=== PATIENT | male | born 1960 | race Caucasian/White ===

== ENCOUNTER 2019-11-22 12:22 | Observation (INO) | payer MEDICARE, SELFPAY ==
[2019-11-22] VITALS (46 sets, daily range): BP systolic 130–198; BP diastolic 56–110; PULSE 43–106; RESP 11–23; TEMP 36.6–37; O2SAT 92–97
--- NOTE | 2019-11-22 12:45 | DI.RAD_ITS ---
EXAM: XR CHEST 2V PA LATERAL XR CHEST 2V PA LATERAL CLINICAL HISTORY: dizziness dizziness TECHNIQUE: 2D digital imaging was performed. COMPARISON: No exams were available for comparison FINDINGS: The heart is not enlarged. The lungs are clear and well expanded. No pleural effusion seen. Mediastin al contours appear intact. IMPRESSION: Normal chest
[2019-11-22] MEDS: Normal Saline 1,000 ML 1000 ML IV (13:15)
[2019-11-22] MEDS: Normal Saline Flush 10 ML SYR IVP ×2 (13:15→21:41)
[2019-11-22 13:19] LABS: Abs Immature Grans 0.02 k/cumm (0.0-0.09); Absolute Basophil Count 0.03 k/cumm (0.0-0.2); Absolute Eosinophil Count 0.03 k/cumm (0.0-0.7); Absolute Lymphocyte Count 1.17 k/cumm (1.2-3.4); Absolute Neutrophil Count 6.89 k/cumm (1.2-6.7); Basophils % 0.3; Eosinophils % 0.3; HCT 46.2 % (40.0-50.0); HGB 15.5 g/dL (13.5-17.5); Immature Grans % 0.2 %; Lymphocytes % 13.5; Mean Corp. HGB Concentration 33.5 g/dL (32.0-36.0); Mean Corpuscular Hemoglobin 29.8 pg (27.0-33.0); Mean Corpuscular Volume 88.7 fL (80-95); Mean Platelet Volume 8.9 fL (8.0-11.0); Monocytes % 5.8; Neutrophils % 79.9; Platelet Count 268 x1000/uL (130-400); RBC 5.21 m/cumm (4.50-6.00); RBC Distribution Width 13.5 % (11.8-14.1); White Blood Cell Count 8.64 k/cumm (4.4-10.8)
[2019-11-22 13:37] LABS: ALT 36 U/L (16-63); AST 24 U/L (15-37); Alkaline Phosphatase 62 U/L (46-116); Anion Gap 8.6 mmol/L (3-11); BUN 17 mg/dL (7-18); Bilirubin, Total 0.4 mg/dL (0.2-1.0); CO2 27.4 mmol/L (21.0-32.0); CREATININE 0.96 mg/dL (0.70-1.30); Calcium 8.6 mg/dL (8.5-10.1); Chloride 103 mmol/L (98-107); Glucose 113 mg/dL (74-106); Sodium 139 mmol/L (136-145); Total Protein 7.6 g/dL (6.4-8.2)
[2019-11-22 13:40] LABS: Troponin I < 0.05 ng/Ml (<0.06)
[2019-11-22 13:52] LABS: D-Dimer 523 ng/mlFEU (<500)
--- NOTE | 2019-11-22 14:30 | DI.CT_ITS ---
EXAM: CT CHEST PE CTA CLINICAL HISTORY: dizziness, elevated ddimer TECHNIQUE: COMPARISON: No exams were available for comparison FINDINGS: CT angiography of the chest was performed with bolus infusion of 100 cc of Omnipaque 350. Images obt ained through the upper abdomen show probable hepatic steatosis with unremarkable appearance the visu alized portions of the spleen pancreas and adrenals. No evidence of pulmonary embolic disease. Thoracic aorta appears intact. No mediastinal or hilar ad enopathy. Lungs are clear. No pleural effusion or pleural-based mass. IMPRESSION: Negative CT angiography of the chest.
[2019-11-22] MEDS: Omnipaque 350 MG/ML 100 ML BTL IV (15:33)
--- NOTE | 2019-11-22 16:04 | W.ED.GENAD ---
Discharge Plan Disposition Patient Disposition: [facility] INPATIENT Condition: Good Discharge Details Chief Complaint: Dizzy/Sync Clinical Impression: Atypical chest pain Admit Date/Time: 11/22/19 18:17 Admit Provider: Mehrdad Marrufo Attending Provider: Mehrdad Marrufo Primary Care Provider: Da Ospina ED Provider: Joy Lee Discharge Data Discharge Date/Time-TO BE ENTERED AT DEPARTURE: 11/22/19 19:10 Medical Decision Making <DALE Dotson - Last Filed: 11/22/19 21:07> Care transitioned to myself from Cherelle Ramires PA-C, with consultation with hospitalist pending. Please see her initial documentation for exam and history and initial work-up. 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 She reports that patient came in complaining of nausea, clamminess, dizziness after working outside. He denied any chest pain. Initial EKG was significant for 1 mm change. Patient does have significant history including hypertension which has been poorly controlled as well as smoking history. Patient is obese. Secondary to financial restrictions, patient has not been able to take his antihypertensives 1 month. He was given nitroglycerin on arrival which did improve his persistent symptoms of dizziness and nausea. Patient's d-dimer was 523, CT was ordered and negative for pulmonary embolism. Troponin x2 was less than 0.05. Repeat EKG was significant for bigeminy. Patient has been on the monitor and been intermittently in bigeminy rhythm. Consulted with hospitalist regarding admission. Patient to be admitted for atypical chest pain, continue monitoring and consultation with cardiology tomorrow. <DALE Rajput - Last Filed: 11/23/19 15:05> Is a 59-year-old patient presenting to the emergency room for evaluation of lightheadedness nausea and diaphoresis which occurred while he was exerting himself at home. Patient reports symptoms were abrupt in onset and quite obvious. Patient reports mild relief in symptoms when resting then had return of lightheadedness and nausea. This prompted his evaluation to the emergency room. Patient at this time denies chest pain or radiating symptoms. Patient does report persistent head pressure as well as lightheadedness and nausea. Patient denies any syncopal episode. Patient reports diaphoresis is somewhat improved at this time. Denies any palpitations. Denies abdominal pain or bowel changes. No recent upper respiratory symptoms or flulike illness. Patient is a former smoker, family history of heart disease, history of hypertension hyperlipidemia. Initial labs ordered as well as EKG obtained. EKG reveals a heart rate of 104, sinus tachycardia, ectopic ventricular beats present. [address] segment elevation noted in V1 and V2 new compared to previous, however not meeting criteria for ST elevation MD. This was reviewed with Dr. Haynes. Patient given nitro given hypertension noted as well as persistent symptoms. After nitro patient's symptoms did entirely resolve. Initial labs reveal normal troponin, no associated leukocytosis. Patient's d-dimer is mildly elevated therefore CT with PE protocol ordered. Patient's calculated heart score is 5. Given patient's risk factors and concerning story upon presentation I will recommend this patient is admitted to the hospital for further evaluation. Spoke with the hospitalist recommending admission for the hospital however would prefer to wait for second troponin prior to admission to be sure no transfer is warranted. Repeat troponin also returned normal. Reevaluation of the patient reveals no persistent symptoms at this time. Patient signed out pending disposition specifically admission to the hospitalist. HPI <DALE Dotson - Last Filed: 11/22/19 21:07> General Date/Time Provider Initiated Documentation: 11/22/19 12:27. Related Data Home Medications Medication Instructions Recorded Confirmed aspirin 1 tab PO every other day tab 01/11/13 inhalational spacing device 01/11/13 [Aerochamber] levalbuterol tartrate [Xopenex Hfa] 2 puff INHALATION QID PRN #3 01/11/13 11/22/19 inhaler amlodipine 5 mg PO DAILY #30 tab 11/23/19 losartan 100 mg PO DAILY #90 tab 11/23/19 metoprolol succinate [Toprol XL] 25 mg PO DAILY #90 tab 11/23/19 Previous Rx's Medication Instructions Recorded amlodipine 5 mg PO DAILY #30 tab 11/23/19 losartan 100 mg PO DAILY #90 tab 11/23/19 metoprolol succinate [Toprol XL] 25 mg PO DAILY #90 tab 11/23/19 Allergies Allergy/AdvReac Type Severity Reaction Status Date / Time Penicillins Allergy Unknown Unverified 11/22/19 12:34 lisinopril AdvReac Intermediate JOINT PAIN Unverified 11/22/19 12:34 <DALE Rajput - Last Filed: 11/23/19 15:05> HPI Narrative: Is a 59-year-old patient presenting to the emergency room for complaints of lightheadedness, nausea and 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 Patient reports he was exerting himself during onset of symptoms. Patient reports he needed to stop, sit down. He did have minimal relief of symptoms at this time. Patient reports another wave of significant nausea and diaphoresis which prompted his evaluation to the emergency room. Patient denies active chest pain. Patient denies back pain. Patient denies difficulty breathing or shortness of breath or wheezing. Patient denies abdominal pain. No diarrhea. Patient denies any recent upper respiratory symptoms. Patient denies any fevers or chills. Patient reports at this time he has persistent nausea and a pressure type lightheaded feeling in his head. Patient does report he has been noncompliant with his blood pressure medication both losartan and amlodipine. Patient was been out of his blood pressure medication for 1 month and has been unable to fill them due to finances. Patient does report a history of hypertension as well as hyperlipidemia. Patient does have a significant family history mother had heart attacks and several strokes. Patient is a former smoker. Denies any personal history of MD in the past. General Stated Complaint: Dizzy/Sync CHARLES: 3 <DALE Rajput - Last Filed: 11/23/19 15:05> All systems reviewed & are unremarkable except as noted in HPI and below Constitutional Constitutional: Denies chills, Denies fatigue, Denies fever(s), Denies headache(s) and Denies malaise ENT Ears, Nose, Mouth, and Throat: Denies headache(s), Denies sinus pain, Denies sinus pressure and Denies sore throat Cardiovascular Cardiovascular: Denies chest pain, Denies chest pain at rest, Denies chest pain with activity, Reports diaphoresis, Denies syncope, Reports lightheadedness, Denies radiating jaw, neck or arm pain, Denies palpitations, Denies dyspnea and Denies dyspnea on exertion Respiratory Respiratory: Denies cough, Denies dyspnea, Denies dyspnea on exertion and Denies wheezing Gastrointestinal Gastrointestinal: Denies abdominal pain, Reports nausea and Denies vomiting Genitourinary Genitourinary: Denies dysuria Neurologic Neurologic: Denies syncope and Denies headache(s) Endocrine Endocrine: Denies fatigue and Denies palpitations Allergic/Immunologic Allergic/Immunologic: Denies wheezing PFSH <DALE Dotson - Last Filed: 11/22/19 21:07> Medical History HTN (hypertension) (Chronic) Surgical History (Updated 11/22/19 @ 23:19 by Mehrdad Marrufo) Failed back surgical syndrome (Acute) Social History Smoking/Tobacco Use Status: Former Tobacco Use Alcohol Intake: current Alcohol Intake frequency: a few times a month Drug use: Never Substance use type: does not use Details: quit smoking many years ago Do you feel safe at home: Yes Do you feel safe in your relationship?: Yes <DALE Rajput - Last Filed: 11/23/19 15:05> Narrative Exam Narrative: CONST: Healthy appearing patient, in no acute distress. Well hydrated. Alert and alert. HENMT: Head nomocephalic, normal to inspection. Atraumatic. Hearing grossly normal. External ear canal no erythema or swelling. TM normal bilaterally. Nose normal to inspection. No rhinnorhea. Normal facial exam. Oral mucosa normal. Tounge normal. Dentition normal. Normal posterior oropharynx. Uvula midline. EYES: General normal appearance. Alignment normal. Eyelids normal. Conjunctiva normal. Sclera normal. PERRL. NECK: Normal visual inspection. FROM. No lymphadenopathy. Trachea midline. No Midline tenderness. CHEST: Normal insepection of the chest. RESP: Normal respiratory effort. Speaking full sentences. No cough. No wheezing. No retractions. Clear to auscaltation. Breath sound equal and present bilaterally. CARDIO: No JVD. Normal PMI. Regular Rate. Regular Rhythm. Normal peripheral pulses. GI: Normal inspection of abdomen. No distension. Soft. Nontender. Bowel sounds present in all 4 quadrants. No rebound. No gaurding. MUSCULOSKELETAL: Normal Gait. FROM of all extremities. Distal neurovascularly intact. Sensation intact distally. Edema noted of bilateral lower legs left mildly greater than right SKIN: Normal. Dry. No rashes. NEURO: Alert and awake. Speech clear. PSYCH: Normal affect. Cooperative. <DALE Rajupt - Last Filed: 11/23/19 15:05> Vital Signs Vital signs: Vital Signs Temperature 36.8 C 11/22/19 12:27 Pulse 106 H 11/22/19 12:27 Respiratory Rate 18 11/22/19 12:27 Blood Pressure 191/84 H 11/22/19 12:27 Pulse Oximetry 97 11/22/19 12:27 Temperature 36.8 C 11/22/19 12:27 Temperature Source Skin 11/22/19 12:27 Pulse 65 11/22/19 14:40 Pulse 85 11/22/19 14:21 Respiratory Rate 11 L 11/22/19 14:50 Respiratory Effort Non-Labored 11/22/19 13:24 Respiratory Depth Normal 11/22/19 13:24 Respiratory Pattern Normal 11/22/19 13:24 Blood Pressure 147/67 H 11/22/19 14:40 Blood Pressure Mean 85 11/22/19 14:40 Blood Pressure Position Sitting 11/22/19 12:27 Pulse Oximetry 97 11/22/19 14:50 Oxygen Delivery Method Room Air 11/22/19 12:27 Oxygen Flow Rate 0 11/22/19 12:27 Pain Level 1 11/22/19 12:27 Lab/Test Results Lab/Test Results: Laboratory Tests Range/Units 11/22/19 11/22/19 11/22/19 13:10 13:10 13:10 WBC (4.4-10.8) k/cumm 8.64 RBC (4.50-6.00) m/cumm 5.21 Hgb (13.5-17.5) g/dL 15.5 Hct (40.0-50.0) % 46.2 MCV (80-95) fL 88.7 MCH (27.0-33.0) pg 29.8 MCHC (32.0-36.0) g/dL 33.5 RDW (11.8-14.1) % 13.5 Plt Count (130-400) x1000/uL 268 MPV (8.0-11.0) fL 8.9 Immature Gran % % 0.2 Neutrophils % 79.9 Lymphocytes % 13.5 Monocytes % 5.8 Eosinophils % 0.3 Basophils % 0.3 Absolute Neutrophils (1.2-6.7) k/cumm 6.89 H Absolute Lymphocytes (1.2-3.4) k/cumm 1.17 L Absolute Monocytes (0.11-0.7) k/cumm 0.50 Absolute Eosinophils (0.0-0.7) k/cumm 0.03 Absolute Basophils (0.0-0.2) k/cumm 0.03 D-Dimer (<500) ng/mlFEU 523 H Sodium (136-145) mmol/L 139 Potassium (3.5-5.1) mmol/L 4.0 Chloride (98-107) mmol/L 103 Carbon Dioxide (21.0-32.0) mmol/L 27.4 Anion Gap (3-11) mmol/L 8.6 BUN (7-18) mg/dL 17 Creatinine (0.70-1.30) mg/dL 0.96 Estimated GFR/1.73 m2 (mL/min/1.73m2) >= 60.00 Glucose (74-106) mg/dL 113 H Calcium (8.5-10.1) mg/dL 8.6 Total Bilirubin (0.2-1.0) mg/dL 0.4 AST (15-37) U/L 24 ALT (16-63) U/L 36 Alkaline Phosphatase (46-116) U/L 62 Troponin I (<0.06) ng/Ml < 0.05 Total Protein (6.4-8.2) g/dL 7.6 Albumin (3.4-5.0) g/dL 4.0 Sign Out <DALE Dotson - Last Filed: 11/22/19 21:07> Sign Out Data: Sign Out Comment: Signout pending disposition to hospitalist. Second troponin negative. Noted run of bigeminy on EKG. Last updated by Rosa Momin PA at 11/22/19 16:53
[2019-11-22 16:06] LABS: Troponin I < 0.05 ng/Ml (<0.06)
--- NOTE | 2019-11-22 21:14 | W.PM.HP.N ---
Date of service: 11/22/19 Time of Service: 21:14 Assessment and Plan Assessment and plan (1) Atypical chest pain: Start date: 11/22/19 Status: Acute Assessment and plan: This is a 59-year-old gentleman who had exertional symptoms which resolved with nitroglycerin sublingually in the ED. He denied any chest pressure or chest pain but did have dizziness with diaphoresis and nausea. Since his symptoms did resolve with nitroglycerin sublingually and they were exertional with cardiovascular risk being elevated with uncontrolled hypertension and truncal obesity, the patient was admitted for observation for serial cardiac troponins and for exercise stress tests with nuclear studies in the morning. Cardiology consultation was also ordered. He is a full code. (2) HTN (hypertension): Status: Chronic Assessment and plan: Patient been off his antihypertensives recently and we will restart his amlodipine and losartan with first dose is to be given tonight. Also will start IV metoprolol for acute blood pressure control. Watch for exacerbation of his bronchospasm with use of beta-blockers. He will have his inhalers as ordered at home as well as as needed treatment during his hospital stay. His asthma appears to be stable. 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 Over the last several weeks he has not been able to take his antihypertensives because of cost. 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 He denies any history of previous cardiac disease, cerebrovascular events or diabetes. 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 He then had an onset of diaphoresis and nausea which persisted with EMS being called. He arrived at the ED with hypotension and tachycardia which appeared to be sinus. EKG did not show any acute ST-T changes though some mild ST elevation in the anterior leads which did not resolve with resolution of his symptoms with his second nitroglycerin sublingually in the ED. At the time I saw the patient he was comfortable without shortness of breath, his diaphoresis had resolved and he had no nausea. He does have a strong family history of heart disease with the mother having a heart attack when she was 40 and eventually dying of a stroke. He does have chronic hypertension presently untreated as stated. He denies any edema or PND with the patient sleeping flat in bed on his side. Review of Systems Narrative: 13 point review of systems otherwise unrevealing or stable. Patient is overweight and this is been chronic. He has no focal neurological symptoms with his event. [facility] Medical History (Updated 11/22/19 @ 23:22 by Mehrdad Marrufo) Asthma dependent on inhaled steroids (Acute) HTN (hypertension) (Chronic) Surgical History (Updated 11/22/19 @ 23:19 by Mehrdad Marrufo) Failed back surgical syndrome (Acute) Social History (Updated 06/23/18 @ 14:15 by Rito Restrepo) Smoking/Tobacco Use Status: Former Tobacco Use Alcohol Intake: current Alcohol Intake frequency: a few times a month Drug use: Never Substance use type: does not use Details: quit smoking many years ago Do you feel safe at home: Yes Do you feel safe in your relationship?: Yes Meds Home Medications and Allergies Home Medications Medication Instructions Recorded Confirmed Type aspirin 1 tab PO every other day tab 01/11/13 History fluticasone propion-salmeterol 1 puff INHALATION BID disk 01/11/13 11/22/19 History [Advair 250-50 Diskus] inhalational spacing device 01/11/13 History [Aerochamber] ipratropium-albuterol [Duoneb 0.5 1 amp UPD QID PRN 01/11/13 11/22/19 History Mg-3 Mg/3 Ml Soln] levalbuterol tartrate [Xopenex Hfa] 2 puff INHALATION QID PRN #3 01/11/13 11/22/19 History inhaler amlodipine 5 mg tablet 5 mg PO DAILY #90 tab-cap 02/24/19 11/22/19 Rx losartan 100 mg tablet 100 mg PO DAILY #90 tab-cap 09/14/19 11/22/19 Rx Allergies Allergy/AdvReac Type Severity Reaction Status Date / Time Penicillins Allergy Unknown Unverified 11/22/19 12:34 lisinopril AdvReac Intermediate JOINT PAIN Unverified 11/22/19 12:34 Exam Narrative Exam Narrative: General: Patient appears appropriate for age, in no acute distress and alert and oriented x3. He is moderately obese but mesomorphic. Neck: Supple without JVD. Lungs: Fair aeration with bronchovesicular breath sounds diffusely but no expiratory wheeze or inspiratory focal rales or rhonchi. Back: Stooped posture with no CVA tenderness. Loss of lumbar lordotic curve. Heart: Regular rate and rhythm with no murmurs appreciated. No gallops. Abdomen: Obese contour, soft and nontender with no palpable hepatosplenomegaly. Bowel sounds positive all quadrants. Genitalia/rectal: Exam deferred. Extremities: Nonpitting edema both lower extremities without cyanosis or clubbing. Joints have fair range of motion with no edema. Peripheral pulses are intact with good capillary refill. Skin: Pale, warm and dry with diffuse actinic changes with no suspicious lesions. Neuro: Cranial nerves II through XII grossly intact, no focalizing motor deficits with sensory grossly intact. Psych: Normal mood and affect, remote and recent memory intact. Results Imaging Imaging Studies: EXAM: CT CHEST PE CTA CLINICAL HISTORY: dizziness, elevated ddimer TECHNIQUE: COMPARISON: No exams were available for comparison FINDINGS: CT angiography of the chest was performed with bolus infusion of 100 cc of Omnipaque 350. Images obtained through the upper abdomen show probable hepatic steatosis with unremarkable appearance the visualized portions of the spleen pancreas and adrenals. No evidence of pulmonary embolic disease. Thoracic aorta appears intact. No mediastinal or hilar adenopathy. Lungs are clear. No pleural effusion or pleural-based mass. IMPRESSION: Negative CT angiography of the chest. EXAM: XR CHEST 2V PA LATERAL XR CHEST 2V PA LATERAL CLINICAL HISTORY: dizziness dizziness TECHNIQUE: 2D digital imaging was performed. COMPARISON: No exams were available for comparison FINDINGS: The heart is not enlarged. The lungs are clear and well expanded. No pleural effusion seen. Mediastinal contours appear intact. IMPRESSION: Normal chest Labs Result diagrams: 11/22/19 13:10 11/22/19 13:10 Labs: Laboratory Results - last 24 hr 11/22/19 11/22/19 11/22/19 13:10 13:10 13:10 WBC 8.64 RBC 5.21 Hgb 15.5 Hct 46.2 MCV 88.7 MCH 29.8 MCHC 33.5 RDW 13.5 Plt Count 268 MPV 8.9 Immature Gran % 0.2 Neutrophils % 79.9 Lymphocytes % 13.5 Monocytes % 5.8 Eosinophils % 0.3 Basophils % 0.3 Absolute Neutrophils 6.89 H Absolute Lymphocytes 1.17 L Absolute Monocytes 0.50 Absolute Eosinophils 0.03 Absolute Basophils 0.03 D-Dimer 523 H Sodium 139 Potassium 4.0 Chloride 103 Carbon Dioxide 27.4 Anion Gap 8.6 BUN 17 Creatinine 0.96 Estimated GFR/1.73 m2 >= 60.00 Glucose 113 H Calcium 8.6 Total Bilirubin 0.4 AST 24 ALT 36 Alkaline Phosphatase 62 Troponin I < 0.05 Total Protein 7.6 Albumin 4.0 11/22/19 15:40 WBC RBC Hgb Hct MCV MCH MCHC RDW Plt Count MPV Immature Gran % Neutrophils % Lymphocytes % Monocytes % Eosinophils % Basophils % Absolute Neutrophils Absolute Lymphocytes Absolute Monocytes Absolute Eosinophils Absolute Basophils D-Dimer Sodium Potassium Chloride Carbon Dioxide Anion Gap BUN Creatinine Estimated GFR/1.73 m2 Glucose Calcium Total Bilirubin AST ALT Alkaline Phosphatase Troponin I < 0.05 Total Protein Albumin Last Vital Signs Temp 36.6 C 11/22/19 19:34 Pulse 88 11/22/19 20:50 Resp 19 11/22/19 19:34 BP 165/110 H 11/22/19 19:34 Pulse Ox 96 11/22/19 19:34
[2019-11-22] MEDS: amLODIPine 5 MG TAB PO (21:33)
[2019-11-22] MEDS: Enoxaparin 40 MG/0.4 ML SYR SC (21:34)
[2019-11-22] MEDS: Losartan 50 MG TAB 100 MG PO (21:34)
[2019-11-22] MEDS: Metoprolol 5 MG/5 ML VIAL IVP (21:41)
[2019-11-22 22:30] LABS: Troponin I < 0.05 ng/Ml (<0.06)
--- NOTE | 2019-11-23 | DI.NM_ITS ---
APPROVED REPORT Exam: Exercise Treadmill Patient Location: In-Patient Room/Bed: 216 Stress Nurse: Nohemy Avendaño RN BMI: 46.80 Baseline Rhythm: Sinus Rhythm w/ multiform PVC's Comment: Also noted Ventricular Bigeminy when patient was standing prior to stress test. Indications: Patient testing today for further risk stratification. 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 Patient states he did not have chest pain with this episode. Troponins have been negative X3. Medical History Medical History: Obesity Cardiac Medications: Aspirin, Amlodipine, Losartan. Allergies: Penicillin, Lisinopril Cardiac Risk Factors: FHX of CAD, HTN, Asthma Previous Cardiac Procedures: None Pretest Chest Pain Characteristics: None Exercise History: Physically active Physical Disabilities: None Lung Sounds: Clear to auscultation and diminished Heart Sounds: Irregular Stress Test Details Test: Exercise stress testing was performed using a Jairo protocol. Rest Stress HR Resting HR Supine: 99 bpm Max Heart Rate (APMHR): 160 bpm Resting HR Standin bpm Target HR (85% APMHR): 136 bpm Max HR Achieved: 164 bpm % of APMHR: 102 HR response to stress: Normal HR response to stress Comment: 152 BP Resting BP Supine: 152/90 mmHg Resting BP Standin/72 mmHg Max BP: 190/82 mmHg BP response to stress: Normal blood pressure response to stress. ECG Resting ECG: Sinus Rhythm, Bigeminy Ectopy: Bigeminy Stress ECG: Sinus Tachycardia ST Change: Normal Arrhythmia: VPC's Recovery ECG: Sinus Rhythm, Multiple PVCs/couplets Recovery Arrhythmia: VPC Comment: Recovery period noted frequent PVC's, occasional unifocal PVC couplets, intermittent ventric ular bigeminy/trigeminy. Clinical Reason for Termination: Dyspnea Stress Symptoms: Dyspnea Exercise duration: 6 min32 sec Highest Stage Reached: Stage 3: 3.4 mph at 14% grade. Exercise capacity: 7.87 METs Functional Capacity: Mildly deminished capacity Stress ECG Conclusion 1. Patient exercised for 6 minutes and 30 seconds (8 METS). Rate-pressure product was 27,000. The p atient no symptoms associated with ischemia 2. The patient had multiple PVCs at baseline and occasional bigeminy. During exercise burden of PVCs decreased. During recovery again he had significant PVC burden. 3. There is no evidence of ischemia on the ECG portion of this exam. 4. The Rodriguez Score (6) estimates an annual cardiovascular mortality of 0% and a five year survival of 95%. Using the Rodriguez Score there is a low probability of any angiographic coronary disease. Protocol Used: Jairo Protocol Stress Test Summary STAGE Time (mins) Speed (mph) Grade (%) HR BP SYMPTOMS METS Supine 99 152/90 Standing 109 136/72 1 3 1.7 10 135 148/86 4.6 2 6 2.5 12 154 168/90 7 3 9 3.4 14 10.2 4 12 4.2 16 12.9 5 15 5.0 18 17.2 1 min recovery 148 190/82 3 min recovery 113 160/90 6 min recovery 103 148/92 9 min recovery 12 min recovery
[2019-11-23 00:24] VITALS: BP 148/78; PULSE 77; RESP 19; TEMP 36.8; O2SAT 96
[2019-11-23] MEDS: Aspirin 81 MG CHEW 162 MG PO ×2 (00:28→08:27)
[2019-11-23 04:08] VITALS: BP 145/83; PULSE 76; RESP 16; TEMP 36.6; O2SAT 94
[2019-11-23 06:40] LABS: Troponin I < 0.05 ng/Ml (<0.06)
[2019-11-23 07:21] VITALS: BP 128/77; PULSE 79; RESP 16; TEMP 36.7; O2SAT 96
[2019-11-23 07:52] LABS: HCT 45.8 % (40.0-50.0); HGB 15.3 g/dL (13.5-17.5); Mean Corp. HGB Concentration 33.4 g/dL (32.0-36.0); Mean Corpuscular Hemoglobin 29.9 pg (27.0-33.0); Mean Corpuscular Volume 89.5 fL (80-95); Mean Platelet Volume 9.2 fL (8.0-11.0); Platelet Count 245 x1000/uL (130-400); RBC 5.12 m/cumm (4.50-6.00); RBC Distribution Width 13.8 % (11.8-14.1); White Blood Cell Count 6.94 k/cumm (4.4-10.8)
[2019-11-23 08:11] LABS: ALT 35 U/L (16-63); AST 19 U/L (15-37); Albumin 3.6 g/dL (3.4-5.0); Alkaline Phosphatase 59 U/L (46-116); Anion Gap 7.7 mmol/L (3-11); BUN 15 mg/dL (7-18); Bilirubin, Total 0.5 mg/dL (0.2-1.0); CO2 28.3 mmol/L (21.0-32.0); CREATININE 0.96 mg/dL (0.70-1.30); Calcium 8.3 mg/dL (8.5-10.1); Chloride 104 mmol/L (98-107); Glucose 107 mg/dL (74-106); Potassium 3.9 mmol/L (3.5-5.1); Sodium 140 mmol/L (136-145); Total Protein 7.2 g/dL (6.4-8.2)
--- NOTE | 2019-11-23 08:11 | INITIAL_ITS ---
- If Service Date Differs Date of service: 11/23/19 Time of Service: 08:11 Care Management Initial Assess REASON FOR HOSPITALIZATION:: Atypical chest pain, HTN PAST MEDICAL HISTORY/PAST SURGICAL HISTORY:: HTN, back surgery PREVIOUS FUNCTIONAL STATUS/SOCIAL/FAMILY SUPPORTS:: Bean is he lives alone in [facility] he is disabled related to a back injury. 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 His children are local and supportive. His daughter is here with him today. Bean has no support services or equipment at home he states he is independent with ADL's CURRENT FUNCTIONAL STATUS:: Jose Ramon is sitting up in the chair he is alert and engaged during assessment. He states that he was confused about his insurance he thought he had medication assistance through [place] medicaid however CM verified this is not active. ADVANCE DIRECTIVES:: None on file Has patient been provided with information about the portal?: Yes Did the patient sign up for the portal?: No CODE STATUS:: Full Code INSURANCE COVERAGE / FINANCIAL ISSUES:: Medicare CURRENT HOME/COMMUNITY SERVICES/EQUIPMENT:: None PRIMARY CARE PHYSICIAN:: POTENTIAL DISCHARGE NEEDS:: Referral to [facility] assistance with [facility], primary care follow up scheduled 11/29/2019. Patient will need prescription assistance in the future. CM was able to have all the scripts faxed to [facility] in [place] and total of meds under 50.00 for one month supply. PATIENT/FAMILY EDUCATION NEEDS:: Education related to benefits, medications, coordination of dietary consult and review of referrals and resources in the community to assist with additional resources. ANTICIPATED BARRIERS TO DISCHARGE:: None TRANSPORTATION:: Via private car with daughter at time of discharge PLAN:: Jose Ramon is being discharged home today after his stress test. He will follow up with primary care and a referral to [facility] for insurance assistance and [facility]. He will have enough medications for 30 days and he and his daughter are aware he can obtain his prescriptions at [facility] pharmacy for less cost if he is unable to obtain prescription plan.
[2019-11-23] MEDS: amLODIPine 5 MG TAB PO (08:27)
[2019-11-23] MEDS: Losartan 50 MG TAB 100 MG PO (08:27)
[2019-11-23 11:10] VITALS: BP 118/79; PULSE 94; RESP 22; TEMP 36.6; O2SAT 96
--- NOTE | 2019-11-23 12:37 | W.NUTCONSULT ---
Date of service: 11/23/19 Time of Service: 12:37 Nutritional Consult ASSESSMENT: 59 year old male admitted with chest pain. PMH: HTN, morbid obesity. Currently NPO for procedure, diet will be advanced to heart healthy at dinner. Not considered at nutritional risk at this time. MONITORING AND EVALUATION: weight, po intake, labs Time Spent in Nutritional Counseling and Treatment: 0 time spent face to face
--- NOTE | 2019-11-23 13:02 | DSE_ITS ---
DS: Diagnosis Discharge Diagnosis (1) Atypical chest pain: Status: Resolved Asessment and Plan: Resume your home blood pressure medications of losartan 100 mg daily along with amlodipine 5 mg daily. New medications include Toprol XL 25 mg daily (metoprolol succinate 25 mg daily). continue aspirin 81 mg daily. get your cholesterol level and glycohemoglobin A1c checked in the next two weeks and follow up w/ Dr. Ospina in the next 2 weeks. If you have any recurrent chest pain or pressure or unusual shortness of breath, return to the emergency room or call 911. (2) HTN (hypertension): Status: Chronic Asessment and Plan: Your blood pressure has come under much better control since initiation of amlodipine and losartan. New prescriptions have been given to you to resume your blood pressure medications. You have also been started on metoprolol succinate 25 mg once a day for treatment of ectopic ventricular beats. (3) Ventricular ectopy: Status: Acute Asessment and Plan: Begin metoprolol succinate 25 mg daily. Follow-up with your primary care physician in the next 2 weeks. Consider obtaining a Holter monitor as an outpatient. Discharge Plan Disposition Patient Disposition: HOME Condition: Good Discharge Details Chief Complaint: Dizzy/Sync Clinical Impression: Atypical chest pain Reason For Visit: ATYPICAL EXERTINAL CHEST PAIN,UNCONTR HYPERTENSION Admit Date/Time: 11/22/19 18:17 Admit Provider: Mehrdad Marrufo Attending Provider: Mehrdad Marrufo Primary Care Provider: Da Ospina ED Provider: [facility] Course Hospital Course: 59-year-old carreon with history of hypertension who is been off his medications for the past month secondary to cost. He presented emergency department with lightheadedness and dizziness and diaphoresis and nausea associated with exertion. He was noted to be significantly hypertensive and tachycardic in the emergency department with blood pressures upwards of 198/96. Patient had serial troponins obtained which were negative and serial EKGs that did not show acute ischemic changes. His symptoms resolved with 2 nitroglycerin tablets. He was subsequently hospitalized overnight and blood pressures remained stable after resumption of his losartan and Norvasc. He underwent a treadmill gated exercise stress test which was supervised by Dr. Mehrdad Vides. According to Dr. Vides there was no acute ischemic changes. However his baseline ECG demonstrates sinus rhythm with ventricular bigeminy. His resting heart rate standing was 109 bpm and his maximum heart rate achieved was 164 bpm which is above his predicted maximal heart rate of 160 bpm his maximum blood pressure with exercise was 190/82. During the recovery. He had PVCs including couplets and unifocal and intermittent runs of ventricular bigeminy and trigeminy. He exercised for 12 6 minutes and 30 seconds achieving 8 METS. He demonstrated no evidence of ischemia on the ECG portion of exam. His Rodriguez risk score was 6 giving him an annual cardiovascular mortality of 0% and a 5-year survival of 95%. Based on this the patient was felt to be medically stable for discharge. Post stress test he felt fine and denied any shortness of breath or chest pain. He is advised to resume his home blood pressure medications including amlodipine 5 mg daily and losartan 100 mg daily and to add Toprol-XL 25 mg daily for his PVCs. An outpatient glycohemoglobin A1c and lipid profile will be obtained to help further risk stratify him and treat secondary causes of coronary artery disease. Home Meds and New Rx's Prescriptions: New amlodipine 5 mg Tablet 5 mg PO DAILY Qty: 30 RF: 1 metoprolol succinate [Toprol XL] 25 mg tablet extended release 24 hr 25 mg PO DAILY Qty: 90 RF: 0 losartan 100 mg tablet 100 mg PO DAILY Qty: 90 RF: 0 Continued aspirin 325 MG tablet 1 tab PO every other day RF: 0 Discontinued fluticasone propion-salmeterol [Advair Diskus] 1 EACH blister with device 1 puff Inhalation BID RF: 0 ipratropium-albuterol [DuoNeb] 3 ML solution for nebulization 1 amp UPD QID PRNRF: 0 amlodipine 5 mg tablet 5 mg PO DAILY Qty: 90 RF: 4 losartan 100 mg tablet 100 mg PO DAILY Qty: 90 RF: 3 No Action (DME) inhalational spacing device [Aerochamber Plus Flow-Vu,S Msk] 1 EACH spacer 1 ea Miscellaneous QID RF: 0 levalbuterol tartrate [Xopenex HFA] 15 GM HFA aerosol inhaler 2 puff Inhalation QID PRNQty: 3 RF: 4 Discharge Instructions Instructions: Chest Pain (DC), Hypertension (DC) Stand Alone Forms: Nursing Discharge Form Referrals: Da Ospina DO [Primary Care Provider] - Activity:: Activity as Tolerated Equipment/Supplies:: No Equipment Needed Diet:: Low-cholesterol Discharge Orders Discharge Orders: Discharge Order (Routine); Ordered 11/23/19 Ordered By: Pillo Queen Other Ambulatory Orders: Hemoglobin A1C (Routine) Timeframe: 2 Weeks Facility: [facility] - Location: Laboratory Ordered By: Pillo Queen Lipid 2 (Routine) Timeframe: 2 Weeks Facility: [facility] - Location: Laboratory Ordered By: Pillo Queen DS: Summary Status at Discharge Functional status at discharge: independent ambulation Overall status at discharge: patient is back to baseline Mental Status: mental status grossly normal Speech and Movement: speech and movement normal Mood: congruent mood Affect: normal affect Exam Narrative Exam Narrative: Obese male sitting up in his chair in no distress. He is alert and oriented person place time circumstance. Very pleasant to talk with. All questions were answered for the patient as well as the patient's daughter. Lungs are clear to auscultation. Heart is regular with frequent ectopic beats. No audible murmur or rub. Abdomen is obese and soft and nontender. Psych Mental Status: mental status grossly normal Speech and Movement: speech and movement normal Mood: congruent mood Affect: normal affect DS: Data Vitals/I&O Vitals and I&O: Vital Signs Temperature 36.6 C 11/23/19 11:10 Temperature Source Tympanic 11/23/19 11:10 Pulse 94 H 11/23/19 11:10 Pulse Rhythm Regular 11/23/19 08:30 Pulse 81 11/22/19 18:40 Respiratory Rate 22 11/23/19 11:10 Respiratory Effort Non-Labored 11/23/19 08:30 Respiratory Depth Normal 11/23/19 08:30 Respiratory Pattern Normal 11/23/19 08:30 Blood Pressure 118/79 11/23/19 11:10 Blood Pressure Mean 76 11/22/19 17:40 Blood Pressure Position Sitting 11/22/19 12:27 Pulse Oximetry 96 11/23/19 11:10 Oxygen Delivery Method Room Air 11/23/19 11:10 Oxygen Flow Rate 0 11/23/19 11:10 Pain Level 0 11/23/19 11:10 Intake & Output 11/22/19 11/23/19 11/23/19 23:59 11:59 23:59 Intake Total 10 Output Total 300 / 300 400 / 400 Balance -290 / -290 -400 / -400 Weight 140.8 kg 135.1 kg Intake: IV Output: Urine 300 / 300 400 / 400 Other: Urine Color Yellow Yellow Urine Appearance Clear Clear Stool Size Small Stool Characteristics Liquid Voiding Methods Toilet Data Completed and Pending Labs on day of discharge: Labs from last 24 hours 11/23/19 11/23/19 11/23/19 07:25 07:25 05:35 WBC 6.94 RBC 5.12 Hgb 15.3 Hct 45.8 MCV 89.5 MCH 29.9 MCHC 33.4 RDW 13.8 Plt Count 245 MPV 9.2 Immature Gran % Neutrophils % Lymphocytes % Monocytes % Eosinophils % Basophils % Absolute Neutrophils Absolute Lymphocytes Absolute Monocytes Absolute Eosinophils Absolute Basophils D-Dimer Sodium 140 Potassium 3.9 Chloride 104 Carbon Dioxide 28.3 Anion Gap 7.7 BUN 15 Creatinine 0.96 Estimated GFR/1.73 m2 >= 60.00 Glucose 107 H Calcium 8.3 L Total Bilirubin 0.5 AST 19 ALT 35 Alkaline Phosphatase 59 Troponin I < 0.05 Total Protein 7.2 Albumin 3.6 TSH 11/22/19 11/22/19 11/22/19 21:50 15:40 13:10 WBC RBC Hgb Hct MCV MCH MCHC RDW Plt Count MPV Immature Gran % Neutrophils % Lymphocytes % Monocytes % Eosinophils % Basophils % Absolute Neutrophils Absolute Lymphocytes Absolute Monocytes Absolute Eosinophils Absolute Basophils D-Dimer Sodium Potassium Chloride Carbon Dioxide Anion Gap BUN Creatinine Estimated GFR/1.73 m2 Glucose Calcium Total Bilirubin AST ALT Alkaline Phosphatase Troponin I < 0.05 < 0.05 Total Protein Albumin TSH 1.20 11/22/19 11/22/19 11/22/19 13:10 13:10 13:10 WBC 8.64 RBC 5.21 Hgb 15.5 Hct 46.2 MCV 88.7 MCH 29.8 MCHC 33.5 RDW 13.5 Plt Count 268 MPV 8.9 Immature Gran % 0.2 Neutrophils % 79.9 Lymphocytes % 13.5 Monocytes % 5.8 Eosinophils % 0.3 Basophils % 0.3 Absolute Neutrophils 6.89 H Absolute Lymphocytes 1.17 L Absolute Monocytes 0.50 Absolute Eosinophils 0.03 Absolute Basophils 0.03 D-Dimer 523 H Sodium 139 Potassium 4.0 Chloride 103 Carbon Dioxide 27.4 Anion Gap 8.6 BUN 17 Creatinine 0.96 Estimated GFR/1.73 m2 >= 60.00 Glucose 113 H Calcium 8.6 Total Bilirubin 0.4 AST 24 ALT 36 Alkaline Phosphatase 62 Troponin I < 0.05 Total Protein 7.6 Albumin 4.0 TSH [facility] Medical History (Updated 11/23/19 @ 13:06 by Pillo Queen) Asthma dependent on inhaled steroids (Acute) HTN (hypertension) (Chronic) Surgical History (Updated 11/22/19 @ 23:19 by Mehrdad Marrufo) Failed back surgical syndrome (Acute) Social History (Updated 06/23/18 @ 14:15 by Rito Restrepo) Smoking/Tobacco Use Status: Former Tobacco Use Alcohol Intake: current Alcohol Intake frequency: a few times a month Drug use: Never Substance use type: does not use Details: quit smoking many years ago Do you feel safe at home: Yes Do you feel safe in your relationship?: Yes
--- NOTE | 2019-11-23 13:58 | W.NUTRFU ---
Date of service: 11/23/19 Time of Service: 13:58 Nutritional Follow up NOTE: Educated Bean on DASH diet and provided him with my contact information to follow up in outpatient setting. Also, recommend referral to cardiac rehab and [facility] for weight loss. Bean is motivated to lose 40 lbs and improve his nutritional status by incorporating more lean protein, fruits, vegetables. Time Spent in Nutritional Counseling and Treatment: 20 min
== END 2019-11-23 14:30 | disposition home or self-care (01) ==
LOC: ER 18:53 → MS 19:11
PROVIDERS: Physician Assistant; Admitting Provider Family Medicine; Emergency Provider Physician Assistant; PCP Emergency Medicine; Visit Provider Internal Medicine
DX: R07.89 Other chest pain (principal); I10 Essential (primary) hypertension; I49.3 Ventricular premature depolarization; R00.0 Tachycardia, unspecified; T46.5X6A Underdosing of other antihypertensive drugs, initial encounter; T46.1X6A Underdosing of calcium-channel blockers, initial encounter; Z91.120 Patient's intentional underdosing of medication regimen due to financial hardship; Z87.891 Personal history of nicotine dependence; E66.9 Obesity, unspecified; Z68.42 Body mass index [BMI] 45.0-49.9, adult; Z82.49 Family history of ischemic heart disease and other diseases of the circulatory system; J45.909 Unspecified asthma, uncomplicated
CPT/HCPCS: 36415; 71275; 78452; 80053; 85027; 93005; 93016; 93018; 96360; 96361; 99220; 99239; 99285; J1650; 71046; 84443; 84484; 85025; 85379; 93010; 93017; 99217; G0378; J3490

== ENCOUNTER → 2020-01-21 02:02 | Outpatient (CLI) | payer MEDICARE, SELFPAY | PROVIDERS: PCP Emergency Medicine; Visit Provider Emergency Medicine | DX: R06.09 Other forms of dyspnea (principal) | CPT/HCPCS: 93225 ==

== ENCOUNTER → 2020-01-24 08:22 | Outpatient (CLI) | payer MEDICARE, SELFPAY ==
--- NOTE | 2020-01-24 08:48 | W.HOLTRPT ---
Date of service: 01/24/20 Time of Service: 08:48 Holter Monitor Report Holter Monitor Note: This is a 24-hour Holter monitor ordered for indication of dyspnea. ?The patient was in normal sinus rhythm for the majority of the recording. ?There were 0 episodes of supraventricular tachycardia and 0 episodes of ventricular tachycardia. ?There were occasional (4%) single ventricular ectopic beats. There were couplets as well as triplets. Total ventricular ectopic beat burden was 12%. ?There were no pauses greater than 3 seconds, no atrial fibrillation no evidence of high degree heart block. ?There were no patient triggered events.
== END ==
PROVIDERS: PCP Emergency Medicine; Visit Provider Emergency Medicine
DX: R06.00 Dyspnea, unspecified (principal); I49.3 Ventricular premature depolarization; I10 Essential (primary) hypertension
CPT/HCPCS: 93227; 99204; 99443; 93226

== ENCOUNTER 2020-01-27 00:53 | Outpatient (CLI) | payer MEDICARE, SELFPAY ==
--- NOTE | 2020-01-27 07:37 | DI.US_ITS ---
APPROVED REPORT EXAM: Comprehensive 2D, Doppler, and color-flow Echocardiogram Patient Location: Out-Patient [employer] Administrator: Carmella Dominguez RDCS (AE) Indications: Ventricular Bigeminy, MAX Other Information Study Quality: Adequate Conclusion Left Ventricle : Left ventricle is borderline dilated. The left ventricular systolic function is norm al. The left ventricular ejection fraction is within the normal range. Mild concentric left ventricul ar hypertrophy. There is normal LV segmental wall motion. Diastolic function is indeterminate. LVEF i s 45-50%. Right Ventricle : The right ventricle is normal size. The right ventricular systolic function is norm al. Atria : The left atrium size is normal. The right atrium size is normal. Valves: There are no hemodynamically significant valvular lesions. Great Vessels : IVC is normal in size and collapses >50% with inspiration. Please see the remainder of report for additional details. There is no prior echocardiogram available for comparison. Wall motion Left Ventricle Left ventricle is borderline dilated. The left ventricular systolic function is normal. The left vent ricular ejection fraction is within the normal range. Mild concentric left ventricular hypertrophy. T here is normal LV segmental wall motion. Diastolic function is indeterminate. There is no ventricular septal defect visualized. LVEF is 45-50%. Right Ventricle The right ventricle is normal size. The right ventricular systolic function is normal. Atria The left atrium size is normal. The right atrium size is normal. The interatrial septum is intact wit h no evidence for an atrial septal defect. Aortic Valve Aortic valve is trileaflet. There is no aortic valvular stenosis. No aortic regurgitation is present. Mitral Valve There is mitral annular calcification. No evidence of mitral valve stenosis. Trace mitral regurgitati on. Tricuspid Valve The tricuspid valve is normal in structure. There is no tricuspid valve stenosis. Mild tricuspid regu rgitation. Pulmonic Valve Pulmonic valve is not well visualized. There is no pulmonic valvular stenosis. Trace pulmonic regurgi tation. Great Vessels The aortic root is normal in size. The ascending aorta is normal in size. IVC is normal in size and c ollapses >50% with inspiration. Pericardium There is no pericardial effusion. There is no pleural effusion. 2D Dimensions IVSD d PLAX 1.25 cm M: 0.6-1.2 LV Vol A2C d MOD 162.7 mL LVPW d PLAX 1.26 cm M: 0.6 - 1.2 LV Vol A4C d MOD 184.5 mL LVID d PLAX 4.93 cm M: 4.2 - 5.8 LA vol/ BSA A2C s A-L 37.5 mL/m2 LVDs 3.75 cm M: 2.5 - 4.0 LA vol/ BSA A4C s A-L 35.3 mL/m2 Ao Root d 2.48 cm M: 3.1 - 3.7 LA Vol/ BSA Biplane s A-L 36.7 mL/m2 RA Area A4C 21.88 cm2 LA Area A4C s MOD 24.18 cm2 RA Vol/ BSA A4C s A-L 30.9 mL/m2 LA Area A2C s MOD 25.12 cm2 Ao Asc Diam d 2.75 cm M: 2.6 - 3.4 LV EF A4C MOD 47.4 % LV EF Teichholz 46.3 % LV EF A2C MOD 44.3 % LVEF (Lainez's) 45.14 % M: 52 - 72 LV EF Biplane MOD 45.1 % LV Volume 123.72 mL M: 62 - 150 LV Volume Index 52.87 mL/m2 M: 34 - 74 LV Vol Biplane MOD 173.4 mL FS 23.15 % M-Mode TAPSE 2.74 cm (M/F) >1.7 LV Diastology E/A Ratio 0.9 MV E Vmax 0.90 (0.4-1.3 m/s) MV A Vmax 0.95 (0.4-1.3 m/s) MV E/A Ratio 0.92 Aortic Valve LVOT Area 3.33 cm2 AoV Area Vmax 2.96 cm2 LVOT Vmax 1.18 m/s AoV Area/ BSA (Vmax) 1.26 cm2/m2 LVOT Mean Jason. 0.72 m/s CHAU Mean Jason. 2.60 cm2 LVOT Peak Grad 5.6 mmHg CHAU Mean Jason. Index 1.11 cm2/m2 LVOT Mean Grad 2.5 mmHg LVOT VTI 0.234 m LVOT Diam s 2.05 cm (M/F) 1.5-2.5 AoV Vmax 1.33 (0.5-1.3 m/s) Velocity Ratio 0.88 AoV Mean Jason. 0.92 m/s AoV Peak Grad 7.0 mmHg LVOT SV 78.13 mL AoV Mean Grad 3.8 (<5 mmHg) AoV VTI 0.264 (0.18-0.25 m) AoV Area VTI 2.96 (2.5-4.5 cm2) AoV Area/ BSA (VTI) 1.26 cm/m2 Mitral Valve MV DT 217 (160-240 msec) MV PHT 63 msec MV Area PHT 3.50 cm2 Pulmonary Valve PV Vmax 1.31 (0.5-1.5 m/s) RVOT Peak Gr. 2.89 mmHg PV Peak Grad 6.8 mmHg RVOT Mean Gr. 1.35 mmHg PV Mean Grad 3.6 mmHg RVOT VTI 0.169 m PV VTI 0.223 m RVOT Vmax 0.85 m/s Tricuspid Valve TR Peak Grad 28.9 mmHg TR Vmax 2.69 m/s RA Pressure 3.00 mmHg RVSP (TR) 31.9 mmHg
== END 2020-01-27 01:13 ==
PROVIDERS: PCP Emergency Medicine; Visit Provider Emergency Medicine
DX: R06.09 Other forms of dyspnea (principal); I49.3 Ventricular premature depolarization; I10 Essential (primary) hypertension
CPT/HCPCS: 93306

== ENCOUNTER → 2020-03-03 02:48 | Outpatient (CLI) | payer MEDICARE, SELFPAY | PROVIDERS: PCP Emergency Medicine; Visit Provider Emergency Medicine | DX: R06.09 Other forms of dyspnea (principal); I47.2 Ventricular tachycardia; I10 Essential (primary) hypertension; R06.00 Dyspnea, unspecified; I50.9 Heart failure, unspecified; E66.01 Morbid (severe) obesity due to excess calories | CPT/HCPCS: 36415; 80061; 83880; 93225 ==

== ENCOUNTER 2020-03-03 03:08 | Outpatient (CLI) | payer MEDICARE, SELFPAY ==
[2020-03-03 11:45] LABS: NT-proBNP 141 pg/mL (<300)
[2020-03-03 11:56] LABS: Calculated LDL 92 mg/dL (<100); Cholesterol 155 mg/dL (<200); HDL Cholesterol 45 mg/dL (40-60); Triglyceride 92 mg/dL (<150)
== END 2020-03-03 03:28 ==
PROVIDERS: PCP Emergency Medicine; Visit Provider Emergency Medicine
DX: I50.9 Heart failure, unspecified (principal); R06.00 Dyspnea, unspecified; I10 Essential (primary) hypertension; E66.01 Morbid (severe) obesity due to excess calories
CPT/HCPCS: 36415; 80061; 83880

== ENCOUNTER → 2020-03-06 11:27 | Outpatient (CLI) | payer MEDICARE, SELFPAY ==
--- NOTE | 2020-03-06 13:45 | W.HOLTRPT ---
Date of service: 03/06/20 Time of Service: 13:45 Holter Monitor Report Holter Monitor Note: There is a 48-hour Holter monitor ordered for the indication of dyspnea. ?The patient was in normal sinus rhythm for the majority of the recording. Mean heart rate was 93 bpm. ?There were 0 episodes of supraventricular tachycardia and rare (0.2%) premature atrial contractions. ?There were 2 episodes of NSVT with the longest lasting 4 beats. ?There were occasional PVCs (5.6%) ?There were no episodes of atrial fibrillation, no pauses grade 3 seconds and no evidence of high degree heart block.
== END ==
PROVIDERS: PCP Emergency Medicine; Visit Provider Emergency Medicine
DX: I47.2 Ventricular tachycardia (principal); R06.09 Other forms of dyspnea
CPT/HCPCS: 93227; 93226

== ENCOUNTER 2020-04-03 02:38 | Outpatient (CLI) | payer MEDICARE, SELFPAY ==
--- NOTE | 2020-04-03 14:00 | NS.NUTBLAN_ITS ---
60 year old male referred to me for Medical Nutrition Therapy for weight loss counseling with BMI of 52. Bean reports that his weight was 190 lbs when he finished high school and rapidly began to increase after he stopped smoking, and after divorce & both parents dying. . He was admitted to [facility] earlier this year with SOB and chest pain. He was r/o for DE. Meds include aspirin and losartan. 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 He reports no frequent stooling during evening after his dinner. 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 He does not eat breakfast or lunch and has a large dinner at night such as fried chicken and sweet potatoes. Educated Bean on importance of discussing bowel issues with PCP as he may need tests to r/o disease. I do think, however, that bowel frequency during day and not during evening after heavy meal points towards origin of loose bowels as anxiety/stress. I educated him on how to follow 1500 calorie lower carb, higher protein diet with 3 meals daily. Diet plan provided. He is agreeable to start trying to eat more often and walk daily for 20 minutes. Reviewed risks of obesity as he ages and discussed weight loss surgery as back up plan if unable to get to 250 lbs in next 6 months. Goal is for 10 lbs weight loss every 4 weeks. Wt today with boots was 321 lbs. Plan: follow up visit TBA- he will call back Bean will follow 1500 kcal meal plan with upto 100 g carbohydrate daily, at least 80-100 g protein and focus on non starchy vegetables, he will also walk continuously for 20 minutes daily to help raise metabolic rage. Bean will talk to MD about his bowel concerns
== END 2020-04-03 02:58 ==
PROVIDERS: PCP Emergency Medicine; Visit Provider Dietitian, Registered
DX: E66.8 Other obesity (principal); Z71.3 Dietary counseling and surveillance
CPT/HCPCS: 97802

== ENCOUNTER → 2020-04-20 14:14 | Outpatient (BNVA) | payer MEDICARE, SELFPAY | PROVIDERS: PCP Emergency Medicine; Referring Provider Emergency Medicine; Visit Provider Internal Medicine Cardiovascular Disease | DX: R06.00 Dyspnea, unspecified (principal); I49.3 Ventricular premature depolarization; R53.83 Other fatigue; I10 Essential (primary) hypertension; E66.9 Obesity, unspecified | CPT/HCPCS: 99213 ==

== ENCOUNTER → 2020-11-02 13:38 | Outpatient (BNVA) | payer MEDICARE, SELFPAY | PROVIDERS: PCP Emergency Medicine; Referring Provider Emergency Medicine; Visit Provider Internal Medicine Cardiovascular Disease | DX: I49.3 Ventricular premature depolarization (principal); E66.01 Morbid (severe) obesity due to excess calories; R06.00 Dyspnea, unspecified; I10 Essential (primary) hypertension; R53.83 Other fatigue | CPT/HCPCS: 99214 ==

== ENCOUNTER → 2021-06-25 11:33 | Outpatient (BNVA) | payer MEDICARE, SELFPAY | PROVIDERS: PCP Emergency Medicine; Referring Provider Emergency Medicine; Visit Provider Internal Medicine Cardiovascular Disease | DX: I49.3 Ventricular premature depolarization (principal); I10 Essential (primary) hypertension; R06.00 Dyspnea, unspecified; E66.01 Morbid (severe) obesity due to excess calories | CPT/HCPCS: 99214; 99213 ==

== ENCOUNTER 2021-12-19 00:35 | Outpatient (CLI) | payer MEDICARE, SELFPAY ==
--- NOTE | 2021-12-19 10:30 | DI.US_ITS ---
APPROVED REPORT EXAM: Comprehensive 2D, Doppler, and color-flow Echocardiogram Patient Location: Out-Patient [employer] Technician: Carmella Dominguez RDCS (AE) Indications: PVC, HTN, Ventricular ectopy, Dyspnea Other Information Study Quality: Fair. Technically limited study due to body habitus. Conclusion Normal left ventricular chamber size. There is mild to moderate concentric left ventricular hypertro phy. Left ventricular systolic function is borderline with an EF of 50 to 55%. There are no segment al wall motion abnormalities Normal right ventricular size and systolic function Both atria are normal in size Mildly sclerotic trileaflet aortic valve without stenosis or regurgitation Normal mitral valve with trace regurgitation Normal tricuspid valve with trace regurgitation. Estimated right ventricular systolic pressure is 29 mmHg Wall motion Left Ventricle The left ventricle is normal size. Left ventricular systolic function is borderline. Mild to moderate concentric left ventricular hypertrophy. No segmental wall motion abnormalities There is no ventricu lar septal defect visualized. LVEF is 50-55%. Right Ventricle Right ventricle is grossly normal in size. Right ventricular systolic function is grossly normal. The RVSP is 28.9 mmHg. Atria The left atrium size is normal. The right atrium size is normal. The interatrial septum is intact wit h no evidence for an atrial septal defect. Aortic Valve Mildly sclerotic aortic valve Aortic valve is trileaflet. There is no aortic valvular stenosis. No ao rtic regurgitation is present. Mitral Valve The mitral valve is normal in structure. No evidence of mitral valve stenosis. Trace mitral regurgita tion. Tricuspid Valve The tricuspid valve is normal in structure. There is no tricuspid valve stenosis. Trace tricuspid reg urgitation. Pulmonic Valve The pulmonary valve is normal in structure. There is no pulmonic valvular stenosis. Trace pulmonic re gurgitation. Great Vessels The aortic root is normal in size. The ascending aorta is normal in size. Ascending aorta is not well visualized. IVC is normal in size and collapses >50% with inspiration. Pericardium There is no pericardial effusion. 2D Dimensions IVSD d PLAX 1.24 cm M: 0.6-1.2 LV Vol A2C d MOD 192.4 mL LVPW d PLAX 1.27 cm M: 0.6 - 1.2 LV Vol A4C d MOD 187.8 mL LVID d PLAX 4.88 cm M: 4.2 - 5.8 LA vol/ BSA A4C s A-L 33.6 mL/m2 LVDs 3.70 cm M: 2.5 - 4.0 LA Area A4C s MOD 23.60 cm2 Ao Root d 2.79 cm M: 3.1 - 3.7 LV EF A4C MOD 48.6 % RA Area A4C 16.47 cm2 LV EF A2C MOD 47.0 % RA Vol/ BSA A4C s A-L 18.7 mL/m2 LV EF Biplane MOD 46.6 % Ao Asc Diam d 3.09 cm M: 2.6 - 3.4 SV 89.12 mL LV EF Teichholz 46.5 % SV Index 37.64 mL/m2 LVEF (Lainez's) 46.63 % M: 52 - 72 LV Volume 135.93 mL M: 62 - 150 LV Volume Index 57.35 mL/m2 M: 34 - 74 LV Vol Biplane MOD 191.1 mL FS 23.25 % M-Mode TAPSE 3.05 cm (M/F) >1.7 LV Diastology MV E' medial 0.068 (>0.07 m/s) E/A Ratio 0.9 LV E/e MED 11.25 (<14) MV E Vmax 0.77 (0.4-1.3 m/s) MV E' lateral 0.131 (>0.1 m/s) MV A Vmax 0.90 (0.4-1.3 m/s) LV E/e LAT 5.90 (<14) MV E/A Ratio 0.82 MV E/E' medial 11.29 MV E/E' lateral 5.91 Aortic Valve LVOT Area 3.73 cm2 AoV Area Vmax 3.00 cm2 LVOT Vmax 1.06 m/s AoV Area/ BSA (Vmax) 1.27 cm2/m2 LVOT Mean Jason. 0.67 m/s CHAU Mean Jason. 2.59 cm2 LVOT Peak Grad 4.5 mmHg CHAU Mean Jason. Index 1.10 cm2/m2 LVOT Mean Grad 2.2 mmHg LVOT VTI 0.210 m LVOT Diam s 2.15 cm AoV Vmax 1.32 m/s Velocity Ratio 0.80 AoV Mean Jason. 0.96 m/s AoV Peak Grad 6.9 mmHg LVOT SV 78.33 mL AoV Mean Grad 4.1 mmHg AoV VTI 0.253 m AoV Area VTI 3.10 cm2 AoV Area/ BSA (VTI) 1.31 cm/m2 Mitral Valve MV DT 263 (160-240 msec) MV PHT 76 msec MV Area PHT 2.89 cm2 MV VTI 0.270 m MV Area VTI 2.91 (4.0-6.0 cm2) Pulmonary Valve PV Vmax 1.27 (0.5-1.5 m/s) RVOT Peak Gr. 3.30 mmHg PV Peak Grad 6.5 mmHg RVOT Mean Gr. 1.45 mmHg PV Mean Grad 3.1 mmHg RVOT VTI 0.171 m PV VTI 0.202 m RVOT Vmax 0.91 m/s Tricuspid Valve TR Peak Grad 25.8 mmHg TR Vmax 2.54 m/s RA Pressure 3.00 mmHg RVSP (TR) 28.9 mmHg
== END 2021-12-19 00:55 ==
LOC: DI 00:35
PROVIDERS: PCP Family Medicine; Visit Provider Internal Medicine Cardiovascular Disease
DX: I10 Essential (primary) hypertension (principal); I49.3 Ventricular premature depolarization; R06.00 Dyspnea, unspecified
CPT/HCPCS: 93306

== ENCOUNTER → 2021-12-24 11:20 | Outpatient (BNVA) | payer MEDICARE, SELFPAY | PROVIDERS: PCP Family Medicine; Visit Provider Internal Medicine Cardiovascular Disease | DX: I49.3 Ventricular premature depolarization (principal); I10 Essential (primary) hypertension; E66.01 Morbid (severe) obesity due to excess calories | CPT/HCPCS: 99214; 99213 ==

== ENCOUNTER → 2022-08-08 13:36 | Outpatient (BNVA) | payer MEDICARE, SELFPAY | PROVIDERS: PCP Nurse Practitioner Family; Referring Provider Nurse Practitioner Family; Visit Provider Nurse Practitioner Adult Health | DX: G56.01 Carpal tunnel syndrome, right upper limb (principal) | CPT/HCPCS: 95908; 99203; 99214 ==

== ENCOUNTER → 2022-09-13 07:47 | Outpatient (BNVA) | payer MEDICARE, SELFPAY | PROVIDERS: PCP Nurse Practitioner Family; Referring Provider Nurse Practitioner Family; Visit Provider Student in an Organized Health Care Education/Training Program | DX: G56.01 Carpal tunnel syndrome, right upper limb (principal) | CPT/HCPCS: 99213 ==

== ENCOUNTER 2022-09-24 10:23 | Day surgery (SDC) | payer MEDICARE, SELFPAY ==
--- NOTE | 2022-09-24 08:02 | W.PM.DSUDISC ---
Date of service: 09/24/22 Time of Service: 11:41 Discharge Plan Disposition Patient Disposition: Home Condition: Good Discharge Details Reason For Visit: Right carpal tunnel syndrome Attending Provider: Mariano Bhakta Primary Care Provider: Aubrey Walker Home Meds and New Rx's Prescriptions: New acetaminophen 500 mg tablet 500 mg PO Q6H PRN (Reason: pain) Qty: 60 2RF hydrocodone-acetaminophen 5-325 mg tablet 1 tab PO Q6H PRN (Reason: severe pain) Qty: 3 0RF Rx Instructions: Take one tablet up to every 6 hours as needed for severe postoperative pain Continued aspirin 81 mg tablet,delayed release (DR/EC) 81 mg PO DAILY amlodipine 5 mg tablet 5 mg PO DAILY Qty: 90 3RF losartan 100 mg tablet 100 mg PO DAILY Qty: 90 3RF gabapentin 300 mg capsule 300 mg PO DAILY Qty: 30 0RF (DME) Aerochamber Plus Flow-Vu,S Msk 1 EACH spacer 1 ea Miscellaneous QID Rx Instructions: WITH LARGE MASK Discharge Instructions Stand Alone Forms: Yony Rockwell Tunnel Release Referrals: Mariano Bhakta MD [ [facility] STAFF PHYSICIAN] - Activity:: Elevate Remove Dressings/Wound Care:: 48 hours Shower/Bathe:: 48 hours Diet:: As Tolerated Discharge Orders Discharge Orders: Discharge Order (Routine); Ordered 09/24/22 Ordered By: Юлия More DS: Diagnosis Discharge Diagnosis (1) Right carpal tunnel syndrome: Status: Acute
[2022-09-24] MEDS: Lactated Ringers 1,000 ML 80 ML IV (10:56)
--- NOTE | 2022-09-24 11:42 | W.ANESPRE ---
General Info Date of Service Date Performed: 09/24/22 Height: 5 ft 6.5 in Weight: 139.706 kg Body Mass Index (BMI): 48.9 Surgical Procedure: Operation Date: 09/24/22 14:10 Proposed Procedure Side Surgeon p Wrist ECTR Right Mariano Bhakta MD Actual Procedure Side Surgeon p Wrist ECTR Right Mariano Bhakta MD Pre-Op Diagnosis Post-Op Diagnosis Right carpal tunnel syndrome Meds Allergies and Home Medications Allergies Allergy/AdvReac Type Severity Reaction Status Date / Time Penicillins Allergy Unknown Verified 09/24/22 10:33 lisinopril AdvReac Intermediate JOINT PAIN Verified 09/24/22 10:33 metoprolol AdvReac Intermediate Fatigue Verified 09/24/22 10:33 Home Medication Medication Instructions Recorded inhalational spacing device 01/11/13 (Aerochamber Plus Flow-Vu,Small Mask) aspirin 81 mg tablet,delayed 81 mg PO DAILY 11/29/19 release amlodipine 5 mg tablet 5 mg PO DAILY #90 tabs 06/04/22 gabapentin 300 mg capsule 300 mg PO DAILY #30 caps 06/04/22 losartan 100 mg tablet 100 mg PO DAILY #90 tabs 06/04/22 acetaminophen 500 mg tablet 500 mg PO Q6H PRN pain #60 tabs 09/24/22 hydrocodone 5 mg-acetaminophen 325 1 tab PO Q6H PRN severe pain #3 09/24/22 mg tablet tabs Current Visit Medications: Current Medications Generic Name Dose Route Start Last Admin Trade Name Freq PRN Reason Stop Dose Admin Acetaminophen 650 mg 09/24/22 08:01 Acetaminophen 325 Mg Tab PO Q4H PRN PRN Hydrocodone Bitart/Acetaminophen 0 tab 09/24/22 08:01 Hydrocodone 5/Acetaminophen 325 Tab PO Q3H PRN PRN Pain Ringer's Solution 1,000 mls @ 80 mls/hr 09/24/22 06:00 09/24/22 10:56 IV 10/21/22 23:59 80 mls/hr INFUSION HUNTER Administration Cefazolin Sodium 3,000 mg/ 100 mls @ 200 mls/hr 09/24/22 06:00 Sodium Chloride IVPB 09/24/22 18:00 PREOP HUNTER IV Miscellaneous Supplies 1 each 09/24/22 06:00 Iv Access IV 10/21/22 23:59 DIRECTED HUNTER Sodium Chloride 0 ml 09/24/22 06:00 Normal Saline Flush 10 Ml Syr IV 10/21/22 23:59 PRN PRN Sodium Chloride 0 ml 09/24/22 06:00 Normal Saline 10 Ml Vial IJ 10/21/22 23:59 DIRECTED PRN Sterile Water 0 ml 09/24/22 06:00 Water,Injection,Sterile 10 Ml Vial IJ 10/21/22 23:59 DIRECTED PRN PFSH Active Problems Active Problems: Problem Status Onset Code Right carpal tunnel syndrome G56.01 History of back surgery Z98.890 Numbness of right hand R20.0 Morbid obesity E66.01 MAX (dyspnea on exertion) R06.00 Ventricular ectopy I49.3 HTN (hypertension) I10 Surgical History Surgical History Failed back surgical syndrome Tobacco Smoking/Tobacco Use Status: Former Tobacco Use Alcohol Alcohol Intake: current Alcohol intake frequency: a few times a month Substance Use Substance use: Never Substance use type: does not use Details: quit smoking many years ago Vital Signs and Lab Results Lab Results Blood Type / Crossmatch: No Data to Display Complete Blood Count: No Data to Display Complete Metabolic Panel: No Data to Display Liver Function Panel: No Data to Display Coagulation Panel: No Data to Display Cardiac Panel: No Data to Display Arterial Blood Gas: No Data to Display Venous Blood Gas: No Data to Display Pancreas Panel: No Data to Display Thyroid Panel: No Data to Display Infectious Disease: No Data to Display Blood Cultures: No Data to Display Toxicology Panel: No Data to Display Anesthesia Assessment and Plan Anesthesia History Personal History: No History of Anesthesia Complications Family History: No Family History of Anesthesia Complications Exercise Tolerance Exercise Tolerance: Metabolic Equivalents>4 Pertinent Negatives Pertinent Negatives: No Symptoms of GERD, No Major Pulmonary Symptoms or Complaints (Quit smoking cigarettes in ) and No History of CVA/TIA Cardiac & Pulmonary Exam Cardiac Exam: Normal S1/S2 Heart Sounds Pulmonary Exam: Clear Bilateral Breath Sounds Implantable Cardiac Device Does patient have a Pacemaker or an ICD?: No Airway Exam Known Difficult Airway: No Mallampati Class: 2 Mouth Opening: Normal (> 3cm) Thyromental Distance: Greater than 3 cm Facial Hair: Full Burns Neck Range of Motion: Full ROM Neck Circumference: Thick Teeth Condition: Generalized Poor Dentition (Top front right loose, remaning teeth very fragile) ASA Classification ASA Score: ASA 3 Emergency Case?: No NPO Status NPO Status: NPO Clears >2 hours, Solids >8 hours Anesthesia Plan Resuscitation Status: Full Code Anesthesia Technique: General Anesthesia Airway Planned: Natural Airway Monitors Used: Standard Monitors Preoperative Comments:: See Cardiology note from 11/2021
[2022-09-24 11:50] VITALS: BMI 48.9
[2022-09-24] MEDS: ceFAZolin 3,000 MG in Normal Saline 100 ML 200 MG IVPB (12:07)
[2022-09-24] MEDS: Lidocaine 1% Pres-Free W/EPI 1/200,000 10 ML VIAL (12:19)
--- NOTE | 2022-09-24 12:29 | W.ANESPOSTOP ---
Postoperative Evaluation Date, Time and Location Date Performed: 09/24/22 Time Performed: 12:29 Patient Location: Day Surgery Unit Vital Signs Most Recent Manually Entered Vital Signs: Adult Blood Pressure: 102/79 Heart Rate: 95 Respirations: 12 Oxygen Saturation (%): 96 Temperature (C): 36.3 C Pain Score (0-10 Scale): 0 Assessment Mental Status: Awake (Alert & Oriented to Patient Baseline) Airway and Respiratory Function: Patent airway with normal (patient baseline) respiratory exam Cardiovascular Function: Hemodynamically Stable Hydration Status: Adequately Hydrated Nausea & Vomiting: No Nausea or Vomiting Pain: Pt. Denies Any Pain Peripheral Nerve Block: Patient did not receive a nerve block
[2022-09-24 12:30] VITALS: BP 102/79; PULSE 95; RESP 12; TEMPC 36.3; O2SAT 96
[2022-09-24 12:50] VITALS: BP 102/79; PULSE 89; RESP 16; TEMP 36.6; O2SAT 95
[2022-09-24 13:00] VITALS: BP 134/68; PULSE 82; RESP 16; TEMP 36.5; O2SAT 96
--- NOTE | 2022-09-24 14:25 | W.PM.OP ---
Date of service: 09/24/22 Time of Service: 12:20 Operative Note Operative Note DATE OF PROCEDURE: 09/24/22 PRE-OP DIAGNOSIS: Right Carpal Tunnel Syndrome POST-OP DIAGNOSIS: same PROCEDURE: Right Endoscopic Carpal Tunnel Release SURGEON: Mariano Bhakta ANESTHESIA TYPE: General:No Airway Refer to Anesthesia Record ESTIMATED BLOOD LOSS: 0 PATHOLOGY: none sent TOURNIQUET TIME: 4 COMPLICATIONS: None Patient was transported to: same day Patient's condition: stable Indications: I have seen Jose Ramon in clinic for symptoms of carpal tunnel syndrome. The numbness, tingling, and pain limited function. Clinical exam findings with nerve conduction tests confirmed the diagnosis of carpal tunnel syndrome. Nonoperative measures such as bracing, time, activity modifications had been tried but disability and pain persisted. I discussed carpal tunnel release with the patient. I reviewed the risks of the procedure to include, but not limited to, bleeding, infection, pain, stiffness, incomplete release, damage to nerves or vessels, persistent numbness, recurrence. Despite these risks, the patient elected to proceed. Findings: There was tightened carpal tunnel. This was dilated and released successfully with the endoscopic with increased space within the tunnel. The antebrachial fascia was released proximally freeing the median nerve at the wrist. Procedure Description: Jose Ramon was greeted in the preoperative holding area where the correct side was identified and marked. The consent was reviewed with the patient and signed. The history and physical was updated. All questions were answered. He was taken back to the operating room. The patient was placed into the supine position on the operating room table with the right arm on an arm board. A nonsterile tourniquet was placed high onto the arm. All bony prominences were well padded. Prophylactic antibiotics in the form of Cefazolin were administered. The right arm was then prepped with Chloraprep and draped in a standard fashion with stockinette and extremity drape. A timeout to confirm correct identity, side and site, procedure, allergies, anesthesia, and medical concerns was performed. The surgical site was marked in the volar wrist creases in line with the radial border of the fourth ray. This area was anesthetized with approximately 6cc of 1% Lidocaine. The limb was then exsanguinated with an Esmarch. The skin was incised with a 15 blade, approximately 1cm. The skin only was cut and the deeper tissue was dissected bluntly with a tenotomy scissor, avoiding passing nerve and venous structures. The fascia was penetrated and opened bluntly. A two-prong skin hook was placed under this proximal fascial edge. A series of hamate finders were used to identify and dilate the carpal tunnel. Synovial elevator was used to free synovial attachments to the underside of the transverse carpal ligament. My thumb was kept in the palm to meagan the distal extent of the carpal tunnel and correctly position the hand. The Microaire endoscope was inserted without difficulty and without resistance. Excellent visualization showed horizontally running fibers of the transverse carpal ligament (TCL). The distal extent of the TCL was visualized and the end of the scope palpated with the thumb. The blade was elevated and withdrawn from distal to proximal. The TCL was split into two flaps. The endoscope was reinserted to confirm complete release and any remnant ligament was incised. The scope was withdrawn and the proximal aspect of the carpal tunnel was grossly inspected and appeared release with the median nerve visible. The antebrachial fascia at the level of the wrist was then freed from the overlying skin and then the underlying median nerve with blunt dissection. This was transected longitudinally for about 3cm proximal to the wrist incision. The wound was then irrigated with easy flow of irrigant distally and proximally. The incision was closed with a single 4-0 Nylon suture. The wound was dressed with Xeroform, Gauze, Kerlix and Jcarlos. The tourniquet was deflated with the initial dressing and held with some pressure. Blood flow returned easily to all digits with capillary refill less than 2 seconds. The patient tolerated the procedure well and was returned to the Same Day Surgery area in a stable condition suffering no known complication.
== END 2022-09-24 13:15 | disposition home or self-care (01) ==
PROVIDERS: PCP Nurse Practitioner Family; Visit Provider Student in an Organized Health Care Education/Training Program
PROC: 01N54ZZ Release Median Nerve, Percutaneous Endoscopic Approach (ICD-10-PCS; CPT 29848; principal; 2022-09-24 14:00)
DX: G56.01 Carpal tunnel syndrome, right upper limb (principal); I10 Essential (primary) hypertension; E66.01 Morbid (severe) obesity due to excess calories; Z68.42 Body mass index [BMI] 45.0-49.9, adult
CPT/HCPCS: 29848; J0690; J1885; J2250; J2405; J2704

== ENCOUNTER → 2022-10-04 10:56 | Outpatient (BNVA) | payer MEDICARE, SELFPAY | PROVIDERS: PCP Nurse Practitioner Family; Referring Provider Nurse Practitioner Family; Visit Provider Student in an Organized Health Care Education/Training Program | DX: Z47.89 Encounter for other orthopedic aftercare (principal); G56.01 Carpal tunnel syndrome, right upper limb; G56.02 Carpal tunnel syndrome, left upper limb ==

== ENCOUNTER 2022-10-08 06:18 | Day surgery (SDC) | payer MEDICARE, SELFPAY ==
[2022-10-08 06:45] VITALS: BP 146/91; PULSE 94; RESP 18; TEMP 36.6; O2SAT 97
--- NOTE | 2022-10-08 06:54 | W.ANESPRE ---
General Info Date of Service Date Performed: 10/08/22 Height: 5 ft 6.5 in Weight: 139.5 kg Body Mass Index (BMI): 48.9 Surgical Procedure: Operation Date: 10/08/22 07:40 Proposed Procedure Side Surgeon p Wrist ECTR Left Mariano Bhakta MD Meds Allergies and Home Medications Allergies Allergy/AdvReac Type Severity Reaction Status Date / Time Penicillins Allergy Unknown Verified 10/08/22 06:39 lisinopril AdvReac Intermediate JOINT PAIN Verified 10/08/22 06:39 metoprolol AdvReac Intermediate Fatigue Verified 10/08/22 06:39 Home Medication Medication Instructions Recorded inhalational spacing device 01/11/13 (Aerochamber Plus Flow-Vu,Small Mask) aspirin 81 mg tablet,delayed 81 mg PO DAILY 11/29/19 release amlodipine 5 mg tablet 5 mg PO DAILY #90 tabs 06/04/22 gabapentin 300 mg capsule 300 mg PO DAILY #30 caps 06/04/22 losartan 100 mg tablet 100 mg PO DAILY #90 tabs 06/04/22 acetaminophen 500 mg tablet 500 mg PO Q6H PRN pain #60 tabs 09/24/22 cephalexin 500 mg tablet 500 mg PO TID #9 tabs 10/04/22 Current Visit Medications: Current Medications Generic Name Dose Route Start Last Admin Trade Name Freq PRN Reason Stop Dose Admin Ringer's Solution 1,000 mls @ 80 mls/hr 10/08/22 06:00 IV 11/06/22 23:59 INFUSION HUNTER Cefazolin Sodium 3,000 mg/ 100 mls @ 200 mls/hr 10/08/22 06:00 Sodium Chloride IVPB 10/08/22 16:00 PREOP HUNTER IV Miscellaneous Supplies 1 each 10/08/22 06:00 Iv Access IV 11/06/22 23:59 DIRECTED HUNTER Sodium Chloride 0 ml 10/08/22 06:00 Normal Saline Flush 10 Ml Syr IV 11/06/22 23:59 PRN PRN Sodium Chloride 0 ml 10/08/22 06:00 Normal Saline 10 Ml Vial IJ 11/06/22 23:59 DIRECTED PRN Sterile Water 0 ml 10/08/22 06:00 Water,Injection,Sterile 10 Ml Vial IJ 11/06/22 23:59 DIRECTED PRN PFSH Active Problems Active Problems: Problem Status Onset Code HTN (hypertension) I10 Ventricular ectopy I49.3 MAX (dyspnea on exertion) R06.00 Morbid obesity E66.01 Numbness of right hand R20.0 History of back surgery Z98.890 Right carpal tunnel syndrome G56.01 Left carpal tunnel syndrome G56.02 Surgical History Surgical History (Updated 10/08/22 @ 06:39 by Mya Mcintyre RN) Failed back surgical syndrome History of carpal tunnel release Tobacco Smoking/Tobacco Use Status: Former Tobacco Use Alcohol Alcohol Intake: current Alcohol intake frequency: a few times a month Substance Use Substance use: Never Substance use type: does not use Details: quit smoking many years ago Vital Signs and Lab Results Vital Signs Most Recent Vital Signs in EMR: Most Recent Vital Signs Temp Pulse Resp BP Pulse Ox 36.6 C 94 H 18 146/91 H 97 10/08/22 06:45 10/08/22 06:45 10/08/22 06:45 10/08/22 06:45 10/08/22 06:45 Lab Results Blood Type / Crossmatch: No Data to Display Complete Blood Count: No Data to Display Complete Metabolic Panel: No Data to Display Liver Function Panel: No Data to Display Coagulation Panel: No Data to Display Cardiac Panel: No Data to Display Arterial Blood Gas: No Data to Display Venous Blood Gas: No Data to Display Pancreas Panel: No Data to Display Thyroid Panel: No Data to Display Infectious Disease: No Data to Display Blood Cultures: No Data to Display Toxicology Panel: No Data to Display Anesthesia Assessment and Plan Anesthesia History Personal History: No History of Anesthesia Complications Family History: No Family History of Anesthesia Complications Exercise Tolerance Exercise Tolerance: Metabolic Equivalents>4 Pertinent Negatives Pertinent Negatives: No Symptoms of GERD Cardiac & Pulmonary Exam Cardiac Exam: Normal S1/S2 Heart Sounds Pulmonary Exam: Clear Bilateral Breath Sounds Implantable Cardiac Device Does patient have a Pacemaker or an ICD?: No Airway Exam Known Difficult Airway: No Mallampati Class: 3 Mouth Opening: Normal (> 3cm) Thyromental Distance: Greater than 3 cm Facial Hair: Full Burns Neck Range of Motion: Full ROM Neck Circumference: Thick Teeth Condition: Generalized Poor Dentition (Top front right loose, remaning teeth very fragile) ASA Classification ASA Score: ASA 3 Emergency Case?: No NPO Status NPO Status: NPO Clears >2 hours, Solids >8 hours Anesthesia Plan Resuscitation Status: Full Code Anesthesia Technique: General Anesthesia Airway Planned: Natural Airway Monitors Used: Standard Monitors
[2022-10-08 06:56] VITALS: BMI 48.9
[2022-10-08] MEDS: Lactated Ringers 1,000 ML 80 ML IV (07:15)
--- NOTE | 2022-10-08 07:22 | W.PM.DSUDISC ---
Date of service: 10/08/22 Time of Service: 07:36 Discharge Plan Disposition Patient Disposition: Home Condition: Good Discharge Details Reason For Visit: Left Carpal Tunnel Attending Provider: Mariano Bhakta Primary Care Provider: Aubrey Walker Home Meds and New Rx's Prescriptions: Continued aspirin 81 mg tablet,delayed release (DR/EC) 81 mg PO DAILY amlodipine 5 mg tablet 5 mg PO DAILY Qty: 90 3RF losartan 100 mg tablet 100 mg PO DAILY Qty: 90 3RF gabapentin 300 mg capsule 300 mg PO DAILY Qty: 30 0RF cephalexin 500 mg tablet 500 mg PO TID Qty: 9 0RF (DME) Aerochamber Plus Flow-Vu,S Msk 1 EACH spacer 1 ea Miscellaneous QID Rx Instructions: WITH LARGE MASK acetaminophen 500 mg tablet 500 mg PO Q6H PRN (Reason: pain) Qty: 60 2RF Discharge Instructions Stand Alone Forms: Yony Rockwell Tunnel Release Activity:: Elevate Remove Dressings/Wound Care:: 48 hours Shower/Bathe:: 48 hours Discharge Orders Discharge Orders: Discharge Order (Routine); Ordered 10/08/22 Ordered By: Mariano Bhakta
[2022-10-08] MEDS: ceFAZolin 3,000 MG in Normal Saline 100 ML 200 MG IVPB (07:23)
[2022-10-08] MEDS: Lidocaine 1% Pres-Free W/EPI 1/200,000 10 ML VIAL (07:39)
[2022-10-08 07:52] VITALS: BP 123/72; PULSE 70; RESP 16; TEMP 36.2; O2SAT 95
--- NOTE | 2022-10-08 07:56 | W.ANESPOSTOP ---
Postoperative Evaluation Date, Time and Location Date Performed: 10/08/22 Time Performed: 07:57 Patient Location: Day Surgery Unit Vital Signs Most Recent Imported Vital Signs: Most Recent Vital Signs Temp Pulse Resp BP Pulse Ox 36.2 C L 70 16 123/72 95 10/08/22 07:52 10/08/22 07:52 10/08/22 07:52 10/08/22 07:52 10/08/22 07:52 Pain Score Most Recent Pain Score: Most Recent Pain Score Pain Level 0 10/08/22 07:52 Assessment Mental Status: Awake (Alert & Oriented to Patient Baseline) Airway and Respiratory Function: Patent airway with normal (patient baseline) respiratory exam Cardiovascular Function: Hemodynamically Stable Hydration Status: Adequately Hydrated Nausea & Vomiting: No Nausea or Vomiting Pain: Pt. Denies Any Pain Peripheral Nerve Block: Patient did not receive a nerve block
[2022-10-08 08:19] VITALS: BP 141/79; PULSE 81; RESP 16; TEMP 36.4; O2SAT 96
--- NOTE | 2022-10-08 09:24 | W.PM.OP ---
Date of service: 10/08/22 Time of Service: 07:40 Operative Note Operative Note DATE OF PROCEDURE: 10/08/22 PRE-OP DIAGNOSIS: Left Carpal Tunnel Syndrome POST-OP DIAGNOSIS: same PROCEDURE: Left Endoscopic Carpal Tunnel Release SURGEON: Mariano Bhakta ANESTHESIA TYPE: General:No Airway Refer to Anesthesia Record ESTIMATED BLOOD LOSS: 0 PATHOLOGY: none sent TOURNIQUET TIME: 4 COMPLICATIONS: None Patient was transported to: same day Patient's condition: stable Indications: I have seen Jose Ramon in clinic for symptoms of carpal tunnel syndrome. The numbness, tingling, and pain limited function. Clinical exam findings with nerve conduction tests confirmed the diagnosis of carpal tunnel syndrome. Nonoperative measures such as bracing, time, activity modifications had been tried but disability and pain persisted. He had a successful carpal tunnel release on the right side. I discussed carpal tunnel release with the patient. I reviewed the risks of the procedure to include, but not limited to, bleeding, infection, pain, stiffness, incomplete release, damage to nerves or vessels, persistent numbness, recurrence. Despite these risks, the patient elected to proceed. Findings: There was tightened carpal tunnel. This was dilated and released successfully with the endoscopic with increased space within the tunnel. The antebrachial fascia was released proximally freeing the median nerve at the wrist. Procedure Description: Jose Ramon was greeted in the preoperative holding area where the correct side was identified and marked. The consent was reviewed with the patient and signed. The history and physical was updated. All questions were answered. Jose Ramon was taken back to the operating room. The patient was placed into the supine position on the operating room table with the left arm on an arm board. A nonsterile tourniquet was placed high onto the arm. All bony prominences were well padded. Prophylactic antibiotics in the form of Cefazolin were administered. The left arm was then prepped with Chloraprep and draped in a standard fashion with stockinette and extremity drape. A timeout to confirm correct identity, side and site, procedure, allergies, anesthesia, and medical concerns was performed. The surgical site was marked in the volar wrist creases in line with the radial border of the fourth ray. This area was anesthetized with approximately 6cc of 1% Lidocaine. The limb was then exsanguinated with an Esmarch. The skin was incised with a 15 blade, approximately 1cm. The skin only was cut and the deeper tissue was dissected bluntly with a tenotomy scissor, avoiding passing nerve and venous structures. The fascia was penetrated and opened bluntly. A two-prong skin hook was placed under this proximal fascial edge. A series of hamate finders were used to identify and dilate the carpal tunnel. Synovial elevator was used to free synovial attachments to the underside of the transverse carpal ligament. My thumb was kept in the palm to meagan the distal extent of the carpal tunnel and correctly position the hand. The Microaire endoscope was inserted without difficulty and without resistance. Excellent visualization showed horizontally running fibers of the transverse carpal ligament (TCL). The distal extent of the TCL was visualized and the end of the scope palpated with the thumb. The blade was elevated and withdrawn from distal to proximal. The TCL was split into two flaps. The endoscope was reinserted to confirm complete release and any remnant ligament was incised. The scope was withdrawn and the proximal aspect of the carpal tunnel was grossly inspected and appeared release with the median nerve visible. The antebrachial fascia at the level of the wrist was then freed from the overlying skin and then the underlying median nerve with blunt dissection. This was transected longitudinally for about 3cm proximal to the wrist incision. The wound was then irrigated with easy flow of irrigant distally and proximally. The incision was closed with a single 4-0 Nylon suture. The wound was dressed with Xeroform, Gauze, Kerlix and Jcarlos. The tourniquet was deflated with the initial dressing and held with some pressure. Blood flow returned easily to all digits with capillary refill less than 2 seconds. The patient tolerated the procedure well and was returned to the Same Day Surgery area in a stable condition suffering no known complication.
== END 2022-10-08 08:35 | disposition home or self-care (01) ==
PROVIDERS: PCP Nurse Practitioner Family; Visit Provider Student in an Organized Health Care Education/Training Program
PROC: 01N54ZZ Release Median Nerve, Percutaneous Endoscopic Approach (ICD-10-PCS; CPT 29848; principal; 2022-10-08 07:30)
DX: G56.02 Carpal tunnel syndrome, left upper limb (principal)
CPT/HCPCS: 29848; J0690; J2704

== ENCOUNTER → 2022-10-17 09:21 | Outpatient (BNVA) | payer MEDICARE, SELFPAY | PROVIDERS: PCP Nurse Practitioner Family; Referring Provider Nurse Practitioner Family; Visit Provider Physician Assistant | DX: Z47.89 Encounter for other orthopedic aftercare (principal) ==

== ENCOUNTER 2022-11-11 09:02 | Outpatient (CLI) | payer MEDICARE, SELFPAY | END 2022-11-11 09:03 | disposition home or self-care (01) | LOC: DI.CARD 09:03 | PROVIDERS: PCP Nurse Practitioner Family; Visit Provider Internal Medicine Cardiovascular Disease | CPT/HCPCS: 93010 ==

== ENCOUNTER → 2022-11-14 09:28 | Outpatient (BNVA) | payer MEDICARE, SELFPAY | PROVIDERS: PCP Nurse Practitioner Family; Referring Provider Nurse Practitioner Family; Visit Provider Student in an Organized Health Care Education/Training Program | DX: R20.0 Anesthesia of skin (principal); Z47.89 Encounter for other orthopedic aftercare; R20.2 Paresthesia of skin ==

== ENCOUNTER 2023-08-12 01:14 | Outpatient (CLI) | payer MEDICARE, SELFPAY ==
[2023-08-12 12:31] LABS: Anion Gap 9.5 mmol/L (3-11); BUN 23 mg/dL (7-18); CO2 25.5 mmol/L (21.0-32.0); CREATININE 1.1 mg/dL (0.70-1.30); Calcium 9.2 mg/dL (8.5-10.1); Chloride 103 mmol/L (98-107); Estimated GFR 74.96 (mL/min/1.73m2); Glucose 123 mg/dL (74-106); Potassium 3.9 mmol/L (3.5-5.1); Sodium 138 mmol/L (136-145)
[2023-08-13 09:14] LABS: HIV-1/2 Ag & Ab Screen Negative (Negative)
[2023-08-13 09:43] LABS: Hepatitis C Ab w Rflx HCV PCR Negative (Negative)
== END 2023-08-12 01:15 | disposition home or self-care (01) ==
LOC: LOS 01:18
PROVIDERS: PCP Nurse Practitioner Family; Visit Provider Nurse Practitioner Family
DX: Z13.1 Encounter for screening for diabetes mellitus (principal); Z11.4 Encounter for screening for human immunodeficiency virus [HIV]; Z11.59 Encounter for screening for other viral diseases
CPT/HCPCS: 36415; 80048; 86803; 87389

== ENCOUNTER 2023-08-27 18:09 | Emergency (ER) | payer MEDICARE, SELFPAY ==
[2023-08-27] VITALS (9 sets, daily range): BP systolic 149–195; BP diastolic 84–90; PULSE 92–101; RESP 14–22; TEMP 36.9; O2SAT 94–96
--- NOTE | 2023-08-27 18:36 | W.ED.GENAD ---
Discharge Plan Disposition Patient Disposition: Home Condition: Improving Discharge Details Clinical Impression: Acute left flank pain Primary Care Provider: Aubrey Walker ED Provider: Pillo Avalos Home Meds and New Rx's Prescriptions: Continued aspirin 81 mg tablet,delayed release (DR/EC) 81 mg PO DAILY gabapentin 300 mg capsule 300 mg PO DAILY Qty: 90 4RF (DME) Aerochamber Plus Flow-Vu,S Msk 1 EACH spacer 1 ea Miscellaneous QID Rx Instructions: WITH LARGE MASK amlodipine 5 mg tablet 5 mg PO DAILY Qty: 90 3RF losartan 100 mg tablet 100 mg PO DAILY Qty: 90 3RF Discharge Instructions Instructions: Flank Pain (ED) Additional Instructions: Your workup is very concerning for an acute kidney stone; however, unfortunately our CT machine is not working and I cannot obtain the test to prove this. You have responded very well to typical kidney stone medication. At this time you are feeling better and are requesting to go home. Using shared decision making, plan to discharge home with a take-home pack of Zofran and hydrocodone. Hydrocodone may cause drowsiness and constipation. I would like you to contact the ER tomorrow morning at 7 AM to confirm that the CT machine is back up and running. If so I would like you to return immediately to the ER for CT imaging to confirm stone, if no stone present, additional workup may be indicated. If at [address] machine is not up and running I recommend going to the nearest local hospital like [place] or [facility] to have the CT obtained as I do not want you to delay therapy any longer. Please watch for new or worsening symptoms and return to the ER immediately. Discharge Data Discharge Date/Time-TO BE ENTERED AT DEPARTURE: 08/27/23 22:01 Medical Decision Making 63-year-old gentleman with a past medical history of hypertension, obesity, back surgery, presents for sudden onset of left flank pain that 1 hour ago associated with nausea. He is unable to find a comfortable position. Denies fever, chest pain, shortness of breath, anterior abdominal pain, any ripping or tearing sensation. Patient has never had symptoms like this previously. Clinically it appears as though his most likely diagnosis is that of a kidney stone. Plan to obtain IV access, provide IV morphine, Toradol, Zofran, IV fluids, obtain routine screening laboratory values and urinalysis. Unfortunately we are in a code black CT downtime for the next 5 or 6 hours minimally. Unable to obtain stat CT. Discussed limitations immediately with patient and family. Using shared decision making, patient would prefer to be treated for presumptive kidney stone and see how he responds to medications as well as what his workup reveals. He is not interested in acute transfer to another facility for CT imaging at this time. Upon reevaluation he is now resting comfortably and reports significant improvement of his overall discomfort. Laboratory values do reveal mild leukocytosis of 13.20, electrolytes unremarkable, BUN 28 creatinine 1.4 GFR 56.13. LFTs unremarkable, lipase 32. Urinalysis reveals moderate blood without evidence of infection. Discussed evaluation, workup, treatment plan in length with patient and family. Single dose of Flomax given for presumptive kidney stone. Patient has no documented history of kidney stone and we discussed it being prudent to prove that this is a kidney stone and that his left flank pain is not coming from another etiology. Patient feels well now and is requesting discharge home. Plan to provide take-home pack of Zofran and oxycodone. I will have him contact the ER tomorrow morning at 7 AM. He will inquire whether or not our CT is back up and running. If so he will return immediately to the ER for noncontrast CT imaging renal colic for further evaluation of the symptoms. If CT is unavailable then he will present likely to [facility] for [facility] imaging. He does understand that he could return here and we could then transfer him for CT if necessary. Patient and family are comfortable with this plan and had no additional questions or concerns. Discussed the importance of returning immediately to the ER for new or evolving symptoms. Medical Records Medical records reviewed: Yes I reviewed the patient's medical records. Lab Data Lab results reviewed: Yes I reviewed the patient's lab results. Labs: 08/27/23 20:19 Urine - Reflex from Ua Urine Culture - Pending Laboratory Tests Range/Units 08/27/23 08/27/23 18:33 20:19 WBC (4.4-10.8) 10^3/uL 13.20 H RBC (4.36-5.78) 10^6/uL 5.05 Hgb (13.5-17.5) g/dL 14.9 Hct (40.0-50.0) % 44.9 MCV (80-95) fL 89 MCH (27.0-33.0) pg 29.5 MCHC (32.0-36.0) % 33.2 RDW (11.8-14.1) % 13.1 Plt Count (130-400) 10^3/uL 372 MPV (8.0-11.0) fL 9.0 Immature Gran % 0.4 Neutrophils % 79.8 Lymphocytes % 12.3 Monocytes % 6.4 Eosinophils % 0.5 Basophils % 0.6 Nucleated RBC % (0.0-0.3) % 0.0 Absolute Neutrophils (1.2-6.7) 10^3/uL 10.53 H Absolute Lymphocytes (1.2-3.4) 10^3/uL 1.62 Absolute Monocytes (0.1-0.8) 10^3/uL 0.84 H Absolute Eosinophils (0.0-0.7) 10^3/uL 0.07 Absolute Basophils (0.0-0.2) 10^3/uL 0.08 Sodium (136-145) mmol/L 139 Potassium (3.5-5.1) mmol/L 4.0 Chloride (98-107) mmol/L 103 Carbon Dioxide (21.0-32.0) mmol/L 23.9 Anion Gap (3-11) mmol/L 12.1 H BUN (7-18) mg/dL 28 H Creatinine (0.70-1.30) mg/dL 1.4 H Est GFR (CKD-EPI 2020) (mL/min/1.73m2) 56.13 Glucose (74-106) mg/dL 145 H Calcium (8.5-10.1) mg/dL 9.0 Total Bilirubin (0.2-1.0) mg/dL 0.3 AST (15-37) U/L 21 ALT (16-63) U/L 37 Alkaline Phosphatase (46-116) U/L 73 Total Protein (6.4-8.2) g/dL 8.5 H Albumin (3.4-5.0) g/dL 4.0 Lipase (16-77) U/L 32 Urine Color (Yellow) Yellow Urine Clarity (Clear) Clear Urine pH (5-8) 5.0 Ur Specific Kemp (1.005-1.025) >= 1.030 H Urine Protein (Negative) mg/dL Negative Urine Ketones (Negative) mg/dL Negative Urine Blood (Negative) Moderate H Urine Nitrite (Negative) Negative Urine Bilirubin (Negative) Negative Urine Urobilinogen (Up to 0.2) mg/dL 0.2 Ur Leukocyte Esterase (Negative) Negative Urine RBC (0-2) HPF 5-10 H Urine WBC (0-5) HPF 3-5 Ur Epithelial Cells (Negative) HPF Rare Urine Crystals (Negative) HPF Negative Urine Bacteria (Negative) HPF Few Urine Casts (Negative) LPF Negative Urine Mucus (Negative) Trace Ur Culture Indicated? Yes Urine Glucose (Negative) mg/dL Negative HPI General Mode of arrival: ambulatory. Date/Time Provider Initiated Documentation: 08/27/23 18:36. Limitations to Documentation: no limitations. Information obtained by: patient and family. History of Present Illness 63 year old M presents to the emergency department with the chief complaint of Left flank pain, described as severe, with intensity rated at 9. Quality is described as sharp, and is localized to the abdomen and left. Patient reports radiation to back and flank. Patient started experiencing this hour(s) (1) and it has been constant. No relieving factors improve symptom(s), No exacerbating factors reported . Patient notes nausea/vomiting (Nausea, no vomiting). Patient did receive the following treatments prior to arrival, none Related Data Home Medications Medication Instructions Recorded Confirmed inhalational spacing device 01/11/13 08/27/23 (Aerochamber Plus Flow-Vu,Small Mask) aspirin 81 mg tablet,delayed 81 mg PO DAILY 11/29/19 08/27/23 release amlodipine 5 mg tablet 5 mg PO DAILY #90 tabs 06/06/23 08/27/23 losartan 100 mg tablet 100 mg PO DAILY #90 tabs 06/06/23 08/27/23 gabapentin 300 mg capsule 300 mg PO DAILY #90 caps 08/05/23 08/27/23 Previous Rx's Medication Instructions Recorded amlodipine 5 mg tablet 5 mg PO DAILY #90 tabs 06/06/23 losartan 100 mg tablet 100 mg PO DAILY #90 tabs 06/06/23 gabapentin 300 mg capsule 300 mg PO DAILY #90 caps 08/05/23 Allergies Allergy/AdvReac Type Severity Reaction Status Date / Time Penicillins Allergy Unknown Verified 07/28/23 14:10 lisinopril AdvReac Intermediate JOINT PAIN Verified 07/28/23 14:10 metoprolol AdvReac Intermediate Fatigue Verified 07/28/23 14:10 General Stated Complaint: FlankPain CHARLES: 3 Review of Systems Constitutional Constitutional: Denies fever(s) and Denies weakness Cardiovascular Cardiovascular: Denies chest pain and Denies dyspnea Respiratory Respiratory: Denies dyspnea Gastrointestinal Gastrointestinal: Reports abdominal pain (Left flank), Reports nausea and Denies vomiting Genitourinary Genitourinary: Denies hematuria, Denies dysuria and Denies testicular pain Musculoskeletal Musculoskeletal: Reports back pain Integumentary/Breasts Skin/Breast: Denies rash Neurologic Neurologic: Denies weakness PFSH All Active Problems Acute left flank pain (Acute) HTN (hypertension) (Chronic) Ventricular ectopy (Acute) MAX (dyspnea on exertion) (Acute) Morbid obesity (Acute) Numbness of right hand (Acute) History of back surgery (Acute) Surgical History History of carpal tunnel release Right ECTR DOS: 09/24/2022 Left ECTR DOS: 10/08/2022 Failed back surgical syndrome Social History Smoking/Tobacco Use Status: Former Tobacco Use tobacco type: cigarettes Tobacco: How many years used: 15 Second Hand Exposure: Yes Smoking risk assessment performed?: Yes Alcohol Intake: current Alcohol Intake frequency: a few times a month Alcohol type: beer Drug use: Never Substance use type: does not use Details: quit smoking many years ago Do you feel safe at home: Yes Do you feel safe in your relationship?: Yes Exam Const General: cooperative and acute distress moderate Orientation: alert and awake HENND Head: normal to inspection Mouth: oral mucosae normal Eyes General: appearance normal, both eyes and all related structures Neck Neck: normal visual inspection, full ROM, no meningeal signs and supple Resp Effort & Inspection: normal respiratory effort and able to speak in complete sentences Auscultation: clear to auscultation bilaterally Cardio Rate: regular rate Rhythm: regular rhythm GI Inspection: obesity Palpation: soft, not firm, no guarding and tender other (Left flank); with no rebound tenderness Auscultation: normal bowel sounds Back/Spine/Pelvis Back: CVA tenderness (Left) Thoracic/Lumbar Spine: No lumbar spinal tenderness Skin General skin exam: no rashes or lesions noted Neuro General: patient alert, patient awake and patient oriented x3 Course Vital Signs Vital signs: Vital Signs Temperature 36.9 C 08/27/23 18:15 Pulse 98 H 08/27/23 18:15 Respiratory Rate 22 08/27/23 18:15 Blood Pressure 195/90 H 08/27/23 18:15 Pulse Oximetry 96 08/27/23 18:15 Temperature 36.9 C 08/27/23 18:15 Temperature Source Oral 08/27/23 18:15 Pulse 98 H 08/27/23 18:15 Respiratory Rate 22 08/27/23 18:15 Blood Pressure 195/90 H 08/27/23 18:15 Pulse Oximetry 96 08/27/23 18:15 Oxygen Delivery Method Room Air 08/27/23 18:15 Oxygen Flow Rate 0 08/27/23 18:15
[2023-08-27] MEDS: Ondansetron 4 MG/2 ML VIAL IVP (18:45)
[2023-08-27] MEDS: Ketorolac 15 MG/ML VIAL IVP (18:45)
[2023-08-27] MEDS: Normal Saline 1,000 ML 1000 ML IV (19:05)
[2023-08-27 19:22] LABS: Abs Immature Grans 0.05 10^3/uL (0.0-0.06); Absolute Basophil Count 0.08 10^3/uL (0.0-0.2); Absolute Lymphocyte Count 1.62 10^3/uL (1.2-3.4); Absolute Monocyte Count 0.84 10^3/uL (0.1-0.8); Basophils % 0.6; Eosinophils % 0.5; HCT 44.9 % (40.0-50.0); HGB 14.9 g/dL (13.5-17.5); Immature Grans % 0.4; Lymphocytes % 12.3; MCH 29.5 pg (27.0-33.0); MCHC 33.2 % (32.0-36.0); MCV 89 fL (80-95); Monocytes % 6.4; Neutrophils % 79.8; Platelet Count 372 10^3/uL (130-400); RBC 5.05 10^6/uL (4.36-5.78); RDW 13.1 % (11.8-14.1); RDW-SD 42.4 fL
[2023-08-27 19:24] LABS: ALT 37 U/L (16-63); AST 21 U/L (15-37); Absolute Eosinophil Count 0.07 10^3/uL (0.0-0.7); Absolute Neutrophil Count 10.53 10^3/uL (1.2-6.7); Alkaline Phosphatase 73 U/L (46-116); Anion Gap 12.1 mmol/L (3-11); BUN 28 mg/dL (7-18); Bilirubin, Total 0.3 mg/dL (0.2-1.0); CO2 23.9 mmol/L (21.0-32.0); CREATININE 1.4 mg/dL (0.70-1.30); Chloride 103 mmol/L (98-107); Estimated GFR 56.13 (mL/min/1.73m2); Glucose 145 mg/dL (74-106); Sodium 139 mmol/L (136-145); Total Protein 8.5 g/dL (6.4-8.2)
[2023-08-27 19:36] LABS: Lipase 32 U/L (16-77)
[2023-08-27 20:24] LABS: Bilirubin Negative (Negative); Blood Moderate (Negative); Clarity Clear (Clear); Glucose Negative (Negative); Ketones Negative (Negative); Leukocyte Esterase Negative (Negative); Nitrite Negative (Negative); Specific Gravity >= 1.030 (1.005-1.025); Urobilinogen 0.2 mg/dL (Up to 0.2)
[2023-08-27 20:31] LABS: Bacteria Few HPF (Negative); C & S Indicated? Yes; Casts Negative LPF (Negative); Crystals Negative HPF (Negative); Epithelial Cells Rare HPF (Negative); Mucus Trace (Negative)
[2023-08-27] MEDS: Tamsulosin 0.4 MG CAPCR PO (21:18)
[2023-08-27] MEDS: Ondansetron O.D.T. 4 MG TABEF, 3 TABS/BTL PO (21:54)
== END 2023-08-27 22:01 | disposition home or self-care (01) ==
PROVIDERS: Emergency Provider Physician Assistant; PCP Nurse Practitioner Family
DX: R10.9 Unspecified abdominal pain (principal); N13.2 Hydronephrosis with renal and ureteral calculous obstruction
CPT/HCPCS: 36415; 80053; 83690; 96374; 96375; 99284; 81003; 81015; 85025; 87086; 99285; J1885; J2405

== ENCOUNTER 2023-08-28 08:29 | Emergency (ER) | payer MEDICARE, SELFPAY ==
[2023-08-28 08:33] VITALS: BP 141/78; PULSE 110; RESP 16; TEMP 37.2; O2SAT 96
[2023-08-28 08:38] VITALS: BP 141/78; PULSE 110; RESP 16; TEMP 37.2; O2SAT 96
--- NOTE | 2023-08-28 08:43 | W.ED.GENAD ---
Discharge Plan Disposition Patient Disposition: Home Discharge Details Clinical Impression: Left ureteral stone Primary Care Provider: Aubrey Walker ED Provider: Talha Lackey Home Meds and New Rx's Prescriptions: New tamsulosin 0.4 mg capsule 0.4 mg PO DAILY Qty: 14 0RF ketorolac 10 mg tablet 10 mg PO Q6H 5 Days Qty: 20 0RF Continued gabapentin 300 mg capsule 300 mg PO DAILY Qty: 90 4RF (DME) Aerochamber Plus Flow-Vu,S Msk 1 EACH spacer 1 ea Miscellaneous QID Rx Instructions: WITH LARGE MASK amlodipine 5 mg tablet 5 mg PO DAILY Qty: 90 3RF losartan 100 mg tablet 100 mg PO DAILY Qty: 90 3RF Held aspirin 81 mg tablet,delayed release (DR/EC) 81 mg PO DAILY Hold Instructions: Resume on 09/03/23. Hold aspirin while taking Ketorlac Discharge Instructions Instructions: Ketorolac (By mouth), Tamsulosin (By mouth), Ureteral Stones (ED) Additional Instructions: You were seen in the emergency department for your suspected kidney stone last night, this was confirmed by CT scan today, you have a 5 mm stone in your left ureter which connects your kidney to your bladder. This is likely small enough to pass but we need to treat with aggressive hydration including drinking 1/2 to 1 gallon of water per day, taking the prescribed tamsulosin which dilates the urethra and urinary system which should help pass the stone. I have also sent a prescription for a stronger anti-inflammatory called ketorolac to use for the next 5 days. Hold your aspirin while taking this medication. Take 1000 mg of Tylenol also 4 times per day detention between ketorolac doses. If you passed the stone to your bladder you may need to purchase [id number] AZO which will help numb the urethra for the discomfort which will take place when you pass the stone from the bladder out. As we discussed the need to return immediately for any signs of infected kidney stone including fever, nausea vomiting, weakness, your urine had no signs of bacteria in it today so this is a low risk but still significant. I have attached the urology group contact information, you may need to contact them for stenting if your stone is not passing over the next week or so. Referrals: [facility] [Provider Group] (Obstructing 5mm renal stone; may need outpatient stenting) Aubrey Walker, BALDEV [Primary Care Provider] - Medical Decision Making This dictation utilizes [id number] dictation software and may contain unedited grammatical errors. 63 y/o M presents to ED today with a chief complaint of returns for CT, seen last night with suspected renal stone while CT was down- had mild elevation of WBCs and mild LORENZO. Onset and characteristics include a couple days of L flank pain, some migration to LLQ overnight- denies worsening or pain, fever, nausea, weakness overnight. Patients' medical history: Hypertension, morbid obesity, chronic pain syndrome, sciatica. Family and social history: noncontributory. Pertinent exam findings / vital signs include no CVA tenderness on exam today, mild tachycardia, afebrile, benign abdomen. Differential / pathologies of concern include kidney stone, obstructive uropathy, unlikely sepsis at this time- suspect tachycardia related to ambulating in with morbid obesity, pyelonephritis, hernia. Diagnostic studies of: -repeat CBC, CMP, UA to trend- CT Renal wo Contrast. -WBCs WNL, leukocytosis resolved -CMP shows improved SCr from last night, 1.1 down from 1.4 -UA non-infected Interventions of: -none, patient is on tamsulosin and pain mgmt from last night's visit. ED Course: Counseled the patient on 5 mm left ureteral stone with some evidence of mild hydronephrosis, discussed at length precautions regarding infected kidney stone and that his urine had no signs of infection at this time. Counseled that this stone would likely pass but he may need to follow-up with urology as an outpatient. Counseled the patient on aggressive hydration, taking 2 weeks of tamsulosin until kidney stone is passed as well as Azo and prescribed Toradol and recommend therapeutic dosing Tylenol intermittently as well. Findings not consistent with infected kidney stone, UTI, pyelonephritis, 5 mm stone will likely pass without evidence of severe hydronephrosis on imaging. Disposition of Left Ureteral Stone. Patient verbalized understanding of the plan and return to ED criteria and engaged in shared decision making. Medical Records Medical records reviewed: Yes I reviewed the patient's medical records. Imaging Data Radiologic Study: Imaging: CT Scan My impression: 5mm L ureteral stone w/ mild hydronephrosis Radiologist's impression: EXAM: CT RENAL COLIC WO CLINICAL HISTORY: L flank pain, ?stone, SCr up. TECHNIQUE: Imaging Protocol: Axial computed tomography images with coronal and sagittal reformatted images were created and reviewed CONTRAST MATERIAL: Intravenous: none Oral: None COMPARISON: CT CT CHEST PE CTA from 11/22/2019 FINDINGS: VISUALIZED LUNG BASES: No nodules nor pleural effusions evident. ABDOMEN: There is no ascites. LIVER: Liver again noted be hypodense implying steatosis. No discrete focal hepatic lesions identified. GALLBLADDER/BILIARY: No obvious gallbladder pathology. CBD is not dilated. PANCREAS: No evidence of pancreatic mass nor dilatation of the pancreatic duct. SPLEEN: Spleen is not enlarged. No obvious intrasplenic lesions. ADRENALS: There are no significant adrenal masses. KIDNEYS:There are small calculi seen in both kidneys. On the left side there is mild hydronephrosis and hydroureter which is due to a radiopaque calculus at the mid left ureteral level measuring approximately 5 by 4 mm. There are no additional calculi seen lower down in the ureter nor in the urinary bladder. There are no calculi seen in the nondilated opposite-right ureter. There are no significant renal masses. No cysts evident.. ABDOMINAL AORTA: Abdominal aorta is not enlarged. LYMPH NODES: There is no retroperitoneal nor paraaortic adenopathy. ABDOMINAL WALL: No evidence of significant anterior abdominal wall nor inguinal hernia. GI: There is no evidence of bowel obstruction, free air, nor abscess. PELVIS: LYMPH NODES: There is no intrapelvic nor inguinal adenopathy. GI: No evidence of appendicitis.No evidence of sigmoid diverticulitis. URINARY BLADDER: No calculi nor obvious masses evident REPRODUCTIVE: Prostate not enlarged. Seminal vesicles unremarkable. OSSEOUS: No significant osseous lesions. No fractures. Degenerative disc disease lower lumbar spine noted IMPRESSION: 1. There is a 4 x 5 mm obstructing calculus in the mid left ureter approximately L4 level. Mild dilatation left collecting system above this level. 2. There also other similar size calculi evident within both kidneys. Lab Data Lab results reviewed: Yes I reviewed the patient's lab results. Labs: Laboratory Tests Range/Units 08/28/23 08/28/23 09:01 09:54 WBC (4.4-10.8) 10^3/uL 8.39 RBC (4.36-5.78) 10^6/uL 4.82 Hgb (13.5-17.5) g/dL 14.3 Hct (40.0-50.0) % 43.2 MCV (80-95) fL 90 MCH (27.0-33.0) pg 29.7 MCHC (32.0-36.0) % 33.1 RDW (11.8-14.1) % 13.2 Plt Count (130-400) 10^3/uL 314 MPV (8.0-11.0) fL 8.5 Immature Gran % 0.5 Neutrophils % 72.3 Lymphocytes % 17.8 Monocytes % 7.7 Eosinophils % 1.0 Basophils % 0.7 Nucleated RBC % (0.0-0.3) % 0.0 Absolute Neutrophils (1.2-6.7) 10^3/uL 6.07 Absolute Lymphocytes (1.2-3.4) 10^3/uL 1.49 Absolute Monocytes (0.1-0.8) 10^3/uL 0.65 Absolute Eosinophils (0.0-0.7) 10^3/uL 0.08 Absolute Basophils (0.0-0.2) 10^3/uL 0.06 Sodium (136-145) mmol/L 140 Potassium (3.5-5.1) mmol/L 3.6 Chloride (98-107) mmol/L 105 Carbon Dioxide (21.0-32.0) mmol/L 24.4 Anion Gap (3-11) mmol/L 10.6 BUN (7-18) mg/dL 23 H Creatinine (0.70-1.30) mg/dL 1.1 Est GFR (CKD-EPI 2020) (mL/min/1.73m2) 74.96 Glucose (74-106) mg/dL 131 H Calcium (8.5-10.1) mg/dL 8.6 Total Bilirubin (0.2-1.0) mg/dL 0.5 AST (15-37) U/L 22 ALT (16-63) U/L 35 Alkaline Phosphatase (46-116) U/L 63 Total Protein (6.4-8.2) g/dL 7.9 Albumin (3.4-5.0) g/dL 3.6 Urine Color (Yellow) Yellow Urine Clarity (Clear) Clear Urine pH (5-8) 5.0 Ur Specific [place] (1.005-1.025) 1.025 Urine Protein (Negative) mg/dL Trace H Urine Ketones (Negative) mg/dL Negative Urine Blood (Negative) Small H Urine Nitrite (Negative) Negative Urine Bilirubin (Negative) Negative Urine Urobilinogen (Up to 0.2) mg/dL 0.2 Ur Leukocyte Esterase (Negative) Negative Urine RBC (0-2) HPF 3-5 H Urine WBC (0-5) HPF Negative Ur Epithelial Cells (Negative) HPF Moderate Urine Crystals (Negative) HPF Negative Urine Bacteria (Negative) HPF Rare Urine Casts (Negative) LPF 0-2 Hyaline Urine Mucus (Negative) Trace Ur Culture Indicated? No Urine Glucose (Negative) mg/dL Negative HPI General Date/Time Provider Initiated Documentation: 08/28/23 08:43. HPI Narrative: 63 year-old male presents to ED today by POV/ambulating with a chief complaint of L flank pain, seen here last night while CT was down- suspected kidney stone without history of such, recommended to return for CT. Quality described as L flank dull aching pain, some migration to LLQ, no radiation to fever, nausea overnight, shakiness, weakness, bowel changes, urinary retention, pain well controlled at this time. Severity is described as 5-6/10. Palliating factors include was given analgesics to take home with relief. Provoking factors include nothing specific. Patient not anticoagulated. Related Data Home Medications Medication Instructions Recorded Confirmed inhalational spacing device 01/11/13 08/28/23 (Aerochamber Plus Flow-Vu,Small Mask) aspirin 81 mg tablet,delayed 81 mg PO DAILY 11/29/19 08/28/23 release amlodipine 5 mg tablet 5 mg PO DAILY #90 tabs 06/06/23 08/28/23 losartan 100 mg tablet 100 mg PO DAILY #90 tabs 06/06/23 08/28/23 gabapentin 300 mg capsule 300 mg PO DAILY #90 caps 08/05/23 08/28/23 ketorolac 10 mg tablet 10 mg PO Q6H acute pain 5 days #20 08/28/23 tabs tamsulosin 0.4 mg capsule 0.4 mg PO DAILY renal stone #14 08/28/23 caps Previous Rx's Medication Instructions Recorded amlodipine 5 mg tablet 5 mg PO DAILY #90 tabs 06/06/23 losartan 100 mg tablet 100 mg PO DAILY #90 tabs 06/06/23 gabapentin 300 mg capsule 300 mg PO DAILY #90 caps 08/05/23 ketorolac 10 mg tablet 10 mg PO Q6H acute pain 5 days #20 08/28/23 tabs tamsulosin 0.4 mg capsule 0.4 mg PO DAILY renal stone #14 08/28/23 caps Allergies Allergy/AdvReac Type Severity Reaction Status Date / Time Penicillins Allergy Unknown Verified 08/28/23 08:39 lisinopril AdvReac Intermediate JOINT PAIN Verified 08/28/23 08:39 metoprolol AdvReac Intermediate Fatigue Verified 08/28/23 08:39 General Stated Complaint: FlankPain CHARLES: 3 Review of Systems All systems reviewed & are unremarkable except as noted in HPI and below PFSH All Active Problems Left ureteral stone (Acute) Acute left flank pain (Acute) HTN (hypertension) (Chronic) Ventricular ectopy (Acute) MAX (dyspnea on exertion) (Acute) Morbid obesity (Acute) Numbness of right hand (Acute) History of back surgery (Acute) Surgical History History of carpal tunnel release Right ECTR DOS: 09/24/2022 Left ECTR DOS: 10/08/2022 Failed back surgical syndrome Social History Smoking/Tobacco Use Status: Former Tobacco Use tobacco type: cigarettes Tobacco: How many years used: 15 Second Hand Exposure: Yes Smoking risk assessment performed?: Yes Alcohol Intake: current Alcohol Intake frequency: a few times a month Alcohol type: beer Drug use: Never Substance use type: does not use Details: quit smoking many years ago Do you feel safe at home: Yes Do you feel safe in your relationship?: Yes Exam Narrative Exam Narrative: GENERAL APPEARANCE: Well-nourished, non-toxic, awake and alert, atraumatic, no acute distress. SKIN: Warm, pink, dry, intact, without rashes/lesions/ulcerations. HEAD: Normocephalic, atraumatic, normal hair distribution for gender/age. EYES: Pupils PERRLA, EOMs intact without nystagmus, normal conjunctiva, no exudates on lids/lashes. ENT: Nares patent, no circumoral cyanosis, no facial swelling NECK: Supple, trachea midline, painless cervical ROM. LUNGS/CHEST: Non-labored respirations, normal A/P diameter, symmetrical expansion, no chest wall deformity HEART (CV/PV): No peripheral edema, no JVD. ABDOMEN: Soft, non-distended, no guarding, no CVA tenderness to percussion bilaterally, no anterior abdominal tenderness. MSK: Normal ROM, no swelling/deformity to bilateral UEs or LEs, moving all extremities without weakness, no cyanosis, spine midline without tenderness, normal curvature. NEURO: Mental Status AAOx4 - alert to person, place, time, events No facial droop, no forehead involvement. Motor: No focal weakness - strength 5/5 in bilateral UEs and LEs, proximal and distal, symmetric. Sensory: sensation intact to light touch globally. Gait normal: patient ambulated without ataxia into ED room. PSYCH: euthymic, cooperative, pleasant, appropriate speech Course Vital Signs Vital signs: Vital Signs Temperature 37.2 C 08/28/23 08:33 Pulse 110 H 08/28/23 08:33 Respiratory Rate 16 08/28/23 08:33 Blood Pressure 141/78 H 08/28/23 08:33 Pulse Oximetry 96 08/28/23 08:33 Temperature 37.2 C 08/28/23 08:38 Temperature Source Skin 08/28/23 08:33 Pulse 110 H 08/28/23 08:38 Respiratory Rate 16 08/28/23 08:38 Respiratory Effort Normal 08/28/23 08:36 Blood Pressure 141/78 H 08/28/23 08:38 Blood Pressure Position Sitting 08/28/23 08:33 Pulse Oximetry 96 08/28/23 08:38 Oxygen Delivery Method Room Air 08/28/23 08:33 Oxygen Flow Rate 0 08/28/23 08:33 Pain Level 0 08/28/23 08:38
[2023-08-28 09:11] LABS: Abs Immature Grans 0.04 10^3/uL (0.0-0.06); Absolute Basophil Count 0.06 10^3/uL (0.0-0.2); Absolute Eosinophil Count 0.08 10^3/uL (0.0-0.7); Absolute Lymphocyte Count 1.49 10^3/uL (1.2-3.4); Absolute Monocyte Count 0.65 10^3/uL (0.1-0.8); Absolute Neutrophil Count 6.07 10^3/uL (1.2-6.7); Basophils % 0.7; HCT 43.2 % (40.0-50.0); HGB 14.3 g/dL (13.5-17.5); Immature Grans % 0.5; Lymphocytes % 17.8; MCH 29.7 pg (27.0-33.0); MCHC 33.1 % (32.0-36.0); MCV 90 fL (80-95); MPV 8.5 fL (8.0-11.0); Monocytes % 7.7; Neutrophils % 72.3; Platelet Count 314 10^3/uL (130-400); RBC 4.82 10^6/uL (4.36-5.78); RDW 13.2 % (11.8-14.1); RDW-SD 43.4 fL; WBC 8.39 10^3/uL (4.4-10.8)
[2023-08-28 09:26] LABS: ALT 35 U/L (16-63); AST 22 U/L (15-37); Albumin 3.6 g/dL (3.4-5.0); Alkaline Phosphatase 63 U/L (46-116); Anion Gap 10.6 mmol/L (3-11); BUN 23 mg/dL (7-18); Bilirubin, Total 0.5 mg/dL (0.2-1.0); CO2 24.4 mmol/L (21.0-32.0); CREATININE 1.1 mg/dL (0.70-1.30); Calcium 8.6 mg/dL (8.5-10.1); Chloride 105 mmol/L (98-107); Estimated GFR 74.96 (mL/min/1.73m2); Glucose 131 mg/dL (74-106); Potassium 3.6 mmol/L (3.5-5.1); Sodium 140 mmol/L (136-145); Total Protein 7.9 g/dL (6.4-8.2)
[2023-08-28 10:04] LABS: Bilirubin Negative (Negative); Blood Small (Negative); Clarity Clear (Clear); Glucose Negative (Negative); Ketones Negative (Negative); Leukocyte Esterase Negative (Negative); Nitrite Negative (Negative); Specific Gravity 1.025 (1.005-1.025); Urobilinogen 0.2 mg/dL (Up to 0.2)
[2023-08-28 10:16] LABS: Bacteria Rare HPF (Negative); C & S Indicated? No; Casts 0-2 Hyaline LPF (Negative); Crystals Negative HPF (Negative); Epithelial Cells Moderate HPF (Negative); Mucus Trace (Negative); WBC Negative HPF (0-5)
--- NOTE | 2023-08-28 10:25 | DI.CT_ITS ---
Exam(s) CT RENAL COLIC WO EXAM: CT RENAL COLIC WO CLINICAL HISTORY: L flank pain, ?stone, SCr up. TECHNIQUE: Imaging Protocol: Axial computed tomography images with coronal and sagittal reformatted images were created and reviewed CONTRAST MATERIAL: Intravenous: none Oral: None COMPARISON: CT CT CHEST PE CTA from 11/22/2019 FINDINGS: VISUALIZED LUNG BASES: No nodules nor pleural effusions evident. ABDOMEN: There is no ascites. LIVER: Liver again noted be hypodense implying steatosis. No discrete focal hepatic lesions identifi ed. GALLBLADDER/BILIARY: No obvious gallbladder pathology. CBD is not dilated. PANCREAS: No evidence of pancreatic mass nor dilatation of the pancreatic duct. SPLEEN: Spleen is not enlarged. No obvious intrasplenic lesions. ADRENALS: There are no significant adrenal masses. KIDNEYS:There are small calculi seen in both kidneys. On the left side there is mild hydronephrosis and hydroureter which is due to a radiopaque calculus at the mid left ureteral level measuring approx imately 5 by 4 mm. There are no additional calculi seen lower down in the ureter nor in the urinary bladder. There are no calculi seen in the nondilated opposite-right ureter. There are no significan t renal masses. No cysts evident.. ABDOMINAL AORTA: Abdominal aorta is not enlarged. LYMPH NODES: There is no retroperitoneal nor paraaortic adenopathy. ABDOMINAL WALL: No evidence of significant anterior abdominal wall nor inguinal hernia. GI: There is no evidence of bowel obstruction, free air, nor abscess. PELVIS: LYMPH NODES: There is no intrapelvic nor inguinal adenopathy. GI: No evidence of appendicitis.No evidence of sigmoid diverticulitis. URINARY BLADDER: No calculi nor obvious masses evident REPRODUCTIVE: Prostate not enlarged. Seminal vesicles unremarkable. OSSEOUS: No significant osseous lesions. No fractures. Degenerative disc disease lower lumbar spine noted IMPRESSION: 1. There is a 4 x 5 mm obstructing calculus in the mid left ureter approximately L4 level. Mild dila tation left collecting system above this level. 2. There also other similar size calculi evident within both kidneys. Called by myself to ER RADIATION DOSE DELIVERED: Total DLP DATA REPOSITORY: All CT scans at this facility are submitted to the National Radiology Data Registry (NRDR) Dose Index Registry (DIR) with the [employer] ([employer]). RADIATION OPTIMIZATION: All CT scans at this facility use at least one of these dose optimization te chniques: automated exposure control; mA and/or kV adjustment per patient size (includes targeted exa ms where dose is matched to clinical indication); or iterative reconstruction.
[2023-08-28 11:14] VITALS: BP 143/69; PULSE 91; RESP 16; O2SAT 95
== END 2023-08-28 11:16 | disposition home or self-care (01) ==
PROVIDERS: Emergency Provider Physician Assistant; PCP Nurse Practitioner Family
DX: N13.2 Hydronephrosis with renal and ureteral calculous obstruction (principal)
CPT/HCPCS: 80053; 74176; 81003; 81015; 85025

== ENCOUNTER 2024-02-22 13:30 | Emergency (ER) | payer OTHER, SELFPAY ==
[2024-02-22] VITALS (54 sets, daily range): BP systolic 106–171; BP diastolic 58–95; PULSE 92–149; RESP 10–35; TEMP 37.3; O2SAT 91–96
--- NOTE | 2024-02-22 13:30 | RT.EKG_ITS ---
APPROVED REPORT Exam: Resting ECG Reason for Exam: labored breathing Patient Location: E HR:137 bpm ECG Measurements Heart Rate 137 AXIS DE 160 P 119 QRSd 79 QRS 70 QT 278 T -15 QTc 421 Conclusion Sinus tachycardia...rate> 99 Multiform ventricular premature complexes...short R-R, variable morphology
--- NOTE | 2024-02-22 14:00 | DI.CT_ITS ---
Exam(s) CT CHEST PE CTA EXAM: CT CHEST PE CTA CLINICAL HISTORY: chest pain, SOB, tachycardia. TECHNIQUE: Imaging Protocol: Axial CT angiography was performed with multi-slice acquisition and mu lti-planar reconstructions as well as axial, coronal and sagittal MIP reconstructions. CONTRAST MATERIAL: Intravenous: Omnipaque 350 Contrast volume:100 ml COMPARISON: CT CT CHEST PE CTA from 11/22/[address] RENAL COLIC WO from 08/28/2023 FINDINGS: Pulmonary Arteries: No evidence of filling defect to suggest pulmonary emboli. Tracheobronchial tree: No mucous plugging. Mediastinum and Sulema: No dominant adenopathy or fluid collection. Pulmonary parenchyma: Dependent and expiratory changes. No consolidation or dominant measurable mass . Pleura: No effusion or pneumothorax. Heart: The heart is mildly dilated. No coronary artery calcifications are seen. Aorta: Thoracic aorta non-dilated. No dissection. Upper abdomen: Enlarged fatty liver. Bones: Unremarkable for age. Tubes, Catheters, and Lines: None Soft tissues: Unremarkable. IMPRESSION: No evidence of pulmonary embolism or other acute abnormality. RADIATION DOSE DELIVERED: Total DLP DATA REPOSITORY: All CT scans at this facility are submitted to the National Radiology Data Registry (NRDR) Dose Index Registry (DIR) with the [employer] (ACR). RADIATION OPTIMIZATION: All CT scans at this facility use at least one of these dose optimization te chniques: automated exposure control; mA and/or kV adjustment per patient size (includes targeted exa ms where dose is matched to clinical indication); or iterative reconstruction.
[2024-02-22 14:11] LABS: Abs Immature Grans 0.16 10^3/uL (0.0-0.06); Absolute Lymphocyte Count 0.59 10^3/uL (1.2-3.4); Absolute Monocyte Count 1.25 10^3/uL (0.1-0.8); Absolute Neutrophil Count 19.07 10^3/uL (1.2-6.7); Basophils % 0.3 %; HCT 43.8 % (40.0-50.0); HGB 14.6 g/dL (13.5-17.5); Immature Grans % 0.8 %; Lymphocytes % 2.8 %; MCH 29.5 pg (27.0-33.0); MCHC 33.3 % (32.0-36.0); MCV 89 fL (80-95); Monocytes % 5.9 %; Neutrophils % 90.2 %; Platelet Count 278 10^3/uL (130-400); RBC 4.95 10^6/uL (4.36-5.78); RDW 13.2 % (11.8-14.1); RDW-SD 43.3 fL; WBC 21.14 10^3/uL (4.4-10.8)
[2024-02-22] MEDS: Lactated Ringers 1,000 ML 1000 ML IV (14:11)
[2024-02-22 14:14] LABS: Lactate 1.1 mmol/L (0.6-1.4)
[2024-02-22 14:17] LABS: Absolute Basophil Count 0.06 10^3/uL (0.0-0.2)
[2024-02-22 14:28] LABS: ALT 25 U/L (16-63); AST 24 U/L (15-37); Albumin 3.2 g/dL (3.4-5.0); Alkaline Phosphatase 73 U/L (46-116); Anion Gap 9.9 mmol/L (3-11); BUN 17 mg/dL (7-18); Bilirubin, Total 0.7 mg/dL (0.2-1.0); CO2 25.1 mmol/L (21.0-32.0); CREATININE 1.6 mg/dL (0.70-1.30); Calcium 8.9 mg/dL (8.5-10.1); Chloride 98 mmol/L (98-107); Estimated GFR 47.82 (mL/min/1.73m2); Glucose 163 mg/dL (74-106); Magnesium 1.8 mg/dL (1.8-2.4); NT-proBNP 1904 pg/mL (<300); Potassium 3.5 mmol/L (3.5-5.1); Sodium 133 mmol/L (136-145); Total Protein 8.3 g/dL (6.4-8.2); Troponin I < 50 ng/L (< or =60)
[2024-02-22] MEDS: Omnipaque 350 MG/ML 100 ML BTL IJ (14:45)
[2024-02-22] MEDS: Normal Saline - Diluent 50 ML VIAL IJ (15:04)
[2024-02-22 15:05] LABS: COVID-19 PCR Negative (Negative); Influenza A PCR Negative (Negative); Influenza B PCR Negative (Negative)
[2024-02-22 15:07] LABS: RSV PCR Positive (Negative); Source Nasopharynx
--- NOTE | 2024-02-22 15:46 | DI.VRAD_ITS ---
PROCEDURE INFORMATION: Exam: CTA Chest With Contrast Exam date and time: 02/22/2024 2:48 PM Age: 63 years old Clinical indication: Pain; Shortness of breath; Chest pressure TECHNIQUE: Imaging protocol: Computed tomographic angiography of the chest with contrast. Exam focused on the arteries. 3D rendering (Not supervised by radiologist): MIP and/or 3D reconstructed images were created by the technologist. Contrast material: OMNIPAQUE 350; Contrast volume: 100 ml; Contrast route: INTRAVENOUS (IV); COMPARISON: CT CHEST PE CTA 11/22/2019 3:11 PM FINDINGS: Pulmonary arteries: No evidence for pulmonary arterial embolism. Aorta: Unremarkable. No aortic aneurysm. No aortic dissection. Lungs: Minor left basilar subsegmental atelectasis. Pleural spaces: Unremarkable. No pneumothorax. No pleural effusion. Heart: Unremarkable. No cardiomegaly. No pericardial effusion. Lymph nodes: Unremarkable. No enlarged lymph nodes. Bones/joints: Degenerative changes in the thoracic spine. Soft tissues: Unremarkable. IMPRESSION: No evidence for pulmonary arterial embolism. Dictated and Authenticated by: Anjum Cedeño MD. Ordering:KAVON Prince MD
--- NOTE | 2024-02-22 15:59 | ED.GENADUL_ITS ---
Discharge Plan Disposition Patient Disposition: Admit to [facility] Discharge Details Clinical Impression: LORENZO (acute kidney injury), Acute dehydration, RSV bronchitis Primary Care Provider: Aubrey Walker ED Provider: Suresh Peña Home Meds and New Rx's Prescriptions: No Action aspirin 81 mg tablet,delayed release (DR/EC) 81 mg PO DAILY Hold Instructions: Resume on 09/03/23. Hold aspirin while taking Ketorlac gabapentin 300 mg capsule 300 mg PO DAILY Qty: 90 4RF (DME) Aerochamber Plus Flow-Vu,S Msk 1 EACH spacer 1 ea Miscellaneous QID Rx Instructions: WITH LARGE MASK amlodipine 5 mg tablet 5 mg PO DAILY Qty: 90 3RF losartan 100 mg tablet 100 mg PO DAILY Qty: 90 3RF tamsulosin 0.4 mg capsule 0.4 mg PO DAILY Qty: 14 0RF HPI General Mode of arrival: ambulatory . Date/Time Provider Initiated Documentation: 02/22/24 13:40 . Limitations to Documentation: no limitations . Information obtained by: patient . HPI Narrative: 63-year-old male with history of hypertension, presents with chief complaint of difficulty breathing. Patient notes difficulty breathing with chest discomfort over the past 3 days. He has had associated confusion over the same period of time. No fever. He has had cough. In his left flank/back that felt like his kidney stone. This has since resolved. Related Data Home Medications Medication Instructions Recorded Confirmed inhalational spacing device 01/11/13 02/22/24 (Aerochamber Plus Flow-Vu,Small Mask) aspirin 81 mg tablet,delayed 81 mg PO DAILY 11/29/19 02/22/24 release amlodipine 5 mg tablet 5 mg PO DAILY #90 tabs 06/06/23 02/22/24 losartan 100 mg tablet 100 mg PO DAILY #90 tabs 06/06/23 02/22/24 gabapentin 300 mg capsule 300 mg PO DAILY #90 caps 08/05/23 02/22/24 tamsulosin 0.4 mg capsule 0.4 mg PO DAILY renal stone #14 08/28/23 02/22/24 caps Previous Rx's Medication Instructions Recorded amlodipine 5 mg tablet 5 mg PO DAILY #90 tabs 06/06/23 losartan 100 mg tablet 100 mg PO DAILY #90 tabs 06/06/23 gabapentin 300 mg capsule 300 mg PO DAILY #90 caps 08/05/23 tamsulosin 0.4 mg capsule 0.4 mg PO DAILY renal stone #14 08/28/23 caps Allergies Allergy/AdvReac Type Severity Reaction Status Date / Time Penicillins Allergy Unknown Skin Rash Verified 02/22/24 13:37 lisinopril AdvReac Intermediate JOINT PAIN Verified 02/22/24 13:37 metoprolol AdvReac Intermediate Fatigue Verified 02/22/24 13:37 General Stated Complaint: RespSymp CHARLES: 3 Review of Systems All systems reviewed & are unremarkable except as noted in HPI and below Constitutional Constitutional: Reports fatigue Respiratory Respiratory: Reports as per HPI Endocrine Endocrine: Reports fatigue Exam Const General: cooperative and no acute distress HENMT Mouth: mucous membranes dry Eyes Conjunctivae: normal conjunctivae Sclera: normal sclerae Neck Neck: trachea midline and supple Resp Auscultation: clear to auscultation bilaterally, no rales, no rhonchi and no wheezes Cardio Rate: tachycardic Rhythm: regular rhythm GI Palpation: soft, not firm, no guarding, no masses, not rigid and nontender Skin General skin exam: no rashes or lesions noted Neuro General: patient alert, patient awake, patient oriented x3 and tone normal Extrem General: no calf tenderness and no edema Psych Appearance: grossly normal Mental Status: mental status grossly normal Speech and Movement: speech and movement normal Course Vital Signs Vital signs: Vital Signs Temperature 37.3 C 02/22/24 13:34 Pulse 138 H 02/22/24 13:34 Respiratory Rate 24 02/22/24 13:34 Blood Pressure 134/63 02/22/24 13:34 Pulse Oximetry 93 02/22/24 13:34 Temperature 37.3 C 02/22/24 13:38 Temperature Source Temporal Artery Scan 02/22/24 13:38 Pulse 92 H 02/22/24 14:31 Pulse 119 H 02/22/24 14:40 Respiratory Rate 26 H 02/22/24 14:40 Respiratory Effort Short of Breath 02/22/24 14:06 Respiratory Depth Normal 02/22/24 14:06 Blood Pressure 140/84 02/22/24 14:31 Blood Pressure Mean 102 02/22/24 14:31 Blood Pressure Position Sitting 02/22/24 13:38 Pulse Oximetry 93 02/22/24 14:40 Oxygen Delivery Method Room Air 02/22/24 13:38 Oxygen Flow Rate 0 02/22/24 13:38 Lab/Test Results Lab/Test Results: 02/22/24 13:36 Blood Blood Culture - Pending 02/22/24 13:36 Blood Blood Culture - Pending Laboratory Tests Range/Units 02/22/24 02/22/24 02/22/24 13:36 13:36 14:11 WBC (4.4-10.8) 10^3/uL 21.14 H RBC (4.36-5.78) 10^6/uL 4.95 Hgb (13.5-17.5) g/dL 14.6 Hct (40.0-50.0) % 43.8 MCV (80-95) fL 89 MCH (27.0-33.0) pg 29.5 MCHC (32.0-36.0) % 33.3 RDW (11.8-14.1) % 13.2 Plt Count (130-400) 10^3/uL 278 MPV (8.0-11.0) fL 9.0 Immature Gran % % 0.8 Neutrophils % % 90.2 Lymphocytes % % 2.8 Monocytes % % 5.9 Eosinophils % % 0.0 Basophils % % 0.3 Nucleated RBC % (0.0-0.3) % 0.0 Absolute Neutrophils (1.2-6.7) 10^3/uL 19.07 H Absolute Lymphocytes (1.2-3.4) 10^3/uL 0.59 L Absolute Monocytes (0.1-0.8) 10^3/uL 1.25 H Absolute Eosinophils (0.0-0.7) 10^3/uL 0.00 Absolute Basophils (0.0-0.2) 10^3/uL 0.06 VBG Lactate (0.6-1.4) mmol/L 1.1 Sodium (136-145) mmol/L 133 L Potassium (3.5-5.1) mmol/L 3.5 Chloride (98-107) mmol/L 98 Carbon Dioxide (21.0-32.0) mmol/L 25.1 Anion Gap (3-11) mmol/L 9.9 BUN (7-18) mg/dL 17 Creatinine (0.70-1.30) mg/dL 1.6 H Est GFR (CKD-EPI 2020) (mL/min/1.73m2) 47.82 Glucose (74-106) mg/dL 163 H Calcium (8.5-10.1) mg/dL 8.9 Magnesium (1.8-2.4) mg/dL 1.8 Total Bilirubin (0.2-1.0) mg/dL 0.7 AST (15-37) U/L 24 ALT (16-63) U/L 25 Alkaline Phosphatase (46-116) U/L 73 Troponin I (< or =60) ng/L < 50 NT-Pro-B Natriuret Pep (<300) pg/mL 1904 H Cancelled Total Protein (6.4-8.2) g/dL 8.3 H Albumin (3.4-5.0) g/dL 3.2 L COVID-19 Source Nasopharynx SARS-CoV-2 (PCR) (Negative) Negative Influenza Type A (PCR) (Negative) Negative Influenza Type B (PCR) (Negative) Negative RSV (PCR) (Negative) Positive A* Medical Decision Making 1605 --63-year-old with history of diabetes, hypertension, morbid obesity, presents with shortness of breath and chest discomfort with associated confusion over the past 3 days. Patient is hypoxic on room air saturating the lower 90s. He is tachycardic and normotensive on arrival. Screening EKG was reviewed and interpreted by me: Please see report, sinus tachycardia 137 bpm, normal axis, PVCs noted. Patient does appear dehydrated. Patient given IV fluid bolus. Concern for acute pulmonary embolism. CT of the chest was interpreted by radiology, no evidence for PE. Minor left basilar subsegmental atelectasis noted in the lungs. No pleural effusion. No cardiomegaly. No pericardial effusion. Labs reviewed: Elevated BNP concerning for potential CHF. Troponin normal. Creatinine elevated and concerning for LORENZO. Patient does have a significant leukocytosis of 21,000. Lactate is normal. COVID and influenza are negative but RSV positive. I suspect symptoms are related to RSV infection. Patient remains tachycardic although improved from prior. Plan for hospitalization for continued treatment including supplemental oxygen. Quality:SDOH Health Related Social Needs: No Data to Display PFSH All Active Problems RSV bronchitis (Acute) Acute dehydration (Acute) LORENZO (acute kidney injury) (Acute) Diabetes type 2, controlled (Acute) HTN (hypertension) (Chronic) Ventricular ectopy (Acute) MAX (dyspnea on exertion) (Acute) Morbid obesity (Acute) Numbness of right hand (Acute) History of back surgery (Acute) Surgical History History of carpal tunnel release Right ECTR DOS: 09/24/2022 Left ECTR DOS: 10/08/2022 Failed back surgical syndrome Social History Smoking/Tobacco Use Status: Former Tobacco Use tobacco type: cigarettes Tobacco: How many years used: 15 Second Hand Exposure: Yes Smoking risk assessment performed?: Yes Alcohol Intake: current Alcohol Intake frequency: a few times a month Alcohol type: beer Drug use: Never Substance use type: does not use Details: quit smoking many years ago Housing: house Do you feel safe at home: Yes Do you feel safe in your relationship?: Yes PAWSS Have you Been Recently Intoxicated or Drunk Within the Last 30 days?: No Have you Ever Experienced Previous Episodes of Alcohol Withdrawal?: No Have you ever Experienced Withdrawal Seizures?: No Have you ever Experienced Delirium Tremens(DT)s?: No Have you ever undergone Alcohol Rehabilitation Treatment (i.e, inpt ot outpatient treatment programs)?: No Have you ever Experienced Blackouts?: No Have you ever Combined Alcohol with other Downers within the last 90 days?: No Have you ever Combined Alcohol with any other Substance of Abuse during the last 90 days?: No Positive Blood Alcohol level on Presentation? [PCS.BAL]: No Evidence of Increased Autonomic Activity (i.e. HR>120, tremor, sweating, agitation, nausea)?: No Result: 0
[2024-02-22] MEDS: Acetaminophen 500 MG TAB 1000 MG PO (17:45)
[2024-02-22 17:47] LABS: Bilirubin Negative (Negative); Blood Large (Negative); Clarity Sl Cloudy (Clear); Glucose Negative (Negative); Ketones Trace mg/dL (Negative); Leukocyte Esterase Negative (Negative); Nitrite Negative (Negative); Specific Gravity 1.015 (1.005-1.025); Urobilinogen 0.2 mg/dL (Up to 0.2)
[2024-02-22 17:57] LABS: Bacteria Few HPF (Negative); C & S Indicated? Yes; Casts 3-5 Hyaline LPF (Negative); Crystals Negative HPF (Negative); Epithelial Cells Rare HPF (Negative); Mucus Moderate (Negative)
[2024-02-22 18:03] LABS: Troponin I < 50 ng/L (< or =60)
--- NOTE | 2024-02-22 19:17 | W.MEDCONSULT ---
Date of service: 02/22/24 Time of Service: 19:17 Assessment and Plan Assessment and plan (1) RSV bronchitis: Status: Acute Assessment and plan: RSV. At this point clinically the patient is not demonstrating any complications and I think general supportive measures are all that is called for here. The modest elevation in BNP is noted, and while CHF can theoretically be a complication of RSV, patient is not exhibiting any clinical signs and I think treat the patient, not the numbers is the correct approach at present and I would advise only monitoring. Likewise noted is the leukocytosis, but no signs of superimposed pneumonia. Notably patient is requesting to go home. As long as the patient is oxygenating adequately I think he can be safely discharged with close outpatient follow up in next 1-2 days with PCP, along with instructions to return to ER for any worsening or new symptoms. History of Present Illness History of Present Illness Chief Complaint: cough Narrative: 63 male with h/o HTN here with 2 days of dry cough. Denies SOB, CP or fever. In ER initial O2 sats mid 90s, some to 92. During my visit sats on RA consistently approx 94. Findings in ER of note for sinus tachycardia, white count 21 and +RSV swab (patient is unvaccinated). BNP 1904 (no h/o CHF), Creat 1.6, BUN 17. CT chest shows mild left basilar atelectasis, otherwise negative; specifically, no consolidation, cardiomegaly, CHF, or pericardial effusion. EKG sinus tach with occ PVCs, no STTW changes, trop negative. I was asked to evaluate for possible admission. Patient denies orthopnea, no h/o pedal edema. Review of Systems Narrative: per HPI PFSH All Active Problems RSV bronchitis (Acute) Acute dehydration (Acute) LORENZO (acute kidney injury) (Acute) Diabetes type 2, controlled (Acute) HTN (hypertension) (Chronic) Ventricular ectopy (Acute) MAX (dyspnea on exertion) (Acute) Morbid obesity (Acute) Numbness of right hand (Acute) History of back surgery (Acute) Surgical History History of carpal tunnel release Right ECTR DOS: 09/24/2022 Left ECTR DOS: 10/08/2022 Failed back surgical syndrome Social History Smoking/Tobacco Use Status: Former Tobacco Use tobacco type: cigarettes Tobacco: How many years used: 15 Second Hand Exposure: Yes Smoking risk assessment performed?: Yes Alcohol Intake: current Alcohol Intake frequency: a few times a month Alcohol type: beer Drug use: Never Substance use type: does not use Details: quit smoking many years ago Housing: house Do you feel safe at home: Yes Do you feel safe in your relationship?: Yes Exam Narrative Exam Narrative: 166/95, 108-120 during visit, 37.3, 20, RA sats 93-94. amd maintains 94 during exercise in ER. HEENT atraumatic; neck supple; lungs clear; heart occ ectopic, distant; abdomen soft and NT; extremities w/o edema; neuro Ox3, lucid, moves all 4s Results Last Vital Signs Temp 37.3 C 02/22/24 13:38 Pulse 121 H 02/22/24 19:09 Resp 20 02/22/24 19:10 BP 166/95 H 02/22/24 19:09 Pulse Ox 94 02/22/24 16:30 Labs 02/22/24 13:36 02/22/24 13:36 Labs: Laboratory Results - last 24 hr 02/22/24 02/22/24 02/22/24 13:36 13:36 14:11 WBC 21.14 H RBC 4.95 Hgb 14.6 Hct 43.8 MCV 89 MCH 29.5 MCHC 33.3 RDW 13.2 Plt Count 278 MPV 9.0 Immature Gran % 0.8 Neutrophils % 90.2 Lymphocytes % 2.8 Monocytes % 5.9 Eosinophils % 0.0 Basophils % 0.3 Nucleated RBC % 0.0 Absolute Neutrophils 19.07 H Absolute Lymphocytes 0.59 L Absolute Monocytes 1.25 H Absolute Eosinophils 0.00 Absolute Basophils 0.06 VBG Lactate 1.1 Sodium 133 L Potassium 3.5 Chloride 98 Carbon Dioxide 25.1 Anion Gap 9.9 BUN 17 Creatinine 1.6 H Est GFR (CKD-EPI 2020) 47.82 Glucose 163 H Calcium 8.9 Magnesium 1.8 Total Bilirubin 0.7 AST 24 ALT 25 Alkaline Phosphatase 73 Troponin I < 50 NT-Pro-B Natriuret Pep 1904 H Cancelled Total Protein 8.3 H Albumin 3.2 L Urine Color Urine Clarity Urine pH Ur Specific [place] Urine Protein Urine Ketones Urine Blood Urine Nitrite Urine Bilirubin Urine Urobilinogen Ur Leukocyte Esterase Urine RBC Urine WBC Ur Epithelial Cells Urine Crystals Urine Bacteria Urine Casts Urine Mucus Ur Culture Indicated? Urine Glucose COVID-19 Source Nasopharynx SARS-CoV-2 (PCR) Negative Influenza Type A (PCR) Negative Influenza Type B (PCR) Negative RSV (PCR) Positive A* 02/22/24 17:41 WBC RBC Hgb Hct MCV MCH MCHC RDW Plt Count MPV Immature Gran % Neutrophils % Lymphocytes % Monocytes % Eosinophils % Basophils % Nucleated RBC % Absolute Neutrophils Absolute Lymphocytes Absolute Monocytes Absolute Eosinophils Absolute Basophils VBG Lactate Sodium Potassium Chloride Carbon Dioxide Anion Gap BUN Creatinine Est GFR (CKD-EPI 2020) Glucose Calcium Magnesium Total Bilirubin AST ALT Alkaline Phosphatase Troponin I < 50 NT-Pro-B Natriuret Pep Total Protein Albumin Urine Color Yellow Urine Clarity Sl Cloudy Urine pH 6.0 Ur Specific [place] 1.015 Urine Protein >=300 H Urine Ketones Trace H Urine Blood Large H Urine Nitrite Negative Urine Bilirubin Negative Urine Urobilinogen 0.2 Ur Leukocyte Esterase Negative Urine RBC 10-20 H Urine WBC 5-10 Ur Epithelial Cells Rare Urine Crystals Negative Urine Bacteria Few Urine Casts 3-5 Hyaline Urine Mucus Moderate Ur Culture Indicated? Yes Urine Glucose Negative COVID-19 Source SARS-CoV-2 (PCR) Influenza Type A (PCR) Influenza Type B (PCR) RSV (PCR)
--- NOTE | 2024-02-22 19:17 | W.EDPROG ---
Date of service: 02/22/24 Time of Service: 19:17 Medical Decision Making This dictation utilizes [id number] dictation software and may contain unedited grammatical errors. Patient seen in sign-out from Dr. Suresh Peña, please see his complete note - Essentially this 63 y/o M presents to ED today with a chief complaint of difficulty breathing and some mild chest discomfort for the past 3 days. Patient tested positive for RSV, he has some mild LORENZO and received fluid resuscitation here, he was on low-flow nasal cannula which was weaned off and he was maintaining sats of 95% - maintained 93% with significant ambulation. I consulted with Hospitalist Dr. Robert as was the plan at sign-out. He evaluated the patient and feels he may be stable enough to go home, and the patient agreed and expressed desire to go home. States he's feeling a bit better and is comfortable doing PO intake at home, taking regular dosings of Tylenol and ibuprofen. I did see and evaluate the patient after this he was in no significant respiratory distress, I did discuss with him that his heart rate was 115 that his respirations were slightly above normal but he states that he still would like to be discharged home, he is likely febrile for the reason of having a fever. Patients' medical history: Hypertension, obesity, history of tobacco use, type 2 diabetes controlled. Family and social history: Noncontributory. Pertinent exam findings / vital signs include no rales at bases, neuro intact. Diagnostic studies of: -no pulmonary edema on chest CT -mild LORENZO 1.6 on a baseline of 1.1, possible source of BNP -WBCs is 21, likely in the setting of hemoconcentration and RSV infection Interventions of: -given Tylenol. ED Course/Assessment/Plan: Patient signed out to me with only needing 1 dose of Tylenol, he states he feels better, I did have the night hospitalist, evaluate the patient, Dr. Robert feels the patient may be able to go home, we did perform an ambulatory road test at that time and he did not desaturate without any supplemental oxygen. We discussed this with the patient he wished to be discharged home, recommend therapeutic dosing of Tylenol and ibuprofen and staying well-hydrated due to his mild LORENZO which was repleted by fluid resuscitation here in the department, Dr. Robert did not feel that his chest x-ray was suspicious for any pulmonary edema nor was that part of the read, reasonable for close follow-up outpatient for workup of possible CHF but the patient overall has findings consistent with viral syndrome. I did spend significant time counseling the patient on the need for strict return criteria for any worsening at home including respiratory distress, confusion, fevers not responding to Tylenol and ibuprofen. HR 103, 94% SpO2 prior to discharge. Findings not consistent with hypoxic respiratory failure, congestive heart failure, pulmonary edema, sepsis, likely has dehydration and RSV bronchitis. Disposition of RSV bronchitis, Acute Kidney Injury, Acute Dehydration. Patient verbalized understanding of the plan and return to ED criteria and engaged in shared decision making. Medical Records Medical records reviewed: Yes I reviewed the patient's medical records. Imaging Data Radiologic Study: Attestation: I personally reviewed and interpreted this imaging study as follows: Imaging: CT Scan Radiologist's impression: Exam: CTA Chest With Contrast Exam date and time: 02/22/2024 2:48 PM Age: 63 years old Clinical indication: Pain; Shortness of breath; Chest pressure TECHNIQUE: Imaging protocol: Computed tomographic angiography of the chest with contrast. Exam focused on the arteries. 3D rendering (Not supervised by radiologist): MIP and/or 3D reconstructed images were created by the technologist. Contrast material: OMNIPAQUE 350; Contrast volume: 100 ml; Contrast route: INTRAVENOUS (IV); COMPARISON: CT CHEST PE CTA 11/22/2019 3:11 PM FINDINGS: Pulmonary arteries: No evidence for pulmonary arterial embolism. Aorta: Unremarkable. No aortic aneurysm. No aortic dissection. Lungs: Minor left basilar subsegmental atelectasis. Pleural spaces: Unremarkable. No pneumothorax. No pleural effusion. Heart: Unremarkable. No cardiomegaly. No pericardial effusion. Lymph nodes: Unremarkable. No enlarged lymph nodes. Bones/joints: Degenerative changes in the thoracic spine. Soft tissues: Unremarkable. IMPRESSION: No evidence for pulmonary arterial embolism. Dictated and Authenticated by: Anjum Cedeño MD. Ordering:KAVON Prince MD Lab Data Lab results reviewed: Yes I reviewed the patient's lab results. Labs: 02/22/24 17:41 Urine - Reflex from Ua Urine Culture - Pending 02/22/24 13:36 Blood Blood Culture - Pending 02/22/24 13:36 Blood Blood Culture - Pending Laboratory Tests Range/Units 02/22/24 02/22/2402/21/24 13:36 13:36 14:11 WBC (4.4-10.8) 10^3/uL 21.14 H RBC (4.36-5.78) 10^6/uL 4.95 Hgb (13.5-17.5) g/dL 14.6 Hct (40.0-50.0) % 43.8 MCV (80-95) fL 89 MCH (27.0-33.0) pg 29.5 MCHC (32.0-36.0) % 33.3 RDW (11.8-14.1) % 13.2 Plt Count (130-400) 10^3/uL 278 MPV (8.0-11.0) fL 9.0 Immature Gran % % 0.8 Neutrophils % % 90.2 Lymphocytes % % 2.8 Monocytes % % 5.9 Eosinophils % % 0.0 Basophils % % 0.3 Nucleated RBC % (0.0-0.3) % 0.0 Absolute Neutrophils (1.2-6.7) 10^3/uL 19.07 H Absolute Lymphocytes (1.2-3.4) 10^3/uL 0.59 L Absolute Monocytes (0.1-0.8) 10^3/uL 1.25 H Absolute Eosinophils (0.0-0.7) 10^3/uL 0.00 Absolute Basophils (0.0-0.2) 10^3/uL 0.06 VBG Lactate (0.6-1.4) mmol/L 1.1 Sodium (136-145) mmol/L 133 L Potassium (3.5-5.1) mmol/L 3.5 Chloride (98-107) mmol/L 98 Carbon Dioxide (21.0-32.0) mmol/L 25.1 Anion Gap (3-11) mmol/L 9.9 BUN (7-18) mg/dL 17 Creatinine (0.70-1.30) mg/dL 1.6 H Est GFR (CKD-EPI 2020) (mL/min/1.73m2) 47.82 Glucose (74-106) mg/dL 163 H Calcium (8.5-10.1) mg/dL 8.9 Magnesium (1.8-2.4) mg/dL 1.8 Total Bilirubin (0.2-1.0) mg/dL 0.7 AST (15-37) U/L 24 ALT (16-63) U/L 25 Alkaline Phosphatase (46-116) U/L 73 Troponin I (< or =60) ng/L < 50 NT-Pro-B Natriuret Pep (<300) pg/mL 1904 H Cancelled Total Protein (6.4-8.2) g/dL 8.3 H Albumin (3.4-5.0) g/dL 3.2 L Urine Color (Yellow) Urine Clarity (Clear) Urine pH (5-8) Ur Specific [place] (1.005-1.025) Urine Protein (Neg-Trace) mg/dL Urine Ketones (Negative) mg/dL Urine Blood (Negative) Urine Nitrite (Negative) Urine Bilirubin (Negative) Urine Urobilinogen (Up to 0.2) mg/dL Ur Leukocyte Esterase (Negative) Urine RBC (0-2) HPF Urine WBC (0-5) HPF Ur Epithelial Cells (Negative) HPF Urine Crystals (Negative) HPF Urine Bacteria (Negative) HPF Urine Casts (Negative) LPF Urine Mucus (Negative) Ur Culture Indicated? Urine Glucose (Negative) mg/dL COVID-19 Source Nasopharynx SARS-CoV-2 (PCR) (Negative) Negative Influenza Type A (PCR) (Negative) Negative Influenza Type B (PCR) (Negative) Negative RSV (PCR) (Negative) Positive A* Range/Units 02/22/24 17:41 WBC (4.4-10.8) 10^3/uL RBC (4.36-5.78) 10^6/uL Hgb (13.5-17.5) g/dL Hct (40.0-50.0) % MCV (80-95) fL MCH (27.0-33.0) pg MCHC (32.0-36.0) % RDW (11.8-14.1) % Plt Count (130-400) 10^3/uL MPV (8.0-11.0) fL Immature Gran % % Neutrophils % % Lymphocytes % % Monocytes % % Eosinophils % % Basophils % % Nucleated RBC % (0.0-0.3) % Absolute Neutrophils (1.2-6.7) 10^3/uL Absolute Lymphocytes (1.2-3.4) 10^3/uL Absolute Monocytes (0.1-0.8) 10^3/uL Absolute Eosinophils (0.0-0.7) 10^3/uL Absolute Basophils (0.0-0.2) 10^3/uL VBG Lactate (0.6-1.4) mmol/L Sodium (136-145) mmol/L Potassium (3.5-5.1) mmol/L Chloride (98-107) mmol/L Carbon Dioxide (21.0-32.0) mmol/L Anion Gap (3-11) mmol/L BUN (7-18) mg/dL Creatinine (0.70-1.30) mg/dL Est GFR (CKD-EPI 2020) (mL/min/1.73m2) Glucose (74-106) mg/dL Calcium (8.5-10.1) mg/dL Magnesium (1.8-2.4) mg/dL Total Bilirubin (0.2-1.0) mg/dL AST (15-37) U/L ALT (16-63) U/L Alkaline Phosphatase (46-116) U/L Troponin I (< or =60) ng/L < 50 NT-Pro-B Natriuret Pep (<300) pg/mL Total Protein (6.4-8.2) g/dL Albumin (3.4-5.0) g/dL Urine Color (Yellow) Yellow Urine Clarity (Clear) Sl Cloudy Urine pH (5-8) 6.0 Ur Specific [place] (1.005-1.025) 1.015 Urine Protein (Neg-Trace) mg/dL >=300 H Urine Ketones (Negative) mg/dL Trace H Urine Blood (Negative) Large H Urine Nitrite (Negative) Negative Urine Bilirubin (Negative) Negative Urine Urobilinogen (Up to 0.2) mg/dL 0.2 Ur Leukocyte Esterase (Negative) Negative Urine RBC (0-2) HPF 10-20 H Urine WBC (0-5) HPF 5-10 Ur Epithelial Cells (Negative) HPF Rare Urine Crystals (Negative) HPF Negative Urine Bacteria (Negative) HPF Few Urine Casts (Negative) LPF 3-5 Hyaline Urine Mucus (Negative) Moderate Ur Culture Indicated? Yes Urine Glucose (Negative) mg/dL Negative COVID-19 Source SARS-CoV-2 (PCR) (Negative) Influenza Type A (PCR) (Negative) Influenza Type B (PCR) (Negative) RSV (PCR) (Negative) Quality:SDOH Health Related Social Needs: No Data to Display Sign Out Sign Out Data: Sign Out Comment: Patient is here with chest discomfort, shortness of breath and dyspnea on exertion. He has had some cough. Patient significantly tachycardic on arrival and hypoxic in the low 90s on room air. Patient is on low-dose supplemental oxygen. CT of the chest was negative for pulmonary embolism. No significant infiltrate noted. Patient's BNP is elevated. Plan to hospitalize for continued supplemental oxygen, conservative management of RSV and further diagnostic workup for potential CHF. Plan at signout is to discuss with [facility] hospitalist for admission. Last updated by Suresh Peña MD at 02/22/24 16:44 Discharge Plan Disposition Patient Disposition: Home Discharge Details Clinical Impression: LORENZO (acute kidney injury), Acute dehydration, RSV bronchitis Primary Care Provider: Aubrey Walker ED Provider: Talha Lackey Home Meds and New Rx's Prescriptions: Continued aspirin 81 mg tablet,delayed release (DR/EC) 81 mg PO DAILY Hold Instructions: Resume on 09/03/23. Hold aspirin while taking Ketorlac gabapentin 300 mg capsule 300 mg PO DAILY Qty: 90 4RF (DME) Aerochamber Plus Flow-Vu,S Msk 1 EACH spacer 1 ea Miscellaneous QID Rx Instructions: WITH LARGE MASK amlodipine 5 mg tablet 5 mg PO DAILY Qty: 90 3RF losartan 100 mg tablet 100 mg PO DAILY Qty: 90 3RF tamsulosin 0.4 mg capsule 0.4 mg PO DAILY Qty: 14 0RF Discharge Instructions Instructions: Respiratory Syncytial Virus (ED), Dehydration (ED) Additional Instructions: You were seen in the emergency department for your difficulty breathing and chest discomfort, you have RSV bronchitis. There is no evidence of pulmonary edema and you were weaned off your oxygen here in the emergency department. You wished to be discharged home stating that you would rather be at home to take Tylenol and ibuprofen and pursue p.o. aggressive hydration. This is reasonable as your oxygen saturations did not drop while you are walking around the emergency department but I do stress that due to your comorbidities of obesity and general health status that should you be experiencing any further worsening respiratory distress or difficulty breathing or fevers not responding to Tylenol and ibuprofen that you be reevaluated at this emergency department immediately. Please use therapeutic dosing of Tylenol (acetamenophen) & Advil (ibuprofen) in an alternating fashion as follows: Take 1000mg of Tylenol every 6 hours without missing doses- that is 4 times per day. Senior Living in between the Tylenol dosings, take 400-600mg of Advil also on a 6 hour schedule, that is also 4 times per day. The daily maximum dosing of Tylenol is 4000mg, and the daily maximum dosing of Advil is 2400mg. This is safe to do for weeks. Please note that some common cold medications & prescription pain medications may contain acetamenophen and you need to read OTC drug labels and factor that in to maximum daily dosings. Please drink aggressive amounts of water and substances with electrolytes like Gatorade. Please follow-up closely with your regular provider, you may need an outpatient echocardiogram in the next 3 months due to your elevation of BNP today. Referrals: Aubrey Walker NP [Primary Care Provider] - Discharge Data Discharge Date/Time-TO BE ENTERED AT DEPARTURE: 02/22/24 19:35
== END 2024-02-22 19:35 | disposition home or self-care (01) ==
PROVIDERS: Student in an Organized Health Care Education/Training Program; Emergency Provider Physician Assistant; PCP Nurse Practitioner Family
DX: J20.5 Acute bronchitis due to respiratory syncytial virus (principal); E86.0 Dehydration; N17.9 Acute kidney failure, unspecified; R06.00 Dyspnea, unspecified; E11.9 Type 2 diabetes mellitus without complications
CPT/HCPCS: 00123; 36415; 71275; 80053; 87040; 87077; 87637; 93005; 96360; 96361; 99283; 99285; 81003; 81015; 83605; 83735; 83880; 84484; 85025; 87086; 87186; 93010; J3490

== ENCOUNTER 2024-02-23 09:49 | Inpatient (IN) | payer OTHER, SELFPAY ==
[2024-02-23] VITALS (33 sets, daily range): BP systolic 110–143; BP diastolic 59–83; PULSE 85–103; RESP 15–22; TEMP 36.6–37.8; O2SAT 92–98
--- NOTE | 2024-02-23 09:45 | DI.RAD_ITS ---
Exam(s) XR CHEST 2V PA LATERAL EXAM: XR CHEST 2V PA LATERAL CLINICAL HISTORY: sob, rsv positive, gram neg bacteremia TECHNIQUE: 2D digital imaging was performed. Two views. COMPARISON: CT CT CHEST PE CTA from 02/22/2024 FINDINGS: HEART: Normal size. Aorta: Not dilated. PULMONARY VASCULATURE: Normal. LUNGS: Clear. PLEURAL SPACE: No pleural effusion or pneumothorax. BONE:Unremarkable for age. Soft tissues: Unremarkable. IMPRESSION: No acute abnormality. DATA REPOSITORY: RADIATION DOSE DELIVERED:
--- NOTE | 2024-02-23 10:00 | DI.CT_ITS ---
Exam(s) CT ABDOMEN PELVIS W EXAM: CT ABDOMEN PELVIS W CLINICAL HISTORY: abd pain intermittent lt, diarrhea, g(-) bacteremi. TECHNIQUE: Imaging Protocol: Axial computed tomography images with coronal and sagittal reformatted images were created and reviewed CONTRAST MATERIAL: Intravenous: Omnipaque 350 Contrast volume:100 ml Oral: no COMPARISON: CT CT RENAL COLIC WO from 08/28/[address] CHEST PE CTA from 02/22/2024 FINDINGS: ABDOMEN and PELVIS: Lung Bases: No acute findings. Liver: Normal density. No suspicious mass. Gallbladder and biliary tract: No radiodense calculus. No biliary dilation. Pancreas: Normal density. No abnormal calcifications or inflammatory process. No evidence of mass. Spleen: Normal. Kidneys: Normal size, contour and axis. Small bilateral nonobstructing calculi. No obstructive urop athy. No suspicious masses seen. Patchy perfusion to the left kidney. Mild perinephric stranding. Findings suspicious for pyelonephritis. Mild thickening of the renal pelvis. No significant renal artery stenosis. Adrenal glands: No masses seen. Vasculature: Abdominal aorta non-dilated. Soft tissues: Unremarkable. Bladder: Nearly empty. Contrast in urinary bladder. No gross wall thickening. No calculi.No focal m ass. Bowel: No obstruction. No bowel wall thickening. Appendix normal. Very little stool. Peritoneal cavity: No ascites. No focal collection. No mesenteric inflammatory response. Bones: Unremarkable for age. Reproductive organs: Unremarkable. Lymph nodes: No pathologically enlarged lymph nodes. IMPRESSION:: Patchy left renal perfusion and mild enhancement of the urothelium, suspicious for pyel onephritis. Nonobstructing stone mid left kidney. RADIATION DOSE DELIVERED: Total DLP DATA REPOSITORY: All CT scans at this facility are submitted to the National Radiology Data Registry (NRDR) Dose Index Registry (DIR) with the [employer] (ACR). RADIATION OPTIMIZATION: All CT scans at this facility use at least one of these dose optimization te chniques: automated exposure control; mA and/or kV adjustment per patient size (includes targeted exa ms where dose is matched to clinical indication); or iterative reconstruction.
[2024-02-23 10:14] LABS: Abs Immature Grans 0.06 10^3/uL (0.0-0.06); Absolute Basophil Count 0.05 10^3/uL (0.0-0.2); Basophils % 0.4 %; Eosinophils % 0.1 %; HCT 41.5 % (40.0-50.0); Immature Grans % 0.4 %; Lymphocytes % 3.7 %; MCH 29.7 pg (27.0-33.0); MCHC 33.7 % (32.0-36.0); MCV 88 fL (80-95); Monocytes % 4.5 %; Neutrophils % 90.9 %; Platelet Count 232 10^3/uL (130-400); RBC 4.72 10^6/uL (4.36-5.78); RDW 13.6 % (11.8-14.1); RDW-SD 43.8 fL; WBC 13.41 10^3/uL (4.4-10.8)
[2024-02-23 10:15] LABS: Absolute Eosinophil Count 0.01 10^3/uL (0.0-0.7); Absolute Neutrophil Count 12.19 10^3/uL (1.2-6.7)
[2024-02-23] MEDS: CEFEPIME 2 GM in Normal Saline 100 ML IVPB (10:18)
[2024-02-23] MEDS: Normal Saline Flush 10 ML SYR IVP (10:19)
[2024-02-23] MEDS: Normal Saline - Diluent 50 ML VIAL IJ (10:20)
[2024-02-23] MEDS: Omnipaque 350 MG/ML 100 ML BTL IJ (10:21)
[2024-02-23 10:24] LABS: Lactate 1.2 mmol/L (0.6-1.4)
[2024-02-23 10:29] LABS: ALT 32 U/L (16-63); AST 30 U/L (15-37); Albumin 2.9 g/dL (3.4-5.0); Alkaline Phosphatase 71 U/L (46-116); Anion Gap 10.2 mmol/L (3-11); BUN 23 mg/dL (7-18); Bilirubin, Total 0.5 mg/dL (0.2-1.0); CO2 25.8 mmol/L (21.0-32.0); CREATININE 1.4 mg/dL (0.70-1.30); Calcium 8.9 mg/dL (8.5-10.1); Chloride 100 mmol/L (98-107); Estimated GFR 56.13 (mL/min/1.73m2); Glucose 154 mg/dL (74-106); Potassium 3.3 mmol/L (3.5-5.1); Sodium 136 mmol/L (136-145); Total Protein 7.9 g/dL (6.4-8.2)
--- NOTE | 2024-02-23 10:29 | W.ED.GENAD ---
Discharge Plan Disposition Patient Disposition: Admit to [facility] Condition: Serious Discharge Details Clinical Impression: Gram-negative bacteremia, RSV bronchitis, Pyelonephritis Admit Date/Time: 02/23/24 11:41 Admit Provider: Savage Alcaraz Attending Provider: Savage Alcaraz Primary Care Provider: Aubrey Walker ED Provider: Suresh Peña Discharge Data Discharge Date/Time-TO BE ENTERED AT DEPARTURE: 02/23/24 13:00 HPI General Mode of arrival: ambulatory. Date/Time Provider Initiated Documentation: 02/23/24 09:53. Limitations to Documentation: no limitations. Information obtained by: patient. HPI Narrative: 63-year-old male with history of hypertension, seen here yesterday for difficulty breathing and cough with associated confusion. Patient was tachycardic, RSV positive, met sepsis criteria. Patient was discharged home and notes continues to feel ill. Blood cultures that were drawn yesterday are growing Gram negative rods in both anaerobic and aerobic bottles. Patient was advised to return to the emergency department for reevaluation this morning. Patient now noting intermittent mild left-sided abdominal pain since yesterday. He notes loose stool over the past 3 to 4 days. He continues to have shortness of breath and cough. Confusion has improved since yesterday. Related Data Home Medications Medication Instructions Recorded Confirmed inhalational spacing device 01/11/13 03/02/24 (Aerochamber Plus Flow-Vu,Small Mask) aspirin 81 mg tablet,delayed 81 mg PO DAILY 11/29/19 03/02/24 release amlodipine 5 mg tablet 5 mg PO DAILY #90 tabs 06/06/23 03/02/24 losartan 100 mg tablet 100 mg PO DAILY #90 tabs 06/06/23 03/02/24 L. acidophilus,casei,rhamnosus 50 1 cap PO DAILY #11 caps 02/25/24 03/02/24 billion cell capsule,delayed release (Bio-K plus) cefpodoxime 200 mg tablet 400 mg (2 x 200 mg) PO Q12H #44 02/25/24 03/02/24 tabs Previous Rx's Medication Instructions Recorded amlodipine 5 mg tablet 5 mg PO DAILY #90 tabs 06/06/23 losartan 100 mg tablet 100 mg PO DAILY #90 tabs 06/06/23 L. acidophilus,casei,rhamnosus 50 1 cap PO DAILY #11 caps 02/25/24 billion cell capsule,delayed release (Bio-K plus) cefpodoxime 200 mg tablet 400 mg (2 x 200 mg) PO Q12H #44 02/25/24 tabs Allergies Allergy/AdvReac Type Severity Reaction Status Date / Time Penicillins Allergy Unknown Skin Rash Verified 03/02/24 10:47 lisinopril AdvReac Intermediate JOINT PAIN Verified 03/02/24 10:47 metoprolol AdvReac Intermediate Fatigue Verified 03/02/24 10:47 General Stated Complaint: GenMedical CHARLES: 3 Review of Systems All systems reviewed & are unremarkable except as noted in HPI and below Constitutional Constitutional: Reports fatigue Cardiovascular Cardiovascular: Denies chest pain and Reports dyspnea Respiratory Respiratory: Reports cough and Reports dyspnea Endocrine Endocrine: Reports fatigue Exam Const General: cooperative HENMT Mouth: moist mucous membranes Eyes Conjunctivae: normal conjunctivae Sclera: normal sclerae Neck Neck: trachea midline and supple Resp Effort & Inspection: cough and tachypneic Auscultation: no rales, rhonchi (right) and no wheezes Cardio Rate: tachycardic Rhythm: regular rhythm GI Palpation: soft, not firm, no guarding, no masses, not rigid and nontender Skin General skin exam: no rashes or lesions noted Neuro General: patient alert, patient awake and tone normal Extrem General: no edema Course Vital Signs Vital signs: Vital Signs Temperature 36.7 C 02/23/24 09:53 Pulse 103 H 02/23/24 09:53 Respiratory Rate 22 02/23/24 09:53 Blood Pressure 127/62 02/23/24 09:53 Pulse Oximetry 95 02/23/24 09:53 Temperature 36.7 C 02/23/24 09:53 Temperature Source Oral 02/23/24 09:53 Pulse 103 H 02/23/24 09:53 Respiratory Rate 22 02/23/24 09:53 Respiratory Effort Normal, Non-Labored 02/23/24 09:57 Blood Pressure 127/62 02/23/24 09:53 Blood Pressure Position Sitting 02/23/24 09:53 Pulse Oximetry 95 02/23/24 09:53 Oxygen Delivery Method Room Air 02/23/24 09:53 Oxygen Flow Rate 0 02/23/24 09:53 Pain Level 0 02/23/24 09:53 Lab/Test Results Lab/Test Results: 02/23/24 10:10 Blood Blood Culture - Pending 02/23/24 10:02 Blood Blood Culture - Pending Laboratory Tests Range/Units 02/23/24 02/23/24 10:02 10:16 WBC (4.4-10.8) 10^3/uL 13.41 H RBC (4.36-5.78) 10^6/uL 4.72 Hgb (13.5-17.5) g/dL 14.0 Hct (40.0-50.0) % 41.5 MCV (80-95) fL 88 MCH (27.0-33.0) pg 29.7 MCHC (32.0-36.0) % 33.7 RDW (11.8-14.1) % 13.6 Plt Count (130-400) 10^3/uL 232 MPV (8.0-11.0) fL 9.0 Immature Gran % % 0.4 Neutrophils % % 90.9 Lymphocytes % % 3.7 Monocytes % % 4.5 Eosinophils % % 0.1 Basophils % % 0.4 Nucleated RBC % (0.0-0.3) % 0.0 Absolute Neutrophils (1.2-6.7) 10^3/uL 12.19 H Absolute Lymphocytes (1.2-3.4) 10^3/uL 0.50 L Absolute Monocytes (0.1-0.8) 10^3/uL 0.60 Absolute Eosinophils (0.0-0.7) 10^3/uL 0.01 Absolute Basophils (0.0-0.2) 10^3/uL 0.05 VBG Lactate (0.6-1.4) mmol/L 1.2 Medical Decision Making 1033 --63-year-old male with history of diabetes, hypertension, obesity, seen here yesterday emerged part and diagnosed with RSV bronchitis, was septic and had blood cultures drawn which are now growing gram-negative rods in aerobic and anaerobic bottles. Patient continues to have cough and shortness of breath with dyspnea on exertion. He remains tachycardic although improved slightly from yesterday. Patient saturating 95% on room air and is tachypneic. CT of the chest yesterday interpreted by radiology:No evidence of pulmonary embolism or other acute abnormality. Concern for gram-negative robinson bacteremia. Plan to initiate treatment with cefepime 2 g IV. Unclear source of bacteremia at this point. Patient has had recent abdominal discomfort and loose stool. Will obtain CT of the abdomen pelvis. Leukocytosis again noted. 1115 -- Chest x-ray interpreted by radiology: No active disease in the chest. No consolidation. 1132 -- CT of the chest abdomen pelvis was interpreted by radiology: CT the abdomen pelvis was interpreted by radiology:IMPRESSION: 1. Findings consistent with left upper urinary tract infection (pyelonephritis and ureteritis). 2. Bilateral nonobstructing renal calculi. 3. Additional incidental/nonemergent findings are discussed in the body of the report. Plan to hospitalize for continued treatment. Quality:SDOH Health Related Social Needs: No Data to Display PFSH All Active Problems Pyelonephritis of left kidney (Acute) Pyelonephritis (Acute) Gram-negative bacteremia (Acute) RSV bronchitis (Acute) Diabetes type 2, controlled (Acute) HTN (hypertension) (Chronic) Ventricular ectopy (Acute) MAX (dyspnea on exertion) (Acute) Morbid obesity (Acute) Numbness of right hand (Acute) History of back surgery (Acute) Medical History (Updated 03/02/24 @ 11:06 by Aubrey Davison NP) Insomnia RSV bronchitis Acute dehydration LORENZO (acute kidney injury) Surgical History History of carpal tunnel release Right ECTR DOS: 09/24/2022 Left ECTR DOS: 10/08/2022 Failed back surgical syndrome Social History Smoking/Tobacco Use Status: Former Tobacco Use tobacco type: cigarettes Tobacco: How many years used: 15 Second Hand Exposure: Yes Smoking risk assessment performed?: Yes Alcohol Intake: current Alcohol Intake frequency: a few times a month Alcohol type: beer Drug use: Never Substance use type: does not use Details: quit smoking many years ago Housing: house Do you feel safe at home: Yes Do you feel safe in your relationship?: Yes
--- NOTE | 2024-02-23 11:10 | DI.VRAD_ITS ---
PROCEDURE INFORMATION: Exam: XR Chest Exam date and time: 02/23/2024 10:48 AM Age: 63 years old Clinical indication: Other: SOB, rsv positive, gram neg bacteremia TECHNIQUE: Imaging protocol: Radiologic exam of the chest. Views: 2 views. COMPARISON: 1. CT CHEST PE CTA 02/22/2024 2:48 PM 2. CR XR CHEST 2V PA LATERAL 11/22/2019 1:50 PM FINDINGS: Lungs: Clear. No consolidation. No pulmonary edema. Pulmonary vasculature is normal in caliber. Pleural spaces: Unremarkable. No pleural effusion or pneumothorax. Heart/Mediastinum: Heart size and cardiomediastinal contours are normal. Bones/joints: Unremarkable. IMPRESSION: No active disease in the chest. No consolidation. Dictated and Authenticated by: Umm Pichardo MD. Ordering:KAVON Prince MD
[2024-02-23] MEDS: Lactated Ringers 1,000 ML 125 ML IV ×3 (11:16→21:45)
--- NOTE | 2024-02-23 11:18 | DI.VRAD_ITS ---
PROCEDURE INFORMATION: Exam: CT Abdomen And Pelvis With Contrast Exam date and time: 02/23/2024 10:41 AM Age: 63 years old Clinical indication: Other: Abd pain intermittent lt, diarrhea, g(-) bacteremi TECHNIQUE: Imaging protocol: Computed tomography of the abdomen and pelvis with contrast. Contrast material: OMNIPAQUE 350; Contrast volume: 100 ml; Contrast route: INTRAVENOUS (IV); COMPARISON: CT RENAL COLIC WO 08/28/2023 10:18 AM FINDINGS: Lungs: Minimal linear subsegmental atelectasis in the left lower lobe. No pleural effusions. Liver: Unremarkable. Gallbladder and bile ducts: Unremarkable. No calcified gallstones. No intrahepatic or extrahepatic biliary ductal dilation. Pancreas: Unremarkable. Spleen: Unremarkable. The spleen is normal in size. Adrenal glands: Unremarkable. Kidneys and ureters: There is no hydronephrosis or hydroureter. There is patchy diminished parenchymal enhancement in the left kidney, consistent with pyelonephritis. Left periureteral enhancement is suspicious for a concomitant left ureteritis. Mild bilateral perinephric fat stranding is noted, left greater than right. There are no suspicious renal masses. Nonobstructing calculi are identified in both kidneys, measuring 4 mm in the mid left kidney and approximately 1 mm in the right lower pole. Stomach and bowel: The stomach is nondilated. The small and large bowel are normal in caliber. There are nonspecific air-fluid levels in the right colon. The left colon is largely collapsed/decompressed and therefore not well assessed. Appendix: A nondilated appendix is identified. Intraperitoneal space: No ascites, fluid collection, or pneumoperitoneum. Retroperitoneal space: No retroperitoneal collection or mass. Vasculature: Mild atherosclerotic vascular calcifications. Normal caliber abdominal aorta. Lymph nodes: No pathologically enlarged lymph nodes. Urinary bladder: Nondistended. Contains excreted contrast from the recent chest CTA. Reproductive: Unremarkable as visualized. Bones/joints: Degenerative changes. No suspicious osseous lesions. Soft tissues: Tiny fat-containing umbilical hernia. IMPRESSION: 1. Findings consistent with left upper urinary tract infection (pyelonephritis and ureteritis). 2. Bilateral nonobstructing renal calculi. 3. Additional incidental/nonemergent findings are discussed in the body of the report. Dictated and Authenticated by: Umm Pichardo MD. Ordering:KAVON Prince MD
--- NOTE | 2024-02-23 12:18 | HPE_ITS ---
Date of service: 02/23/24 Time of Service: 12:18 Assessment and Plan Assessment and plan (1) Severe sepsis: Status: Resolved Assessment and plan: meets criteria for severe sepsis with heart rate greater than 90, respiratory rate greater than 20, white blood cell count greater than 12, and creatinine with a greater than 0.3 increased from his baseline of 1.1 source of infection is upper urinary tract infection (2) Pyelonephritis of left kidney: Status: Acute Assessment and plan: Urine cultures are pending, blood culture growing gram-negative rods Given cefepime in the emergency department Will continue ceftriaxone 2 g daily while culture reports pending (3) Gram-negative bacteremia: Status: Acute Assessment and plan: Yesterday's blood cultures both positive for gram-negative rods Repeat cultures from today pending ceftriaxone 2 gm daily anticipate downstep to appropriate oral agent once blood cultures negative to complete a 14 day course (4) RSV bronchitis: Status: Acute Assessment and plan: stable, no oxygen requirements. (5) LORENZO (acute kidney injury): Status: Acute Assessment and plan: creatinine trending down after receiving IV fluids continue hydration baseline 1.1 avoid nephrotoxic drugs renal dosing as needed. (6) Diabetes type 2, controlled: Status: Acute Assessment and plan: diabetic diet (7) HTN (hypertension): Status: Chronic Assessment and plan: blood pressure controlled hold losartan in setting of sepsis and LORENZO monitor and resume when appropriate. Qualifiers: Hypertension type: essential hypertension Qualified Code(s): I10 - Essential (primary) hypertension (8) Hypokalemia: Status: Acute Assessment and plan: replete and follow mag 1.8 yesterday, will repete (9) Discharge planning issues: Status: Acute Assessment and plan: DVT prophylaxis will be teds and enoxaparin daily Anticipated discharge to home with no new services once medically stable Admission discussed with Dr. Alcaraz History of Present Illness History of Present Illness Chief Complaint: positive blood cultures Narrative: This is a 63-year-old male patient past medical history significant for diabetes mellitus type 2 hypertension obesity who presented to the emergency department yesterday with shortness of breath mild chest discomfort that has been ongoing for the past 3 days. His workup in the emergency department showed RSV bronchitis, he had no oxygen requirements maintaining sats of 93 to 95% on room air. Using shared decision making, patient opted for trial of outpatient treatment. Overnight his blood cultures showed gram-negative rods. He was called back for reevaluation still found to be tachycardic at 103, improved since yesterday where he was in the 110s to 120s, stable blood pressures with a systolic of 120- 130, repeat lactate remains within normal limits at 1.2. White count improved from 21 to 13. His blood cultures were repeated today and are pending, ID and sensitivities from yesterday's cultures are still pending. Urine culture from yesterday is still pending but does show pyuria. Imaging of his abdomen and pelvis does show pyelonephritis on the left, hospitalist services was contacted for admission request. He was given cefepime in the emergency department and IV fluids. Review of Systems All systems reviewed & are unremarkable except as noted in HPI and below PFSH All Active Problems Discharge planning issues (Acute) Hypokalemia (Acute) Pyelonephritis of left kidney (Acute) Pyelonephritis (Acute) RSV bronchitis (Acute) Gram-negative bacteremia (Acute) RSV bronchitis (Acute) Acute dehydration (Acute) LORENZO (acute kidney injury) (Acute) Diabetes type 2, controlled (Acute) HTN (hypertension) (Chronic) Ventricular ectopy (Acute) MAX (dyspnea on exertion) (Acute) Morbid obesity (Acute) Numbness of right hand (Acute) History of back surgery (Acute) Surgical History History of carpal tunnel release Right ECTR DOS: 09/24/2022 Left ECTR DOS: 10/08/2022 Failed back surgical syndrome Social History Smoking/Tobacco Use Status: Former Tobacco Use tobacco type: cigarettes Tobacco: How many years used: 15 Second Hand Exposure: Yes Smoking risk assessment performed?: Yes Alcohol Intake: current Alcohol Intake frequency: a few times a month Alcohol type: beer Drug use: Never Substance use type: does not use Details: quit smoking many years ago Housing: house Do you feel safe at home: Yes Do you feel safe in your relationship?: Yes Meds Allergies and Home Medications Allergies Allergy/AdvReac Type Severity Reaction Status Date / Time Penicillins Allergy Unknown Skin Rash Verified 02/23/24 09:57 lisinopril AdvReac Intermediate JOINT PAIN Verified 02/23/24 09:57 metoprolol AdvReac Intermediate Fatigue Verified 02/23/24 09:57 Home Medications Medication Instructions Recorded Confirmed Type inhalational spacing device 01/11/13 02/23/24 History (Aerochamber Plus Flow-Vu,Small Mask) aspirin 81 mg tablet,delayed 81 mg PO DAILY 11/29/19 02/23/24 History release amlodipine 5 mg tablet 5 mg PO DAILY #90 tabs 06/06/23 02/23/24 Rx losartan 100 mg tablet 100 mg PO DAILY #90 tabs 06/06/23 02/23/24 Rx gabapentin 300 mg capsule 300 mg PO DAILY #90 caps 08/05/23 02/23/24 Rx Exam Const General: cooperative and ill appearing acutely Nutritional Appearance: obese Orientation: awake and oriented x3 HENMT Head: normal to inspection, normocephalic and atraumatic Face and sinus: normal facial exam Mouth: oral mucosae normal Chest Chest: normal inspection of the chest Resp Effort & Inspection: normal respiratory effort Auscultation: clear to auscultation bilaterally Cardio Rate: regular rate Rhythm: regular rhythm Heart Sounds: no murmurs GI Inspection: distended and obesity Palpation: firm, no guarding and not rigid Auscultation: normal bowel sounds Skin General skin exam: no rashes or lesions noted Neuro General: patient alert, patient awake and patient oriented x3 Extrem General: normal to inspection and full ROM Results Labs 02/24/24 06:29 02/24/24 06:29 Labs: Laboratory Results - last 24 hr 02/23/24 02/23/24 10:02 10:16 WBC 13.41 H RBC 4.72 Hgb 14.0 Hct 41.5 MCV 88 MCH 29.7 MCHC 33.7 RDW 13.6 Plt Count 232 MPV 9.0 Immature Gran % 0.4 Neutrophils % 90.9 Lymphocytes % 3.7 Monocytes % 4.5 Eosinophils % 0.1 Basophils % 0.4 Nucleated RBC % 0.0 Absolute Neutrophils 12.19 H Absolute Lymphocytes 0.50 L Absolute Monocytes 0.60 Absolute Eosinophils 0.01 Absolute Basophils 0.05 VBG Lactate 1.2 Sodium 136 Potassium 3.3 L Chloride 100 Carbon Dioxide 25.8 Anion Gap 10.2 BUN 23 H Creatinine 1.4 H Est GFR (CKD-EPI 2020) 56.13 Glucose 154 H Calcium 8.9 Total Bilirubin 0.5 AST 30 ALT 32 Alkaline Phosphatase 71 Total Protein 7.9 Albumin 2.9 L Last Vital Signs Temp 36.7 C 02/23/24 09:53 Pulse 103 H 02/23/24 09:53 Resp 22 02/23/24 09:53 BP 127/62 02/23/24 09:53 Pulse Ox 95 02/23/24 09:53 Time Spent Time spent with Patient: >75 minutes Time was spent: preparing to see the patient(eg.review tests), obtaining and/or reviewing separately otained hiistory, ordering medications,tests, procedures, indepentently interpreting results, counseling the patient and care coordination
[2024-02-23 12:58] LABS: Lab Add On Test DONE
[2024-02-23 13:05] LABS: Magnesium 2.1 mg/dL (1.8-2.4)
[2024-02-23 13:34] LABS: Bilirubin Negative (Negative); Blood Large (Negative); Clarity Clear (Clear); Glucose Negative (Negative); Ketones Trace mg/dL (Negative); Leukocyte Esterase Negative (Negative); Nitrite Negative (Negative); Urobilinogen 0.2 mg/dL (Up to 0.2); pH 5.5 (5-8)
[2024-02-23 13:43] LABS: Bacteria Few HPF (Negative); C & S Indicated? Yes; Casts Negative LPF (Negative); Crystals Few Amorphous HPF (Negative); Epithelial Cells Few HPF (Negative); Mucus Moderate (Negative)
[2024-02-23] MEDS: Ketorolac 15 MG/ML VIAL IVP (16:34)
[2024-02-23] MEDS: Acetaminophen 500 MG TAB 1000 MG PO (16:36)
[2024-02-23] MEDS: cefTRIAXone 2 GM/50 ML BAG IVPB (18:09)
[2024-02-24 07:31] LABS: Abs Immature Grans 0.04 10^3/uL (0.0-0.06); Absolute Basophil Count 0.03 10^3/uL (0.0-0.2); Absolute Eosinophil Count 0.03 10^3/uL (0.0-0.7); Absolute Monocyte Count 0.88 10^3/uL (0.1-0.8); Absolute Neutrophil Count 7.19 10^3/uL (1.2-6.7); Basophils % 0.3 %; Eosinophils % 0.3 %; HCT 38.3 % (40.0-50.0); HGB 13.2 g/dL (13.5-17.5); Immature Grans % 0.5 %; Lymphocytes % 7.9 %; MCH 29.9 pg (27.0-33.0); MCHC 34.5 % (32.0-36.0); MCV 87 fL (80-95); MPV 9.8 fL (8.0-11.0); Monocytes % 9.9 %; Neutrophils % 81.1 %; Platelet Count 243 10^3/uL (130-400); RBC 4.41 10^6/uL (4.36-5.78); RDW 13.6 % (11.8-14.1); RDW-SD 43.9 fL; WBC 8.87 10^3/uL (4.4-10.8)
[2024-02-24 08:00] VITALS: BP 110/71; PULSE 99; RESP 20; TEMP 37.8; O2SAT 97
[2024-02-24 08:11] LABS: Anion Gap 12.3 mmol/L (3-11); BUN 22 mg/dL (7-18); CO2 23.7 mmol/L (21.0-32.0); CREATININE 1.1 mg/dL (0.70-1.30); Calcium 8.7 mg/dL (8.5-10.1); Chloride 102 mmol/L (98-107); Estimated GFR 74.96 (mL/min/1.73m2); Glucose 115 mg/dL (74-106); Potassium 3.3 mmol/L (3.5-5.1); Sodium 138 mmol/L (136-145)
[2024-02-24] MEDS: amLODIPine 5 MG TAB PO (08:57)
[2024-02-24] MEDS: Gabapentin 300 MG CAP PO (08:57)
[2024-02-24] MEDS: Aspirin E.C. 81 MG TABEC PO (08:57)
[2024-02-24] MEDS: Normal Saline Flush 10 ML SYR IVP ×4 (08:58→21:30)
[2024-02-24] MEDS: Acetaminophen 325 MG TAB 650 MG PO ×2 (09:15→21:29)
--- NOTE | 2024-02-24 10:12 | PGE_ITS ---
Date of Service Date of service: 02/24/24 Time of Service: 10:12 Assessment and Plan Assessment and plan (1) Severe sepsis: Status: Resolved Assessment and plan: meets criteria for severe sepsis with heart rate greater than 90, respiratory rate greater than 20, white blood cell count greater than 12, and creatinine with a greater than 0.3 increased from his baseline of 1.1 source of infection is upper urinary tract infection (2) Pyelonephritis of left kidney: Status: Acute Assessment and plan: Urine cultures are pending, blood culture growing gram-negative rods Given cefepime in the emergency department Will continue ceftriaxone 2 g daily while culture reports pending (3) Gram-negative bacteremia: Status: Acute Assessment and plan: Yesterday's repeat blood cultures still positive for gram-negative rods (had not received antibiotics yet) Repeat cultures pending for tomorrows am labs continue ceftriaxone 2 gm daily anticipate downstep to appropriate oral agent once blood cultures negative to complete a 14 day course (4) RSV bronchitis: Status: Acute Assessment and plan: stable, no oxygen requirements. (5) LORENZO (acute kidney injury): Status: Acute Assessment and plan: creatinine normalized after receiving IV fluids continue hydration for today, then dc baseline 1.1 avoid nephrotoxic drugs renal dosing as needed. (6) Diabetes type 2, controlled: Status: Acute Assessment and plan: diabetic diet A1C is 5.9 glucose this am 115, no surveillance while hospitalized. (7) HTN (hypertension): Status: Chronic Assessment and plan: blood pressure controlled hold losartan in setting of sepsis and LORENZO monitor and resume when appropriate. Qualifiers: Hypertension type: essential hypertension Qualified Code(s): I10 - Essential (primary) hypertension (8) Hypokalemia: Status: Acute Assessment and plan: replete and follow mag 1.8 yesterday (9) Insomnia: Status: Acute Assessment and plan: will schedule melatonin and ambien (10) Discharge planning issues: Status: Acute Assessment and plan: DVT prophylaxis will be teds and enoxaparin daily Anticipated discharge to home with no new services tomorrow after his dose of ceftriaxone, he's feeling clinically markedly improved discussed with Dr. araujo Subjective Subjective Patient reports: no new complaints, feels better, tolerating liquids well, tolerating a regular diet and afebrile; denies shortness of breath Interval history since last seen: occasional dry cough Objective Last Vital Signs Temp 36.8 C 02/23/24 22:59 Pulse 90 02/23/24 22:59 Resp 22 02/23/24 22:59 BP 115/83 02/23/24 22:59 Pulse Ox 96 02/23/24 22:59 Laboratory Results - last 24 hr 02/23/24 02/23/24 02/23/24 10:02 10:16 13:06 WBC 13.41 H RBC 4.72 Hgb 14.0 Hct 41.5 MCV 88 MCH 29.7 MCHC 33.7 RDW 13.6 Plt Count 232 MPV 9.0 Immature Gran % 0.4 Neutrophils % 90.9 Lymphocytes % 3.7 Monocytes % 4.5 Eosinophils % 0.1 Basophils % 0.4 Nucleated RBC % 0.0 Absolute Neutrophils 12.19 H Absolute Lymphocytes 0.50 L Absolute Monocytes 0.60 Absolute Eosinophils 0.01 Absolute Basophils 0.05 VBG Lactate 1.2 Sodium 136 Potassium 3.3 L Chloride 100 Carbon Dioxide 25.8 Anion Gap 10.2 BUN 23 H Creatinine 1.4 H Est GFR (CKD-EPI 2020) 56.13 Glucose 154 H Calcium 8.9 Magnesium 2.1 Total Bilirubin 0.5 AST 30 ALT 32 Alkaline Phosphatase 71 Total Protein 7.9 Albumin 2.9 L Urine Color Yellow Urine Clarity Clear Urine pH 5.5 Ur Specific [place] 1.010 Urine Protein >=300 H Urine Ketones Trace H Urine Blood Large H Urine Nitrite Negative Urine Bilirubin Negative Urine Urobilinogen 0.2 Ur Leukocyte Esterase Negative Urine RBC 10-20 H Urine WBC 10-20 H Ur Epithelial Cells Few Urine Crystals Few Amorphous Urine Bacteria Few Urine Casts Negative Urine Mucus Moderate Ur Culture Indicated? Yes Urine Glucose Negative Add-On Test Request DONE 02/24/24 06:29 WBC 8.87 RBC 4.41 Hgb 13.2 L Hct 38.3 L MCV 87 MCH 29.9 MCHC 34.5 RDW 13.6 Plt Count 243 MPV 9.8 Immature Gran % 0.5 Neutrophils % 81.1 Lymphocytes % 7.9 Monocytes % 9.9 Eosinophils % 0.3 Basophils % 0.3 Nucleated RBC % 0.0 Absolute Neutrophils 7.19 H Absolute Lymphocytes 0.70 L Absolute Monocytes 0.88 H Absolute Eosinophils 0.03 Absolute Basophils 0.03 VBG Lactate Sodium 138 Potassium 3.3 L Chloride 102 Carbon Dioxide 23.7 Anion Gap 12.3 H BUN 22 H Creatinine 1.1 Est GFR (CKD-EPI 2020) 74.96 Glucose 115 H Calcium 8.7 Magnesium Total Bilirubin AST ALT Alkaline Phosphatase Total Protein Albumin Urine Color Urine Clarity Urine pH Ur Specific [place] Urine Protein Urine Ketones Urine Blood Urine Nitrite Urine Bilirubin Urine Urobilinogen Ur Leukocyte Esterase Urine RBC Urine WBC Ur Epithelial Cells Urine Crystals Urine Bacteria Urine Casts Urine Mucus Ur Culture Indicated? Urine Glucose Add-On Test Request Time Spent with Patient Time Spent with Patient: >50 minutes Time was spent: preparing to see the patient(eg.review tests), obtaining and/or reviewing separately otained hiistory, ordering medications,tests, procedures, indepentently interpreting results and counseling the patient
--- NOTE | 2024-02-24 10:35 | PDOC.CMIN ---
Date of service: 02/24/24 Time of Service: 10:35 Care Management Initial Assmt Initial Assessment Reason for Hospitalization: sepsis Functional Status/Living Situation Patient Presentation: Jose Ramon was lying in bed when CM met with him. He was polite and agreeable to conversation. Jose Ramon shared that he has 2 children, a son and a daughter, who both live locally. 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 Jose Ramon is independent at baseline and does not receive any services. Jose Ramon informed CM that he did not sleep hardly at all last night and is very tired. He feels that if he could go home and get a good night's sleep that he would feel a lot better. CM explained that he will need to remain in the hospital at least until tomorrow to have his blood cultures redrawn. The blood cultures drawn on 02/21 are growing E.Coli but susceptibilities are not known yet. Jose Ramon also has RSV. He stated that he has been sick for about 3 weeks but is starting to feel better. he also stated that he knows he will not be able to return to work until his RSV is gone. 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) Instrumental Activities of Daily Living (ADLs): Independent Activities/Hobbies/SocialSupport: farming Medications Medication Management: No Issues/Barriers identified Physical Functioning/Mobility Assistive Device: none Advance Directives Advance Directives: Do you have an Advance Directive: N 01/06/20 14:46 AD On File at [facility]: N 01/06/20 14:46 Date Asked 02/22/24 02/22/24 13:32 AD Date Reviewed COLST On File at [facility] No 02/23/24 09:53 COLST Date Scanned Code Status Resuscitation Status Full Code Portal Pt does not currently have a portal and education provided: Yes Insurance Coverage/Financial Issues Insurance: [employer] ACO Member: Yes Care Team Visit Care Team Role Provider Type Aubrey Davison NP Primary Care Provider NURSE PRACTITIONER Suresh Peña MD Emergency Provider [facility] STAFF PHYSICIAN Savage Alcaraz Admit Provider [facility] STAFF PHYSICIAN Attending Provider Discharge Potential Discharge Needs: PCP F/U Appt and Other (possible Urology appointment) Anticipated Barriers to Discharge: None Identified Patient/Family Education Needs: Review discharge instructions, discuss Ask Me Three and Other (limitations, follow up plan) Transportation: Private vehicle Plan: Anticipate Bean will be discharged home with no new services when medically cleared. He will follow up with his PCP and plan of care and transport with family. CM will follow and continue to assess for discharge needs. PFSH All Active Problems Discharge planning issues (Acute) Hypokalemia (Acute) Pyelonephritis of left kidney (Acute) Pyelonephritis (Acute) RSV bronchitis (Acute) Gram-negative bacteremia (Acute) RSV bronchitis (Acute) Acute dehydration (Acute) LORENZO (acute kidney injury) (Acute) Diabetes type 2, controlled (Acute) HTN (hypertension) (Chronic) Ventricular ectopy (Acute) MAX (dyspnea on exertion) (Acute) Morbid obesity (Acute) Numbness of right hand (Acute) History of back surgery (Acute) Surgical History History of carpal tunnel release Right ECTR DOS: 09/24/2022 Left ECTR DOS: 10/08/2022 Failed back surgical syndrome Social History Smoking/Tobacco Use Status: Former Tobacco Use tobacco type: cigarettes Tobacco: How many years used: 15 Second Hand Exposure: Yes Smoking risk assessment performed?: Yes Alcohol Intake: current Alcohol Intake frequency: a few times a month Alcohol type: beer Drug use: Never Substance use type: does not use Details: quit smoking many years ago Housing: house Do you feel safe at home: Yes Do you feel safe in your relationship?: Yes SDOH(Care Management) Screening Will the Patient Participate in the Screening?: Yes Do you worry about having a steady place to live?: no In the past 12 months, have you had to go without electric, gas, oil or water in your home?: no Have you or anyone in your house had to go without enough food to eat?: no Has lack of transportation kept you from medical appointments or from doing things needed for daily living?: no Has anyone in your support network made you feel unsafe for any reason?: no
[2024-02-24] MEDS: Enoxaparin 40 MG/0.4 ML SYR SC ×2 (11:45→21:27)
[2024-02-24] MEDS: Potassium Chloride 20 MEQ TABCR PO ×2 (11:45→17:57)
--- NOTE | 2024-02-24 16:54 | PHA.REVIEW2 ---
Pharmacy Admission Review Admission Clinical Review Admission Pharmacy Review: Discharge planning issues (Acute) Hypokalemia (Acute) Pyelonephritis of left kidney (Acute) RSV bronchitis (Acute) Gram-negative bacteremia (Acute) LORENZO (acute kidney injury) (Acute) Diabetes type 2, controlled (Acute) Penicillins Allergy (Unknown, Verified 02/23/24 09:57) Skin Rash lisinopril Adverse Reaction (Intermediate, Verified 02/23/24 09:57) JOINT PAIN metoprolol Adverse Reaction (Intermediate, Verified 02/23/24 09:57) Fatigue Resuscitation Status Full Code Height 5 ft 6 in Weight 132 kg Pharmacy Admission Review Renal Dosing Renal Dosing: BUN 22 mg/dL (7-18) H 02/24/24 06:29 Creatinine 1.1 mg/dL (0.70-1.30) 02/24/24 06:29 Medications needing adjustments: Reviewed (CrCl 87.4 mL/min) List of meds needing interventions: Current medications are okay Anticoagulation Anticoagulation: Hgb 13.2 g/dL (13.5-17.5) L 02/24/24 06:29 Hct 38.3 % (40.0-50.0) L 02/24/24 06:29 Plt Count 243 10^3/uL (130-400) 02/24/24 06:29 Creatinine 1.1 mg/dL (0.70-1.30) 02/24/24 06:29 DVT Prophylaxis: Intervened (Reached out to provider as progress note yesterday mentioned enoxaparin but no order was put in. Provider put in new order for enoxaparin 40mg daily. Changed to BID due to BMI of 47) Medications: Enoxaparin (40mg daily) Relevant Labs Relevant Labs: Sodium 138 mmol/L (136-145) 02/24/24 06:29 Potassium 3.3 mmol/L (3.5-5.1) L 02/24/24 06:29 Chloride 102 mmol/L (98-107) 02/24/24 06:29 Magnesium 2.1 mg/dL (1.8-2.4) 02/23/24 10:02 Electrolytes, C-Reactive P, ESR: Reviewed (K 3.3 - repleting, Hgb decreased from 14 to 13.2) DM Control DM Control: Glucose 115 mg/dL (74-106) H 02/24/24 06:29 DM Control: Reviewed Insulin Dosing, Diabetic Medication: Controlled - no medications Cardiac Review BP, HR, EF%: Reviewed (BP WNL, HR 99) QTc Review QTc: Reviewed (421 from 02/22/24) IV to PO Switch IV Medications: Reviewed (ceftriaxone) Home Meds Home Med List reviewed: Reviewed Relevent Home Meds Not ordered & why?: Losartan (on hold per H+P) Current Meds Current Medication Order Review: Intervened Comments: Added IV admission order set Pharmacy Antibiotic Review Relevant Labs: WBC 8.87 10^3/uL (4.4-10.8) 02/24/24 06:29 Temperature 37.8 C 0800 Microbiology 02/23/24 13:06 Urine Culture - Preliminary Urine - Reflex from Ua 02/23/24 10:10 Blood Culture - Preliminary Blood Escherichia coli 02/23/24 10:02 Blood Culture - Preliminary Blood NO GROWTH 24 HOURS Pharmacy Antibiotic Activity: C/S review and Reviewed, no change Comments: Patient is on ceftriaxone day 2 for pyelonephritis. Blood and urine cultures growing E. coli.
[2024-02-24] MEDS: cefTRIAXone 2 GM/50 ML BAG IVPB (17:58)
[2024-02-24] MEDS: Melatonin 3 MG TAB 6 MG PO (21:28)
[2024-02-24 21:39] VITALS: BP 124/75; PULSE 97; RESP 18; TEMP 36.8; O2SAT 96
[2024-02-25 05:42] VITALS: BP 113/62; PULSE 85; RESP 18; TEMP 36.3; O2SAT 97
[2024-02-25] MEDS: Normal Saline Flush 10 ML SYR IVP ×3 (05:44→17:09)
[2024-02-25 07:48] VITALS: BP 117/65; PULSE 83; RESP 18; TEMP 36.8; O2SAT 94
[2024-02-25 07:55] LABS: Abs Immature Grans 0.06 10^3/uL (0.0-0.06); Absolute Basophil Count 0.04 10^3/uL (0.0-0.2); Absolute Eosinophil Count 0.07 10^3/uL (0.0-0.7); Absolute Lymphocyte Count 1.06 10^3/uL (1.2-3.4); Absolute Monocyte Count 1.06 10^3/uL (0.1-0.8); Absolute Neutrophil Count 7.01 10^3/uL (1.2-6.7); Basophils % 0.4 %; Eosinophils % 0.8 %; HCT 37.7 % (40.0-50.0); HGB 12.9 g/dL (13.5-17.5); Immature Grans % 0.6 %; Lymphocytes % 11.4 %; MCH 29.7 pg (27.0-33.0); MCHC 34.2 % (32.0-36.0); MCV 87 fL (80-95); MPV 10.1 fL (8.0-11.0); Monocytes % 11.4 %; Neutrophils % 75.4 %; Platelet Count 271 10^3/uL (130-400); RBC 4.34 10^6/uL (4.36-5.78); RDW 14.1 % (11.8-14.1); RDW-SD 45.6 fL
[2024-02-25 08:16] LABS: Anion Gap 9.3 mmol/L (3-11); BUN 19 mg/dL (7-18); CO2 25.7 mmol/L (21.0-32.0); Calcium 8.4 mg/dL (8.5-10.1); Chloride 103 mmol/L (98-107); Estimated GFR 84.05 (mL/min/1.73m2); Glucose 108 mg/dL (74-106); Potassium 3.4 mmol/L (3.5-5.1); Sodium 138 mmol/L (136-145)
--- NOTE | 2024-02-25 09:23 | W.PM.PROGNOT ---
Date of Service Date of service: 02/25/24 Time of Service: 12:48 Assessment and Plan Assessment and plan (1) Severe sepsis: Status: Resolved Assessment and plan: Criteria met on admission: - heart rate greater than 90, respiratory rate greater than 20, white blood cell count greater than 12, and Cr. with a greater than 0.3 increased from his baseline of 1.1 -source of infection is upper urinary tract infection (2) Pyelonephritis of left kidney: Status: Acute Assessment and plan: On IV ceftriaxone 2gm daily Urine cultures: E coli Blood culture: E. Coli (3) Gram-negative bacteremia: Status: Acute Assessment and plan: As above Repeat cultures pending for negative results Anticipate discharge on appropriate oral agent once blood cultures negative to complete a 14 day course (4) RSV bronchitis: Status: Acute Assessment and plan: No oxygen requirements, no exacerbation (5) LORENZO (acute kidney injury): Status: Acute Assessment and plan: Creatinine at baseline s/p IV fluids encourage oral fluid intake (6) Diabetes type 2, controlled: Status: Acute Assessment and plan: Continue diabetic diet A1C is 5.9 glucose this am 108, no surveillance while hospitalized. (7) HTN (hypertension): Status: Chronic Assessment and plan: blood pressure controlled Losartan held in setting of sepsis and LORENZO but resumed Qualifiers: Hypertension type: essential hypertension Qualified Code(s): I10 - Essential (primary) hypertension (8) Hypokalemia: Status: Acute Assessment and plan: K 3.4 oral repletion completed and BMP in AM mag 2.1 on 02/22 (9) Insomnia: Status: Acute Assessment and plan: On schedule melatonin and ambien (10) Discharge planning issues: Status: Acute Assessment and plan: DVT prophylaxis will be teds and enoxaparin daily Anticipated discharge to home with no new services when repeat blood cultures are negtive discussed with Dr. araujo Objective Last Vital Signs Temp 36.8 C 02/25/24 07:48 Pulse 83 02/25/24 07:48 Resp 18 02/25/24 07:48 BP 117/65 02/25/24 07:48 Pulse Ox 94 02/25/24 07:48 Laboratory Results - last 24 hr 02/25/24 06:45 WBC 9.30 RBC 4.34 L Hgb 12.9 L Hct 37.7 L MCV 87 MCH 29.7 MCHC 34.2 RDW 14.1 Plt Count 271 MPV 10.1 Immature Gran % 0.6 Neutrophils % 75.4 Lymphocytes % 11.4 Monocytes % 11.4 Eosinophils % 0.8 Basophils % 0.4 Nucleated RBC % 0.0 Absolute Neutrophils 7.01 H Absolute Lymphocytes 1.06 L Absolute Monocytes 1.06 H Absolute Eosinophils 0.07 Absolute Basophils 0.04 Sodium 138 Potassium 3.4 L Chloride 103 Carbon Dioxide 25.7 Anion Gap 9.3 BUN 19 H Creatinine 1.0 Est GFR (CKD-EPI 2020) 84.05 Glucose 108 H Calcium 8.4 L
[2024-02-25] MEDS: Enoxaparin 40 MG/0.4 ML SYR SC (09:35)
[2024-02-25] MEDS: Potassium Chloride 20 MEQ TABCR 40 MEQ PO (09:35)
[2024-02-25] MEDS: Gabapentin 300 MG CAP PO (09:36)
[2024-02-25] MEDS: amLODIPine 5 MG TAB PO (09:36)
[2024-02-25] MEDS: Aspirin E.C. 81 MG TABEC PO (09:36)
[2024-02-25] MEDS: Potassium Chloride 20 MEQ TABCR PO ×2 (09:37→12:01)
[2024-02-25] MEDS: Acetaminophen 325 MG TAB 650 MG PO ×2 (09:41→15:54)
[2024-02-25 15:49] VITALS: BP 127/85; PULSE 84; RESP 17; TEMP 36.6; O2SAT 97
[2024-02-25] MEDS: cefTRIAXone 2 GM/50 ML BAG IVPB (17:08)
--- NOTE | 2024-02-25 17:22 | DSE_ITS ---
Date of service: 02/25/24 Time of Service: 17:23 DS: Diagnosis Discharge Diagnosis (1) Severe sepsis: Status: Resolved (2) Pyelonephritis of left kidney: Status: Acute (3) Gram-negative bacteremia: Status: Acute (4) RSV bronchitis: Status: Acute (5) LORENZO (acute kidney injury): Status: Acute (6) Diabetes type 2, controlled: Status: Acute (7) HTN (hypertension): Status: Chronic (8) Hypokalemia: Status: Acute (9) Insomnia: Status: Acute (10) Discharge planning issues: Status: Acute Discharge Plan Disposition Patient Disposition: Against Medical Advice Condition: Serious Condition: Improving Discharge Details Reason For Visit: pyelonephritis Admit Date/Time: 02/23/24 11:41 Admit Provider: Savage Alcaraz Attending Provider: Savage Alcaraz Primary Care Provider: Aubrey Walker Hospital Course Hospital Course: This 63 years old male patient with past medical history of diabetes mellitus type 2, hypertension, obesity presented to the ED and arranged on 02/03/2024 for evaluation of shortness of breath and mild chest discomfort for the prior3 days. Workup in the emergency room showed RSV bronchitis without oxygen requirements with sats around 93 to 95% on room air with shared decision making to treat as an outpatient. Blood cultures came back positive for gram-negative rods overnight and the patient was called back for reevaluation. The patient was tachycardic at 103, blood pressure was 02/27/2022 130 systolic, and lactate was at 1.2 with a WBC improving from 21-13. Urine cultures were still pending but shows pyuria. Imaging showed left pyelonephritis. The hospitalist was consulted and the patient was admitted for on the medical surgical floor for evaluation and management of UTI, sepsis, pyelonephritis, LORENZO, and RSV bronchitis. In the emergency department the patient was started on cefepime and IV fluids. During the stay the patient received IV ceftriaxone. Losartan was held in the setting of LORENZO. LORENZO resolved with creatinine returning to 1.0. Microbiology showed E. coli in the urine and in the blood. Repeat blood cultures was ordered on 02/24/2024, results were pending but the patient elected to go home on oral antibiotics without waiting for the negative blood culture result as requested by the provider. The patient understands that there is a risk that is blood cultures resulted in positive findings of pathogen and elected to leave [place]. The patient will be on cefpodoxime 400 mg oral twice daily to complete a 14-day total course of antibiotics for gram-negative bacteremia. Probiotics were added to his discharge. The patient will be able to resume his home meds. The patient will need to follow-up with his PCP within 7 days of discharge. The patient reported as being had kidney stones in the past but and an outpatient referral for urology was made in the setting where the patient had pyelonephritis. Discussed with Dr. Queen Home Meds and New Rx's Prescriptions: New cefpodoxime 200 mg tablet 400 mg PO Q12H Qty: 44 0RF Rx Instructions: must administer with a meal/food Bio-K plus 50 billion cell capsule,delayed release(DR/EC) 1 cap PO DAILY Qty: 11 0RF Continued aspirin 81 mg tablet,delayed release (DR/EC) 81 mg PO DAILY Hold Instructions: Resume on 09/03/23. Hold aspirin while taking Ketorlac gabapentin 300 mg capsule 300 mg PO DAILY Qty: 90 4RF (DME) Aerochamber Plus Flow-Vu,S Msk 1 EACH spacer 1 ea Miscellaneous QID Rx Instructions: WITH LARGE MASK amlodipine 5 mg tablet 5 mg PO DAILY Qty: 90 3RF losartan 100 mg tablet 100 mg PO DAILY Qty: 90 3RF Discharge Instructions Referrals: Aubrey Walker [employer] [Primary Care Provider] - (f/u within a week please) Bipin Strange MD [ [facility] STAFF PHYSICIAN] - (UTI with reported history of kidney stone, reported no urologist.) Activity:: Activity as Tolerated Equipment/Supplies:: No Equipment Needed Diet:: heart healthy diabetic Discharge Orders Discharge Orders: Discharge Order (Routine); Ordered 02/25/24 Ordered By: Shawnee Davila DS: Summary Time Spent with Patient providing and/or coordinating discharge services: Greater than 30 minutes Status at Discharge Functional status at discharge: independent ambulation Overall status at discharge: patient is progressing back to baseline Mental Status: mental status grossly normal Speech and Movement: speech and movement normal Mood: congruent mood Affect: normal affect Quality:SDOH Health Related Social Needs: No Data to Display Exam Psych Mental Status: mental status grossly normal Speech and Movement: speech and movement normal Mood: congruent mood Affect: normal affect DS: Data Vitals/I&O Vitals and I&O: Vital Signs Temperature 36.6 C 02/25/24 15:49 Temperature Source Tympanic 02/25/24 15:49 Pulse 84 02/25/24 15:49 Pulse Rhythm Irregular 02/25/24 11:47 Pulse 87 02/23/24 12:31 Respiratory Rate 17 02/25/24 15:49 Respiratory Effort Normal, Non-Labored 02/25/24 11:47 Respiratory Depth Normal 02/25/24 11:47 Respiratory Pattern Normal 02/25/24 11:47 Blood Pressure 127/85 02/25/24 15:49 Blood Pressure Mean 86 02/23/24 12:31 Blood Pressure Position Sitting 02/23/24 12:39 Pulse Oximetry 97 02/25/24 15:49 Oxygen Delivery Method Room Air 02/25/24 15:49 Oxygen Flow Rate 0 02/25/24 15:49 Pain Level 5 02/25/24 15:54 Comment Pt is sleeping at this time and does not want to be awakened. 23:45 Intake & Output 02/24/24 02/25/24 02/25/24 23:59 11:59 23:59 Intake Total 1060 / 2370 370 / 370 Balance 1060 / 2370 370 / 370 Intake: IV 60 / 1070 10 / 10 Oral 1000 / 1300 360 / 360 Other: Urine Color Yellow Pale Urine Appearance Clear Clear Urine Odor Normal Normal Comment ind Stool Size Moderate Moderate Stool Characteristics Soft Soft Formed Formed Voiding Methods Toilet Toilet Toilet Data Completed and Pending Labs on day of discharge: Labs from last 24 hours 02/25/24 06:45 WBC 9.30 RBC 4.34 L Hgb 12.9 L Hct 37.7 L MCV 87 MCH 29.7 MCHC 34.2 RDW 14.1 Plt Count 271 MPV 10.1 Immature Gran % 0.6 Neutrophils % 75.4 Lymphocytes % 11.4 Monocytes % 11.4 Eosinophils % 0.8 Basophils % 0.4 Nucleated RBC % 0.0 Absolute Neutrophils 7.01 H Absolute Lymphocytes 1.06 L Absolute Monocytes 1.06 H Absolute Eosinophils 0.07 Absolute Basophils 0.04 Sodium 138 Potassium 3.4 L Chloride 103 Carbon Dioxide 25.7 Anion Gap 9.3 BUN 19 H Creatinine 1.0 Est GFR (CKD-EPI 2020) 84.05 Glucose 108 H Calcium 8.4 L 02/24/24 22:10 Blood Blood Culture - Pending 02/24/24 17:48 Blood Blood Culture - Pending Preliminary micro results at discharge 02/23/24 10:02 Blood Culture - Preliminary Blood NO GROWTH 48 HOURS 02/23/24 10:10 Blood Culture - Preliminary Blood Escherichia coli 02/24/24 22:10 Blood Culture - Pending Blood 02/24/24 17:48 Blood Culture - Pending Blood PFSH All Active Problems Insomnia (Acute) Discharge planning issues (Acute) Hypokalemia (Acute) Pyelonephritis of left kidney (Acute) Pyelonephritis (Acute) RSV bronchitis (Acute) Gram-negative bacteremia (Acute) RSV bronchitis (Acute) Acute dehydration (Acute) LORENZO (acute kidney injury) (Acute) Diabetes type 2, controlled (Acute) HTN (hypertension) (Chronic) Ventricular ectopy (Acute) MAX (dyspnea on exertion) (Acute) Morbid obesity (Acute) Numbness of right hand (Acute) History of back surgery (Acute) Surgical History History of carpal tunnel release Right ECTR DOS: 09/24/2022 Left ECTR DOS: 10/08/2022 Failed back surgical syndrome Social History Smoking/Tobacco Use Status: Former Tobacco Use tobacco type: cigarettes Tobacco: How many years used: 15 Second Hand Exposure: Yes Smoking risk assessment performed?: Yes Alcohol Intake: current Alcohol Intake frequency: a few times a month Alcohol type: beer Drug use: Never Substance use type: does not use Details: quit smoking many years ago Housing: house Do you feel safe at home: Yes Do you feel safe in your relationship?: Yes Time Spent with Patient Time Spent with Patient: 70-84 minutes4 Time was spent: preparing to see the patient(eg.review tests), obtaining and/or reviewing separately otained hiistory, ordering medications,tests, procedures, referring, communicating with other health transitions rn care coordinator, indepentently interpreting results, counseling the patient and care coordination
--- NOTE | 2024-02-25 18:21 | NUR.NOTE ---
Nursing Note: Pt left AMA with son, has all personal belongings and has no questions regarding DC, ambulated to main entrance with this nurse
--- NOTE | 2024-02-26 08:18 | PDOC.CMDIS ---
Date of service: 02/26/24 Time of Service: 08:18 LACE Index Scoring Tool Questions: Length of Stay (in days): 2 Was the patient admitted via the E.D.?: Yes Comorbidities: Diabetes w/o Complication E.D. Visits: 4 Answers: Total Score: 10 Risk of Readmission: High Risk Care Management Discharge Plan Reason for Hospitalization: Pyelonephritis Discharge Plan: Jose Ramon will be discharged home with no new services. He will follow up with his community providers and plan of care and transport with family. Patient/Family Education Needs: Review discharge instructions, discuss Ask Me Three and Other (limitations, follow up plan) SDOH Health Related Social Needs: No Data to Display
== END 2024-02-25 18:13 | disposition left against medical advice (07) | DRG 872 ==
LOC: ER 11:34 → MS 13:01
PROVIDERS: Nurse Practitioner Acute Care; Admitting Provider Family Medicine; Emergency Provider Student in an Organized Health Care Education/Training Program; PCP Nurse Practitioner Family; Visit Provider Family Medicine
DX: A41.51 Sepsis due to Escherichia coli [E. coli] (principal); N10 Acute pyelonephritis; Z68.42 Body mass index [BMI] 45.0-49.9, adult; N17.9 Acute kidney failure, unspecified; R65.20 Severe sepsis without septic shock; J20.5 Acute bronchitis due to respiratory syncytial virus; I10 Essential (primary) hypertension; E11.9 Type 2 diabetes mellitus without complications; E87.6 Hypokalemia; E66.01 Morbid (severe) obesity due to excess calories; E86.0 Dehydration; R20.2 Paresthesia of skin
CPT/HCPCS: 00123; 36415; 80048; 80053; 87040; 96361; 96365; 99285; J1650; 71046; 74177; 81003; 81015; 83605; 83735; 85025; 87086; 99222; 99233; 99239; J0692; J0696; J1885; J3490

== ENCOUNTER → 2024-03-01 08:41 | Outpatient (BNVA) | payer OTHER, SELFPAY | PROVIDERS: PCP Nurse Practitioner Family; Referring Provider Nurse Practitioner Family; Visit Provider Nurse Practitioner Gerontology | DX: N20.0 Calculus of kidney (principal) | CPT/HCPCS: 99215 ==

== ENCOUNTER 2024-05-10 10:14 | Outpatient (REF) | payer OTHER, SELFPAY ==
[2024-05-10 12:18] LABS: HCT 42.8 % (40.0-50.0); HGB 14.4 g/dL (13.5-17.5); MCH 30.2 pg (27.0-33.0); MCHC 33.6 % (32.0-36.0); MCV 90 fL (80-95); MPV 9.2 fL (8.0-11.0); Platelet Count 296 10^3/uL (130-400); RBC 4.77 10^6/uL (4.36-5.78); RDW 14.1 % (11.8-14.1); RDW-SD 46.8 fL
[2024-05-10 12:56] LABS: TSH (W/Ref FT4) 0.99 uIU/mL (0.36-3.74)
== END 2024-05-10 10:15 | disposition home or self-care (01) ==
LOC: LBN 10:14
PROVIDERS: PCP Nurse Practitioner Family; Visit Provider Nurse Practitioner Family
DX: R53.83 Other fatigue (principal)
CPT/HCPCS: 85027; 84443

== ENCOUNTER 2025-02-15 08:59 | Outpatient (CLI) | payer MEDICARE, SELFPAY ==
[2025-02-15 12:33] LABS: Hemoglobin A1C 5.7 % (<5.7)
[2025-02-15 12:35] LABS: ALT 32 U/L (16-63); AST 18 U/L (15-37); Albumin 4.2 g/dL (3.4-5.0); Alkaline Phosphatase 76 U/L (46-116); BUN 24 mg/dL (7-18); Bilirubin, Total 0.4 mg/dL (0.2-1.0); Calcium 9.2 mg/dL (8.5-10.1); Chloride 104 mmol/L (98-107); Estimated GFR 83.52 (mL/min/1.73m2); Glucose 112 mg/dL (74-106); Potassium 4.2 mmol/L (3.5-5.1); Sodium 141 mmol/L (136-145); Total Protein 7.8 g/dL (6.4-8.2)
[2025-02-15 20:11] LABS: PSA, Diagnostic 0.7 ng/mL (<=4.5)
== END 2025-02-15 09:00 | disposition home or self-care (01) ==
PROVIDERS: PCP Nurse Practitioner Family; Referring Provider Nurse Practitioner Family; Visit Provider Nurse Practitioner Family
DX: E11.9 Type 2 diabetes mellitus without complications (principal); R35.0 Frequency of micturition
CPT/HCPCS: 36415; 80053; 83036; 84153

== ENCOUNTER 2025-02-24 11:12 | Emergency (ER) | payer MEDICARE, SELFPAY ==
[2025-02-24 11:16] VITALS: BP 171/91; PULSE 106; RESP 20; TEMP 36.6; O2SAT 95
[2025-02-24 11:19] VITALS: BP 171/91; PULSE 106; RESP 20; TEMP 36.6; O2SAT 95
--- NOTE | 2025-02-24 11:30 | DI.CT_ITS ---
Exam(s) CT ABDOMEN PELVIS WO EXAM: CT ABDOMEN PELVIS WO CLINICAL HISTORY: Left flank pain history of ureterolithiasis. TECHNIQUE: Imaging Protocol: Axial computed tomography images with coronal and sagittal reformatted images were created and reviewed CONTRAST MATERIAL: Intravenous: none Oral: None COMPARISON: CT CT ABDOMEN PELVIS W from 02/23/2024 FINDINGS: VISUALIZED LUNG BASES: No nodules nor pleural effusions evident. ABDOMEN: GI: There is no ascites. No evidence of bowel obstruction, free air, nor abscess. LIVER: There are no obvious focal hepatic lesions evident of this noninfused study. GALLBLADDER/BILIARY: No obvious gallbladder pathology. CBD is not dilated. PANCREAS: No evidence of pancreatic mass nor dilatation of the pancreatic duct. SPLEEN: Spleen is not enlarged. No obvious intrasplenic lesions. ADRENALS: There are no significant adrenal masses. KIDNEYS:Previously present calculus in left kidney as now migrated caudally and is presently within t he urinary bladder lumen and immediately adjacent to the left ureterovesical junction and there is so me edema at the wall at this level. This calculus measures 6 mm. No other calculi in the bladder an d ureter. Ureter is no longer dilated but there is some streaking around the ipsilateral left kidney and ureter. In the opposite-right kidney there are 4 smaller nonobstructive intrarenal calculi aver aging 2-3 mm size. The right ureter is not dilated. No solid renal masses nor significant cysts. ABDOMINAL AORTA: Abdominal aorta is not enlarged. LYMPH NODES: There is no retroperitoneal nor paraaortic adenopathy. ABDOMINAL WALL: No evidence of significant anterior abdominal wall nor inguinal hernia. GI: There is no evidence of bowel obstruction, free air, nor abscess. PELVIS: LYMPH NODES: There is no intrapelvic nor inguinal adenopathy. GI: No evidence of appendicitis.No evidence of sigmoid diverticulitis. URINARY BLADDER: Intraluminal calculus as above. REPRODUCTIVE: Prostate size normal. Seminal vesicles unremarkable. OSSEOUS: No significant osseous lesions. No fractures. Multilevel chronic degenerative disc disease L4-5 and L5-S1 level. There appears to b e a disc herniation at L4-5 level. There is a Schmorl's node invagination in the mid level of the stuart perior endplate of L3 vertebral body noted. This was not evident [address] scan of January 2024. IMPRESSION: 1. Compared to the prior CT scan of January 2024 the previously present 6 millimeter calculus has now pinky rated down the ureter into the urinary bladder. It is within the urinary bladder lumen just distal t o the left UVJ. There are no remaining calculi in left kidney. There are 4 smaller 2-3 mm nonobstru ctive calculi in the opposite-right kidney. 2. There is a small as node invagination in the superior endplate of L3 vertebral body which was not evident 1 year ago. Called by myself to ER physician 02/24/2025 at 1:08 p.m. RADIATION DOSE DELIVERED: 1,238.12mGy.cm Total DLP DATA REPOSITORY: All CT scans at this facility are submitted to the National Radiology Data Registry (NRDR) Dose Index Registry (DIR) with the [employer] (ACR). RADIATION OPTIMIZATION: All CT scans at this facility use at least one of these dose optimization te chniques: automated exposure control; mA and/or kV adjustment per patient size (includes targeted exa ms where dose is matched to clinical indication); or iterative reconstruction.
[2025-02-24] MEDS: Ketorolac 15 MG/ML VIAL IVP (12:11)
[2025-02-24] MEDS: Normal Saline 500 ML 1000 ML IV (12:11)
[2025-02-24 12:15] LABS: Abs Immature Grans 0.03 10^3/uL (0.0-0.06); Absolute Basophil Count 0.06 10^3/uL (0.0-0.2); Absolute Eosinophil Count 0.04 10^3/uL (0.0-0.7); Absolute Lymphocyte Count 1.08 10^3/uL (1.2-3.4); Absolute Monocyte Count 0.54 10^3/uL (0.1-0.8); Absolute Neutrophil Count 5.65 10^3/uL (1.2-6.7); Basophils % 0.8 %; Eosinophils % 0.5 %; HCT 47.3 % (40.0-50.0); HGB 15.7 g/dL (13.5-17.5); Immature Grans % 0.4 %; Lymphocytes % 14.6 %; MCH 29.7 pg (27.0-33.0); MCHC 33.2 % (32.0-36.0); MCV 89 fL (80-95); MPV 8.6 fL (8.0-11.0); Monocytes % 7.3 %; Neutrophils % 76.4 %; Platelet Count 294 10^3/uL (130-400); RBC 5.29 10^6/uL (4.36-5.78); RDW 13.5 % (11.8-14.1); RDW-SD 44.2 fL
--- NOTE | 2025-02-24 12:29 | ED.GENADUL_ITS ---
Discharge Plan Disposition Patient Disposition: Home Discharge Details Clinical Impression: Ureterolithiasis, Left flank pain Primary Care Provider: Aubrey Walker ED Provider: Savage Blancas Home Meds and New Rx's Prescriptions: Continued aspirin 81 mg tablet,delayed release (DR/EC) 81 mg PO DAILY amlodipine 5 mg tablet 5 mg PO DAILY Qty: 90 3RF losartan 100 mg tablet 100 mg PO DAILY Qty: 90 3RF tamsulosin 0.4 mg capsule 0.4 mg PO DAILY Qty: 90 4RF (DME) Aerochamber Plus Flow-Vu,S Msk 1 EACH spacer 1 ea Miscellaneous QID Rx Instructions: WITH LARGE MASK Discharge Instructions Instructions: Kidney stone diet Additional Instructions: You were seen in the emergency department for your flank pain. You have a 6 mm kidney stone that just passed into your bladder. Your pain should be nearly all resolved. Please call the urology team for follow-up. Please return to the emergency department if you develop nausea vomiting chest pain or shortness of breath. For your pain please take medications as follows: 1. Take acetaminophen (Tylenol), 1,000 mg (two 500 mg tabs) every 6 hours [2. Take ibuprofen (Advil), 400 mg every 6 hours.] Referrals: [facility] [Provider Group] Discharge Data Discharge Date/Time-TO BE ENTERED AT DEPARTURE: 02/24/25 15:03 HPI General Date/Time Provider Initiated Documentation: 02/24/25 11:34 . HPI Narrative: MDM This is an uncomfortable appearing tachycardic but normothermic 64-year-old male with flank pain, history of nephrolithiasis and presentation concerning for ureterolithiasis. Patient is over 65 and does have a history of hypertension diabetes so AAA is also on the differential. No pain out of proportion to suggest necrotizing soft tissue infection. No left lower quadrant tenderness nor diarrhea to suggest diverticulitis. No right lower quadrant tenderness to suggest appendicitis. No midline thoracic spinal tenderness nor loss of bowel or bladder control to suggest thoracic vertebral fracture. No dysuria nor frequency to suggest UTI however we will order urinalysis. No chest pain to suggest ACS so we will defer ECG. No rash to back to suggest zoster. No erythema to suggest cellulitis. No fluctuance to suggest abscess. Clear equal breath sounds so doubt pneumothorax. Will attempt treatment with ketorolac and 500 cc of crystalloid. Will reassess. 02/25 Late charting due to patient care. Patien had a 6 mm stone noted in the bladder, just distal to the UVJ. I reassessed patient. He felt markedly improved. He had no ongoing pain. He had no LORENZO, no electrolyte abnormalities, and no leukocytosis. His UA was not consistent w/infection. I spoke w/Dr. Strange from urology who will help to arrange outpt fu. I provided the patient w/a strainer. We discussed oral analgesia prn w/ibuprofen & acetaminophen. We discussed return indications of fever, recurrent pain, nausea, vomiting, dysuria and hematuria. Patient understood return indications and was discharged w/an empiric trial of expectant outpatient mangement. History of Present Illness The patient presents for evaluation of left flank pain. He reports the onset of left flank pain this morning, which he describes as more severe than previous episodes. He did not experience any falls or injuries and was feeling well last night except for backache. The pain radiates downwards into his groin. He is uncertain about the presence of fever but notes elevated blood pressure. He reports occasional tingling during urination but has not observed any blood in his urine. He does not experience any chest pain or shortness of breath. He has a history of kidney stones, with the most recent episode occurring a few years ago, which resolved spontaneously without surgical intervention. Supplemental Information He had L4 and L5 surgery for cracked disc in 1990. Exam General: Uncomfortable-appearing in no acute distress speaking in complete sentences. Intermittently standing up to pace. Granddaughter w/patient. Head: Normocephalic, atraumatic. Eye: Extraocular eye movements intact. No conjunctival injection. No scleral icterus. Ear, nose, mouth, throat: Grossly normal inspection. Normal voice, handling secretions normally. Neck: Trachea midline. Cardiovascular: Well-perfused distal extremities. Rapid regular rate rhythm Respiratory: Nonlabored respiration. Clear lungs bilaterally. Gastrointestinal: Nondistended abdomen. Soft abdomen. Back: No midline thoracic or lumbar spinal tenderness. Patient has mild tenderness on the left CVA. No rash to back. Musculoskeletal: No edema. Moving all 4 extremities spontaneously. Neurologic: Alert and appropriate, no apparent acute deficits. Related Data Home Medications ?Medication ?Instructions ?Recorded ?Confirmed inhalational spacing device 01/11/13 02/24/25 (Aerochamber Plus Flow-Vu,Small Mask) aspirin 81 mg tablet,delayed 81 mg PO DAILY 11/29/19 02/24/25 release amlodipine 5 mg tablet 5 mg PO DAILY #90 tabs 05/10/24 02/24/25 losartan 100 mg tablet 100 mg PO DAILY #90 tabs 05/10/24 02/24/25 tamsulosin 0.4 mg capsule 0.4 mg PO DAILY #90 caps 02/15/25 02/24/25 Previous Rx's ?Medication ?Instructions ?Recorded amlodipine 5 mg tablet 5 mg PO DAILY #90 tabs 05/10/24 losartan 100 mg tablet 100 mg PO DAILY #90 tabs 05/10/24 tamsulosin 0.4 mg capsule 0.4 mg PO DAILY #90 caps 02/15/25 Allergies Allergy/AdvReac Type Severity Reaction Status Date / Time Penicillins Allergy Unknown Skin Rash Verified 02/24/25 11:20 lisinopril AdvReac Intermediate JOINT PAIN Verified 02/24/25 11:20 metoprolol AdvReac Intermediate Fatigue Verified 02/24/25 11:20 General Stated Complaint: Urinary CHARLES: 3 Course Vital Signs Vital signs: Vital Signs Temperature 36.6 C 02/24/25 11:16 Pulse 106 H 02/24/25 11:16 Respiratory Rate 20 02/24/25 11:16 Blood Pressure 171/91 H 02/24/25 11:16 Pulse Oximetry 95 02/24/25 11:16 Temperature 36.6 C 02/24/25 11:19 Pulse 106 H 02/24/25 11:19 Respiratory Rate 20 02/24/25 11:19 Blood Pressure 171/91 H 02/24/25 11:19 Blood Pressure Position Sitting 02/24/25 11:19 Pulse Oximetry 95 02/24/25 11:19 Oxygen Delivery Method Room Air 02/24/25 11:19 Oxygen Flow Rate 0 02/24/25 11:19 Lab/Test Results Lab/Test Results: Laboratory Tests Range/Units 02/24/25 12:08 WBC (4.4-10.8) 10^3/uL 7.40 RBC (4.36-5.78) 10^6/uL 5.29 Hgb (13.5-17.5) g/dL 15.7 Hct (40.0-50.0) % 47.3 MCV (80-95) fL 89 MCH (27.0-33.0) pg 29.7 MCHC (32.0-36.0) % 33.2 RDW (11.8-14.1) % 13.5 Plt Count (130-400) 10^3/uL 294 MPV (8.0-11.0) fL 8.6 Immature Gran % % 0.4 Neutrophils % % 76.4 Lymphocytes % % 14.6 Monocytes % % 7.3 Eosinophils % % 0.5 Basophils % % 0.8 Nucleated RBC % (0.0-0.3) % 0.0 Absolute Neutrophils (1.2-6.7) 10^3/uL 5.65 Absolute Lymphocytes (1.2-3.4) 10^3/uL 1.08 L Absolute Monocytes (0.1-0.8) 10^3/uL 0.54 Absolute Eosinophils (0.0-0.7) 10^3/uL 0.04 Absolute Basophils (0.0-0.2) 10^3/uL 0.06 Medical Decision Making Quality:SDOH Health Related Social Needs: No Data to Display PFSH All Active Problems Left flank pain (Acute) Ureterolithiasis (Acute) Urinary frequency (Acute) Weight gain (Acute) Fatigue (Acute) Diabetes type 2, controlled (Acute) HTN (hypertension) (Chronic) Ventricular ectopy (Acute) MAX (dyspnea on exertion) (Acute) Morbid obesity (Acute) Numbness of right hand (Acute) History of back surgery (Acute) Medical History RSV bronchitis Gram-negative bacteremia Pyelonephritis Pyelonephritis of left kidney Severe sepsis LORENZO (acute kidney injury) Acute dehydration Insomnia RSV bronchitis Surgical History History of carpal tunnel release Right ECTR DOS: 09/24/2022 Left ECTR DOS: 10/08/2022 Failed back surgical syndrome Social History Smoking/Tobacco Use Status: Former Tobacco Use tobacco type: cigarettes Tobacco: How many years used: 15 Second Hand Exposure: Yes Smoking risk assessment performed?: Yes Alcohol Intake: current Alcohol Intake frequency: a few times a month Alcohol type: beer Drug use: Never Substance use type: does not use Details: quit smoking many years ago Housing: house Do you feel safe at home: Yes Do you feel safe in your relationship?: Yes PAWSS Have you Been Recently Intoxicated or Drunk Within the Last 30 days?: No Have you Ever Experienced Previous Episodes of Alcohol Withdrawal?: No Have you ever Experienced Withdrawal Seizures?: No Have you ever Experienced Delirium Tremens(DT)s?: No Have you ever undergone Alcohol Rehabilitation Treatment (i.e, inpt ot outpatient treatment programs)?: No Have you ever Experienced Blackouts?: No Have you ever Combined Alcohol with other Downers within the last 90 days?: No Have you ever Combined Alcohol with any other Substance of Abuse during the last 90 days?: No Positive Blood Alcohol level on Presentation? [PCS.BAL]: No Evidence of Increased Autonomic Activity (i.e. HR>120, tremor, sweating, agitation, nausea)?: No Result: 0
[2025-02-24 12:32] LABS: Anion Gap 10.3 mmol/L (3-11); BUN 17 mg/dL (7-18); CO2 27.7 mmol/L (21.0-32.0); CREATININE 1.1 mg/dL (0.70-1.30); Calcium 9.4 mg/dL (8.5-10.1); Chloride 101 mmol/L (98-107); Glucose 116 mg/dL (74-106); Potassium 4.2 mmol/L (3.5-5.1); Sodium 139 mmol/L (136-145)
[2025-02-24 14:30] LABS: Bilirubin Negative (Negative); Blood Large (Negative); Clarity Clear (Clear); Glucose Negative (Negative); Ketones Negative (Negative); Leukocyte Esterase Negative (Negative); Nitrite Negative (Negative); Specific Gravity >= 1.030 (1.005-1.025); Urobilinogen 0.2 mg/dL (Up to 0.2); pH 5.5 (5-8)
[2025-02-24 14:39] LABS: Bacteria Many HPF (Negative); C & S Indicated? No; Casts Negative LPF (Negative); Crystals Negative HPF (Negative); Epithelial Cells Moderate HPF (Negative); Mucus Trace (Negative); RBC >50 HPF (0-2); WBC 0-2 HPF (0-5)
[2025-02-24 15:01] VITALS: BP 158/91; PULSE 89; RESP 16; O2SAT 96
== END 2025-02-24 15:03 | disposition home or self-care (01) ==
PROVIDERS: Emergency Provider Emergency Medicine; PCP Nurse Practitioner Family
DX: R10.31 Right lower quadrant pain (principal); N20.1 Calculus of ureter; I10 Essential (primary) hypertension; E11.9 Type 2 diabetes mellitus without complications; Z79.82 Long term (current) use of aspirin; Z87.891 Personal history of nicotine dependence
CPT/HCPCS: 36415; 80048; 96361; 96374; 99284; 74176; 81003; 81015; 85025; J1885

== ENCOUNTER → 2025-03-01 08:15 | Outpatient (BNVA) | payer MEDICARE, SELFPAY | PROVIDERS: PCP Nurse Practitioner Family; Referring Provider Nurse Practitioner Family; Visit Provider Urology | DX: N20.1 Calculus of ureter (principal) | CPT/HCPCS: 99213 ==